=== PATIENT | male | born 1935 | race Caucasian/White ===

== ENCOUNTER 2017-12-18 10:51 | Outpatient (RCR) | payer MEDICARE, SELFPAY | END 2018-01-09 23:59 | disposition home or self-care (01) | LOC: PRC 10:51 | PROVIDERS: PCP Family Medicine; Visit Provider Internal Medicine | DX: Z51.89 Encounter for other specified aftercare (principal) ==

== ENCOUNTER 2018-02-17 06:30 | Inpatient (IN) | payer MEDICARE, SELFPAY ==
[2018-02-17] VITALS (124 sets, daily range): BP systolic 76–120; BP diastolic 50–80; PULSE 57–137; RESP 2–33; TEMP 34–37.2; O2SAT 67–98
--- NOTE | 2018-02-17 06:35 | W.ED.GENAD ---
Discharge Plan Disposition Patient Disposition: [facility] INPATIENT Condition: Serious Discharge Details Chief Complaint: SOB Clinical Impression: Community acquired pneumonia, Atrial fibrillation with RVR, Hypoxia, Sepsis, Hypotension Reason For Visit: ACUTE EXACERBATION OF COPD DUE TO CAP, RESP. FAILU Admit Date/Time: 02/17/18 09:52 Admit Provider: Heavenly Bonilla Attending Provider: Heavenly Bonilla Primary Care Provider: Avery Murphy ED Provider: Yadira Mabry Discharge Data Discharge Date/Time-TO BE ENTERED AT DEPARTURE: 02/17/18 13:08 Medical Decision Making <Khurram Cronin MD - Last Filed: 02/18/18 19:53> 82 yo male with hx of pulmonary hypertension who wears oxygen at night, afib on eliquis, htn, chf, who comes in with chief complaint of shortness of breath and cough since midnight. He denies chest pain or pressure or fevers, does have chills per the patient. He was given a duoneb and solumedrol with ems when his HR was in the 90's and now his HR is in the 130's in afib which is likely secondary to the beta agonists. Will given him metoprolol IV and his home oral dose and monitor. EKG does show st depressions but is likely due to tachycardia as he had same depresions on ekg on 03/20/17 when he was in afib with rvr, will send troponin to eval for infarction. Will obtain chest xray to evaluate for pneumonia and also test for influenza and monitor. He does have mild wheezing at the bases, has been given duoneb and solumedrol with ems, given his tachycardia will hold on additional beta agonists at this time. Pt does have tachypnea and oxygen saturations without oxygen are in the 70's, given work of breathing will initiate bipap. BP is 90 systolic on my exam with MAP of 60, will give 250cc bolus and monitor given his hx of pulmonary htn and chf do not want to volume overload Pt's BP now 100/65 after 250cc, appears more comfortable on bipap. Xray on my read shows right sided infiltrates, wbc of 21, will initiate coverage for CAP as patient denies being hospitalized in the past 3 months. HR is now in the 100's after IV metoprolol Pt's labs show jennifer, low magnesium which I will replete as well. States he does feel better and appearance and work of breathing have improved. We unfortunately don't have any icu or beds at all here, will try to find other hospitals that can accept the pt in transfer. at this time multiple hospitals have been contacted without a bed being found. Pt will be signed out pending an appropriate bed being found for the patient Differential Diagnosis pna, copd, chf, pe Imaging Data Radiologic Study: Attestation: I personally reviewed and interpreted this imaging study as follows: Imaging: X-Ray My impression: right sided infiltrates Lab Data Lab results reviewed: Yes I reviewed the patient's lab results. ECG Data Attestation: I personally reviewed and interpreted this ECG (s) as follows: Prior ECG tracings: available for review Interpretation: afib with rvr, rates in the 130's, qtc 500, st depressions diffusely with elevation in avr similar to ekg in 03/20/17 <Yadira Mabry DO - Last Filed: 02/18/18 12:56> Please see Dr. Cronin's notes for initial presentation, exam and plan. 82-year-old male with a history of COPD, pulmonary hypertension on 3 L of O2 at night, A. fib on Eliquis, CAD, diabetes, hypertension and high cholesterol who presents with cough and shortness of breath since midnight. states no recent antibiotics, recent hospital admission or known sick contacts. Patient was seen here yesterday for first scheduled pulmonary rehab for his COPD and pulmonary hypertension. Patient with O2 sat in the 60s on room air on arrival. Heart rate initially atrial fibrillation and low 100s on arrival, increased to 120s 130s and atrial fibrillation. He was given 5 mg of Lopressor, steroids, neb treatment, and placed on BiPAP and is now improved since arrival. Labs and imaging reviewed and note white blood cell count 21, anion gap 12, creatinine 1.82, magnesium 1.4, troponin 0 0.06, BNP 2393. Chest x-ray notes right lung patchy new infiltrate. Initial EKG noted a rate of 132 and atrial fibrillation with ST depression in V3 through V6 which is been seen in previous, new in II and aVF. No acute ST elevation. Upon my endorsement, plan was for admission or transfer for pneumonia, A. fib with RVR. 0920 --blood pressure remains low, systolic BP 70s-80s. Patient has only received 500 cc liter bolus. Will give an additional 500 cc liter bolus and reevaluate. O2 sat low 90s on BiPAP since arrival. RR low to high 20s but states he feels more comfortable. Will add ABG, albuterol neb, and Solu-Medrol and call hospitalist. 0940 -- d/w hospitalist - accepts pt for admission. 1030 -- SBP 101. RT unable to yet obtain ABG due to poor access. Will try again later. HPI <Khurram Cronin MD - Last Filed: 02/18/18 19:53> General Mode of arrival: EMS. Date/Time Provider Initiated Documentation: 02/17/18 06:35. Limitations to Documentation: no limitations. Information obtained by: patient. History of Present Illness 82 year old M presents to the emergency department with the chief complaint of shortness of breath, described as moderate, with intensity rated at 4. Patient started experiencing this hour(s) (7) and it has been constant. No exacerbating factors reported . Patient notes cough. Patient did receive the following treatments prior to arrival, other (duoneb and 125mg solumedrol with ems) Related Data Home Medications Medication Instructions Recorded Confirmed aspirin [Aspir-81] 81 mg PO DAILY tab-cap 05/11/12 02/17/18 Oxygen l HS #4 09/09/16 11/07/17 glipizide 5 mg PO DAILY #180 tab 09/09/16 02/17/18 metoprolol tartrate 100 mg PO BID #180 tab-cap 11/25/16 02/17/18 nitroglycerin [Nitrostat] 0.4 mg SUBLINGUAL PRN PRN #25 tab 11/25/16 02/17/18 Basaglar KwikPen U-100 Insulin 37 unit SQ Dinner Time 3 Days #3 02/24/17 02/17/18 box cyanocobalamin (vitamin B-12) 1,000 mcg PO DAILY #100 tab 03/24/17 02/17/18 [Vitamin B-12] amlodipine 5 mg PO DAILY 90 Days #90 tab-cap 06/05/17 02/17/18 apixaban 2.5 mg tablet 2.5 mg PO BID 90 Days #180 tab 10/23/17 02/17/18 furosemide 20 mg tablet 30 mg PO DAILY 90 Days #135 tab-cap 11/07/17 02/17/18 metformin 500 mg tablet 500 mg PO BID 11/07/17 02/17/18 methylprednisolone 4 mg tablets in 4 mg PO DIRECTED PRN #1 dose pk 11/07/17 02/17/18 a dose pack atorvastatin 40 mg tablet 40 mg PO DAILY #90 tab-cap 11/28/17 02/17/18 fluticasone 200 mcg-vilanterol 25 1 inh IH DAILY 11/28/17 02/17/18 mcg/dose powder for inhalation blood sugar diagnostic strips #180 strip 12/30/17 02/17/18 lancets 33 gauge #100 ndl 01/02/18 02/17/18 pen needle, diabetic 31 gauge x #100 ndl 01/02/18 02/17/1806/25 fluticasone 200 mcg-vilanterol 25 1 inh IH DAILY 01/09/18 02/17/18 mcg/dose powder for inhalation levothyroxine 75 mcg tablet 75 mcg PO DAILY@0600 #90 tab 02/16/18 02/17/18 Previous Rx's Medication Instructions Recorded metoprolol tartrate 100 mg PO BID #180 tab-cap 11/25/16 Bethel Cortez U-100 Insulin 37 unit SQ Dinner Time 3 Days #3 02/24/17 box cyanocobalamin (vitamin B-12) 1,000 mcg PO DAILY #100 tab 03/24/17 [Vitamin B-12] amlodipine 5 mg PO DAILY 90 Days #90 tab-cap 06/05/17 apixaban 2.5 mg tablet 2.5 mg PO BID 90 Days #180 tab 10/23/17 furosemide 20 mg tablet 30 mg PO DAILY 90 Days #135 tab-cap 11/07/17 methylprednisolone 4 mg tablets in 4 mg PO DIRECTED PRN #1 dose pk 11/07/17 a dose pack atorvastatin 40 mg tablet 40 mg PO DAILY #90 tab-cap 11/28/17 blood sugar diagnostic strips #180 strip 12/30/17 lancets 33 gauge #100 ndl 01/02/18 pen needle, diabetic 31 gauge x #100 ndl 01/02/1806/25 levothyroxine 75 mcg tablet 75 mcg PO DAILY@0600 #90 tab 02/16/18 Allergies Allergy/AdvReac Type Severity Reaction Status Date / Time clindamycin Allergy Intermediate rash Unverified 02/17/18 10:00 EMEKA Inhibitors Allergy Unknown Unverified 02/17/18 10:00 gemfibrozil Allergy Unknown Unverified 02/17/18 10:00 lisinopril Allergy Unknown Unverified 02/17/18 10:00 oxycodone Allergy Unknown Unverified 02/17/18 10:00 indomethacin AdvReac Intermediate AVOID due Unverified 02/17/18 10:00 to ANTICOAGULATION Thiazides AdvReac Unknown Unverified 02/17/18 10:00 Review of Systems <Khurram Cronin MD - Last Filed: 02/18/18 19:53> Review of Systems All systems reviewed & are unremarkable except as noted in HPI and below Constitutional Denies fever(s) and Denies weakness Eyes Denies loss of vision ENT Denies change in voice Cardiovascular Denies chest pain Gastrointestinal Denies abdominal pain, Denies nausea and Denies vomiting Genitourinary Denies dysuria Musculoskeletal Denies joint swelling Integumentary/Breasts Denies rash Neurologic Denies loss of vision and Denies weakness Psychiatric Denies depression Endocrine Denies heat intolerance PFS <Khurram Cronin MD - Last Filed: 02/18/18 19:53> Medical History Other acute and subacute form of ischemic heart disease (Chronic 06/07/11) Obesity, unspecified (Chronic 02/15/11) 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 (Chronic 06/07/11) Hyperlipidemia (Chronic 02/15/11) Hearing loss (Chronic 02/15/11) Essential hypertension (Chronic 02/15/11) Dyspnea on exertion (Chronic 05/11/13) Diabetes mellitus (Chronic 08/10/00) Cough (Resolved 04/03/12) Coronary artery disease involving [place] coronary artery of [place] heart without angina pectoris (Chronic) Chronic atrial fibrillation (Chronic) Coronary atherosclerosis of [place] coronary vessel (Chronic 02/15/11) Benign neoplasm of colon (Resolved 02/15/11) Atrial arrhythmia (Chronic 02/15/11) Atherosclerosis of [place] coronary artery of [place] heart with unstable angina pectoris (Chronic 02/15/11) Anticoagulation goal of INR 2 to 3 (Resolved 05/12/11) Anticoagulation adequate with anticoagulant therapy (Chronic 05/12/11) Adenoma of transverse colon (Resolved 02/15/11) Arthropathy (Chronic 02/15/11) Restrictive pattern present on pulmonary function testing (Chronic) Abnormal diffusion capacity determined by pulmonary function test (Chronic) RML pneumonia (Resolved) Gout (Chronic) Hypothyroid (Chronic) B12 deficiency (Chronic) Macrocytosis without anemia (Chronic) ASCVD (arteriosclerotic cardiovascular disease) HLD (hyperlipidemia) HTN (hypertension) T2DM (type 2 diabetes mellitus) Tubular adenoma Surgical History Fracture, tibia (Acute ~02/1994) History of appendectomy (Chronic ~01/1954) Hx of CABG (Chronic ~02/2002) Hx of cholecystectomy (Chronic ~01/1991) Family History Mother Cancer Father Stroke Hypertension Sister No problems noted. Brother No problems noted. Brother No problems noted. 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 water heater temp set < 120 deg: Yes working smoke detector in home: Yes fire extinguisher in home: Yes carbon monox detector in home: Yes victim of physical abuse: No victim of emotional abuse: No victim of sexual abuse: No additional social history: info from old record Exam <Khurram Cronin MD - Last Filed: 02/18/18 19:53> Const Orientation: alert [facility] Head: normal to inspection Ears: external ears normal General nose exam: external nose normal Mouth: moist mucous membranes Eyes General: appearance normal, both eyes and all related structures Neck Neck: normal visual inspection Resp Effort & Inspection: no pursed lip breathing Cardio Rate: regular rate Skin General skin exam: no rashes or lesions noted Neuro General: alert and oriented x3 Extrem General: normal to inspection Psych Mental Status: mental status grossly normal Critical Care Time <Khurram Cronin MD - Last Filed: 02/18/18 19:53> Critical Care Time: Yes Total Critical Care Time: 60 Attestation: time spent reviewing ekgs, labs, and frequent reassessments in patient with afib with rvr and hypoxia requiring bipap and potential to deteriorate at any time Sign Out <Khurram Cronin MD - Last Filed: 02/18/18 19:53> Sign Out Data: Sign Out Comment: try to find a bed for the patient Last updated by Khurram Cronin MD at 02/17/18 07:45
[2018-02-17] MEDS: Metoprolol 5 MG/5 ML VIAL IVP (06:50)
[2018-02-17] MEDS: Normal Saline 1,000 ML 1000 ML IV (06:50)
[2018-02-17 06:55] LABS: Abs Immature Grans 0.08 k/cumm (0.0-0.09); Absolute Basophil Count 0.02 k/cumm (0.0-0.2); Absolute Eosinophil Count 0.04 k/cumm (0.0-0.7); Absolute Lymphocyte Count 0.96 k/cumm (1.2-3.4); Basophils % 0.1; Eosinophils % 0.2; HCT 50.1 % (40.0-50.0); HGB 16.2 g/dL (13.5-17.5); Immature Grans % 0.4; Lymphocytes % 4.5; Mean Corp. HGB Concentration 32.3 g/dL (32.0-36.0); Mean Corpuscular Hemoglobin 30.1 pg (27.0-33.0); Mean Corpuscular Volume 93.1 fL (80-95); Mean Platelet Volume 12.2 fL (8.0-11.0); Monocytes % 6.9; Neutrophils % 87.9; Platelet Count 178 x1000/uL (130-400); RBC 5.38 m/cumm (4.50-6.00); RBC Distribution Width 15.5 % (11.8-14.1); White Blood Cell Count 21.26 k/cumm (4.4-10.8)
[2018-02-17] MEDS: Normal Saline Flush 10 ML SYR IVP ×5 (06:56→17:24)
--- NOTE | 2018-02-17 07:00 | DI.RAD_ITS ---
SYMPTOMS/DIAGNOSIS: SHORTNESS OF BREATH PORTABLE FRONTAL CHEST: Comparison 04/10/17. The heart size is stable and within normal limits. Sternal wires are in place. The left lung is clear. There is an infiltrate seen in the right upper and right lower lobes. There is blunting of the right costophrenic angle which appears stable and is likely scarring. No pneumothorax is seen. No left pleural effusion is present. There are degenerative changes seen in the spine. IMPRESSION: Right upper and right lower lobe pneumonia.
[2018-02-17 07:07] LABS: Absolute Monocyte Count 1.47 k/cumm (0.11-0.7); Absolute Neutrophil Count 18.69 k/cumm (1.2-6.7); INR 1.2 (0.9-1.1); PTT Activated 22.6 sec (21.0-31.4); Prothrombin Time 12.1 sec (9.3-11.0)
[2018-02-17] MEDS: Metoprolol 50 MG TAB 100 MG PO ×2 (07:07→20:28)
[2018-02-17 07:15] LABS: ALT 25 U/L (12-78); AST 15 U/L (15-37); Albumin 3.4 g/dL (3.4-5.0); Alkaline Phosphatase 82 U/L (46-116); Anion Gap 12.2 mmol/L (3-11); BUN 31 mg/dL (7-18); Bilirubin, Total 0.8 mg/dL (0.2-1.0); CO2 24.8 mmol/L (21.0-32.0); CREATININE 1.82 mg/dL (0.70-1.30); Calcium 8.7 mg/dL (8.5-10.1); Chloride 105 mmol/L (98-107); Estimated GFR 35.93 (mL/min/1.73m2); Glucose 203 mg/dL (70-100); Magnesium 1.4 mg/dL (1.8-2.4); NT-proBNP 2393 pg/mL; Potassium 3.8 mmol/L (3.5-5.1); Sodium 142 mmol/L (136-145); Total Protein 6.4 g/dL (6.4-8.2); Troponin I 0.06 ng/mL (0.00-0.06)
[2018-02-17] MEDS: MAGNESIUM SULFATE 1 GM/100 ML BAG IVPB ×2 (08:04→14:47)
[2018-02-17] MEDS: AZITHROMYCIN 500 MG in Normal Saline 250 ML 250 MG IVPB (08:06)
--- NOTE | 2018-02-17 09:17 | DI.VRAD_ITS ---
EXAM: XR Chest, 1 View EXAM DATE/TIME: 02/17/2018 6:37 AM CLINICAL HISTORY: 82 years old, male; Signs and symptoms; Shortness of breath; Prior surgery; Surgery date: 6+ months; Surgery type: Cabg; Patient HX: SOB, low o2 stat TECHNIQUE: XR of the chest, 1 view. COMPARISON: CR CHEST 2 VIEWS PA,LAT 04/10/2017 8:51 AM FINDINGS: Lungs: There is new patchy infiltrate throughout much of the right lung, sparing the apex. Some retrocardiac atelectasis or infiltrate is also present. Pleural space: Unremarkable. No pleural effusion. No pneumothorax. Heart/Mediastinum: The cardiomediastinal silhouette is fairly stable in appearance. Bones/joints: Median sternotomy wires are again present. Degenerative changes again involve the spine and shoulders. IMPRESSION: Patchy infiltrate throughout much of the right lung, sparing the apex, with some retrocardiac atelectasis or infiltrate. Dictated and Authenticated by: Khurram Driscoll MD. Ordering:DOUG Paulson MD
[2018-02-17 09:29] LABS: Lactate-non-spesis 2.8 mmol/L (0.6-1.4)
[2018-02-17] MEDS: Normal Saline 250 ML 500 ML IV (09:29)
[2018-02-17] MEDS: Albuterol 2.5 MG/3 ML INH SOLN VIAL UPD (09:47)
[2018-02-17] MEDS: methylPREDNISolone SUCC 125 MG VIAL IVP (09:54)
[2018-02-17 12:00] LABS: Bilirubin Negative (Negative); Blood Negative (Negative); Clarity Clear; Glucose Negative (Negative); Ketones Trace mg/dL (Negative); Leukocyte Esterase Negative (Negative); Nitrite Negative (Negative); Specific Gravity >= 1.030 (1.005-1.025); pH 5.5 (5-8)
[2018-02-17 12:14] LABS: Bacteria Few HPF (Negative); Crystals Mod Calcium Oxalate HPF (Negative); Epithelial Cells Rare HPF (Negative); Mucus Moderate (Negative); RBC Negative (0-2); WBC 0-2 HPF (0-5)
[2018-02-17 12:15] LABS: C & S Indicated? No; Casts 3-5 Hyaline LPF (Negative)
[2018-02-17 12:19] LABS: HCO3 21 mmol/L (22-28); pCO2 35 mmHg (34-47); pH 7.39 (7.35-7.45); pO2 144 mmHg (83-108); sO2 99 % (94-98); tCO2 18 mmol/L (22-29)
[2018-02-17 12:21] LABS: BE -4.4 mmol/L (-3-3); FIO2L BiPAP 12/5 L; Site Right Radial
[2018-02-17 12:22] LABS: FIO2 100% %
--- NOTE | 2018-02-17 14:10 | PT.INIE ---
Date of service: 02/17/18 Time of Service: 14:10 PT Notes Inpatient Physical Therapy Evaluation Date: 02/17/2018 Referring Doctor: Heavenly Bonilla MD PT Orders: PT CONSULT: Eval/treat Precautions: Monitor O2 sats with activity Patient Profile/Admitting Diagnosis: Patient is an 82-year-old male admitted with pneumonia, atrial fibrillation, hypoxia PMHX: Restrictive lung disease, pulmonary hypertension, chronic obstructive pulmonary disease, coronary artery disease, mitral and aortic valve stenosis and insufficiency affecting both valves, congestive heart failure, hypertension, atrial fibrillation, diabetes mellitus type II, hearing loss, hyperlipidemia, adenoma of transverse colon, gout, hypothyroid, B12 deficiency, macrocytosis without anemia Social History/Home Situation: Lives with in a house 2 steps no railing to enter, 12 steps with railing to upstairs. Equipment Owned/DME: None Subjective: Patient lying in bed RN in room, patient visiting with , agreeable to PT consult. Objective: General Observation: Airflow to 15 L oxygen airflow settings 45 L/min, 65%, telemetry, BP monitor Mental Status: A and O x3 Pain: No complaints of pain Vital Signs: 93% on above oxygen settings ROM: Right Upper Extremity: AROM WNL Left Upper Extremity: AROM WNL Right Lower Extremity: AROM WNL Left Lower Extremity: AROM WNL Strength: Right Upper Extremity: 4/5 shoulder flexion, 5/5 bicep, 5/5 aircraft lay out worker Left Upper Extremity: 4/5 shoulder flexion, 5/5 bicep, 5/5 aircraft lay out worker Right Lower Extremity: 5/5 throughout Left Lower Extremity: 5/5 throughout Bed Mobility/Transfers: Supine to sit: HOB 30 degrees independent Sit to stand: SBA with FWW Stand to sit: SBA Sit to supine: Independent Gait: SBA with FWW standing at bedside marching in place x30 repetitions. Patient without shortness of breath on exertion. Therex: Ankle pumps, long arc quad x20 reps Balance: Static Sitting: Normal Dynamic Sitting: Normal Static Standing: Fair Dynamic Standing: Fair Special Tests: Mobility Limitations Standardized Measure [facility] AM-PAC 6 clicks Basic Mobility Inpatient Short Form: Raw Score: 18 standardized Score: 43.63 CMS Score: 46.58% CMS Modifier: CK Informed Consent/Education: Patient instructed in purpose of PT consult and plan of care. Assessment: Patient is an 82-year-old male admitted with pneumonia, atrial fibrillation, hypoxia in setting of Restrictive lung disease, pulmonary hypertension, chronic obstructive pulmonary disease, coronary artery disease, mitral and aortic valve stenosis and insufficiency affecting both valves, congestive heart failure, hypertension, atrial fibrillation. Patient presents with the following impairment level findings: Decreased strength with standing transfers and gait mobility, high oxygen requirements due to admission with hypoxia and pneumonia. Patient will benefit from skilled therapy intervention for strengthening and progressive mobility training. Anticipate return to home setting when medically cleared. Impairments are contributing to the following functional limitations: AMPAC score CMS Score: 46.58% Patient is assessed as a Moderate 71255 complexity based on the following: History: See above Examination: See above Presentation: Evolving Decision Making: AMPAC score CMS Score: 46.58% Goals: Goals X1 week 1. Supine-Sit: Independent 2. Sit-Supine: Independent 3. Sit-Stand: Independent 4. Stand-Sit: Independent 5. Bed-Chair: Supervision 6. Chair-Bed: Supervision 7. Gait: Supervision no assistive device 100 feet x2 8. Stairs: Up/down 12 steps with railing, supervision Plan of Care/Treatment Plan: 1-2x/day, 7 days/week x 1 week. Plan of care has been reviewed with the ELECTRONICS ENGINEERING MANAGER providing the service under Physical Therapy direction. Initiate Physical Therapy intervention for strengthening, bed mobility, transfers, gait, stairs, balance training, use of assistive device. DISCHARGE RECOMMENDATIONS: Home with TREATMENT CODE/TIME: 25 minutes IE 1410 G Codes in the area mobility of walking and moving around: current status [id number] CK; projected status GP [id number]. Discharge status (if discharging) GP [id number] CK based on AMPA scores Kiki Panda PT, CLT [facility] Disclaimer: This note was created using [employer] voice recognition software. It was reviewed for major content. However, there may be multiple small discrepancies and errors due to the voice recognition aspects of the software..
--- NOTE | 2018-02-17 14:14 | IN_ITS ---
Date of service: 02/17/18 Time of Service: 14:10 PT Notes Inpatient Physical Therapy Evaluation Date: 02/17/2018 Referring Doctor: Heavenly Bonilla MD PT Orders: PT CONSULT: Eval/treat Precautions: Monitor O2 sats with activity Patient Profile/Admitting Diagnosis: Patient is an 82-year-old male admitted with pneumonia, atrial fibrillation, hypoxia PMHX: Restrictive lung disease, pulmonary hypertension, chronic obstructive pulmonary disease, coronary artery disease, mitral and aortic valve stenosis and insufficiency affecting both valves, congestive heart failure, hypertension, atrial fibrillation, diabetes mellitus type II, hearing loss, hyperlipidemia, adenoma of transverse colon, gout, hypothyroid, B12 deficiency, macrocytosis without anemia Social History/Home Situation: Lives with in a house 2 steps no railing to enter, 12 steps with railing to upstairs. Equipment Owned/DME: None Subjective: Patient lying in bed RN in room, patient visiting with , agreeable to PT consult. Objective: General Observation: Airflow to 15 L oxygen airflow settings 45 L/min, 65%, telemetry, BP monitor Mental Status: A and O x3 Pain: No complaints of pain Vital Signs: 93% on above oxygen settings ROM: Right Upper Extremity: AROM WNL Left Upper Extremity: AROM WNL Right Lower Extremity: AROM WNL Left Lower Extremity: AROM WNL Strength: Right Upper Extremity: 4/5 shoulder flexion, 5/5 bicep, 5/5 manager pmo Left Upper Extremity: 4/5 shoulder flexion, 5/5 bicep, 5/5 manager pmo Right Lower Extremity: 5/5 throughout Left Lower Extremity: 5/5 throughout Bed Mobility/Transfers: Supine to sit: HOB 30 degrees independent Sit to stand: SBA with FWW Stand to sit: SBA Sit to supine: Independent Gait: SBA with FWW standing at bedside marching in place x30 repetitions. Patient without shortness of breath on exertion. Therex: Ankle pumps, long arc quad x20 reps Balance: Static Sitting: Normal Dynamic Sitting: Normal Static Standing: Fair Dynamic Standing: Fair Special Tests: Mobility Limitations Standardized Measure [facility] AM-PAC 6 clicks Basic Mobility Inpatient Short Form: Raw Score: 18 standardized Score: 43.63 CMS Score: 46.58% CMS Modifier: CK Informed Consent/Education: Patient instructed in purpose of PT consult and plan of care. Assessment: Patient is an 82-year-old male admitted with pneumonia, atrial fibrillation, hypoxia in setting of Restrictive lung disease, pulmonary hypertension, chronic obstructive pulmonary disease, coronary artery disease, mitral and aortic valve stenosis and insufficiency affecting both valves, congestive heart failure, hypertension, atrial fibrillation. Patient presents with the following impairment level findings: Decreased stren gth with standing transfers and gait mobility, high oxygen requirements due to admission with hypoxia and pneumonia. Patient will benefit from skilled therapy intervention for strengthening and progressive mobility training. Anticipate return to home setting when medically cleared. Impairments are contributing to the following functional limitations: AMPAC score CMS Score: 46.58% Patient is assessed as a Moderate 77603 complexity based on the following: History: See above Examination: See above Presentation: Evolving Decision Making: AMPAC score CMS Score: 46.58% Goals: Goals X1 week 1. Supine-Sit: Independent 2. Sit-Supine: Independent 3. Sit-Stand: Independent 4. Stand-Sit: Independent 5. Bed-Chair: Supervision 6. Chair-Bed: Supervision 7. Gait: Supervision no assistive device 100 feet x2 8. Stairs: Up/down 12 steps with railing, supervision Plan of Care/Treatment Plan: 1-2x/day, 7 days/week x 1 week. Plan of care has been reviewed with the SET KEY DRIVER providing the service under Physical Therapy direction. Initiate Physical Therapy intervention for strengthening, bed mobility, transfers, gait, stairs, balance training, use of assistive device. DISCHARGE RECOMMENDATIONS: Home with TREATMENT CODE/TIME: 25 minutes IE 1410 G Codes in the area mobility of walking and moving around: current status [id number] CK; projected status GP [id number]. Discharge status (if discharging) GP G8980 CK based on AMPAC scores Kiki Panda PT, CLT [facility] Disclaimer: This note was created using [employer] voice recognition software. It was reviewed for major content. However, there may be multiple small discrepancies and errors due to the voice recognition aspects of the software..
[2018-02-17] MEDS: MAGNESIUM SULFATE 2 GM/50 ML BAG IVPB (15:59)
[2018-02-17] MEDS: Insulin Aspart 300 UNITS/3 ML PEN SC ×2 (17:19→20:58)
[2018-02-17] MEDS: methylPREDNISolone SUCC 125 MG VIAL 80 MG IVP (17:25)
--- NOTE | 2018-02-17 18:09 | HPE_ITS ---
Date of service: 02/17/18 Time of Service: 11:30 Assessment and Plan (1) Sepsis: Current visit: Yes Status: Acute Due to CAP. Impending shock on presentation, luckily responded to fluids. Continue to monitor in the ICU overnight with serial lactates. Patient could not tolerate ongoing IVF due to developing fluid overload, and his BP's now stabilized. Continue azithromycin/rocephin. Await blood/sputum cultures. (2) CAP (community acquired pneumonia): Current visit: Yes Status: Acute As above (3) Acute and chronic respiratory failure with hypoxia: Current visit: Yes Status: Acute Requiring BiPAP, now improving. ABG done after Bipap had been on for over an hour reveals no CO2 retention and preserved PH, but hypoxia. The patient was transitioned to heated humidified high flow. Wean O2 as tolerated. Treat disease process as above. In addition, systemic steroids were added. (4) Chronic atrial fibrillation: Current visit: No Status: Chronic with RVR on initial presentation, treated with beta blockers, now rate controlled. Continue home beta blockers. (5) Hypomagnesemia: Current visit: Yes Status: Acute Replete and monitor (6) Pulmonary hypertension: Current visit: No Status: Acute Follows with pulmonary and [facility] pulmonary hypertension clinic. Volume control essential. IVF d/c'ed. Monitor I/O's and daily weights. (7) Restrictive lung disease: Current visit: No Status: Acute Does seem to have a response to bronchodilators - continue nebs. (8) Type 2 diabetes mellitus with hyperglycemia: Current visit: No Status: Acute Continue home lantus with corrective scale. 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 Monitor strict I/O's and daily weights. (10) Essential hypertension: Current visit: No Status: Chronic hold norvasc. Ok to continue BB. (11) Coronary artery disease involving [place] coronary artery of [place] heart without angina pectoris: Current visit: No Status: Chronic No evidence of ACS. Continue home therapy. (12) JOSE (acute kidney injury): Current visit: Yes Status: Acute Patient was cautiously hydrated in the ER. Recheck BMP in am. (13) Discharge planning issues: Current visit: Yes Status: Acute Patient states he is DNR/DNI and that he has forms on file here and at [facility]. (14) DVT prophylaxis: Current visit: Yes Status: Acute On therapeutic eliquis History of Present Illness Chief Complaint: shortness of breath Narrative: Mr Peoples is an 82 year old male with PMHx of chronic hypoxic respiratory failure, on nocturnal oxygen at 6L, as well as severe pulmonary hypertension, restrictive lung disease, CAD s/p CABG, chronic systolic CHF with EF of 45-50%, Afib on eliquis, who presented to [facility] ED this morning after an acute onset of shortness of breath since 1 am this morning as well as dry cough. The patient stated he felt like he was coming down with a cold for the last couple of days. He denies chills, fevers, runny nose, sore throat, or sick contacts. He participates with pulmonary rehab and was just there yesterday, at about his baseline. When the patient arrived to the ED, his O2 sats on room air were in the 80's. He was in respiratory distress to the point of needing BiPAP. He was also hypotensive with SBP's in the 70's-80's. He did respond to IV fluids, was treated with steroids, nebulizers, and IV antibiotics (azithromycin, rocephin). He is being admitted to [facility] ICU for further care. Review of Systems Review of Systems 12 systems reviewed. Pertinent positives and negatives are as per HPI. 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 (Chronic 06/07/11) Hyperlipidemia (Chronic 02/15/11) Hearing loss (Chronic 02/15/11) Essential hypertension (Chronic 02/15/11) Dyspnea on exertion (Chronic 05/11/13) Diabetes mellitus (Chronic 08/10/00) Cough (Resolved 04/03/12) Coronary artery disease involving [place] coronary artery of [place] heart without angina pectoris (Chronic) Chronic atrial fibrillation (Chronic) Coronary atherosclerosis of [place] coronary vessel (Chronic 02/15/11) Benign neoplasm of colon (Resolved 02/15/11) Atrial arrhythmia (Chronic 02/15/11) Atherosclerosis of [place] coronary artery of [place] heart with unstable angina pectoris (Chronic 02/15/11) Anticoagulation goal of INR 2 to 3 (Resolved 05/12/11) Anticoagulation adequate with anticoagulant therapy (Chronic 05/12/11) Adenoma of transverse colon (Resolved 02/15/11) Arthropathy (Chronic 02/15/11) Restrictive pattern present on pulmonary function testing (Chronic) Abnormal diffusion capacity determined by pulmonary function test (Chronic) RML pneumonia (Resolved) Gout (Chronic) Hypothyroid (Chronic) B12 deficiency (Chronic) Macrocytosis without anemia (Chronic) ASCVD (arteriosclerotic cardiovascular disease) HLD (hyperlipidemia) HTN (hypertension) T2DM (type 2 diabetes mellitus) Tubular adenoma Surgical History Fracture, tibia (Acute ~02/1994) History of appendectomy (Chronic ~01/1954) Hx of CABG (Chronic ~02/2002) Hx of cholecystectomy (Chronic ~01/1991) Family History Mother Cancer Father Stroke Hypertension Sister No problems noted. Brother No problems noted. Brother No problems noted. 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 driver: No water heater temp set < 120 deg: Yes working smoke detector in home: Yes fire extinguisher in home: Yes carbon monox detector in home: Yes victim of physical abuse: No victim of emotional abuse: No victim of sexual abuse: No additional social history: info from old record Meds Home Medications Medication Instructions Recorded Confirmed Type aspirin [Aspir-81] 81 mg PO DAILY tab-cap 05/11/12 02/17/18 History Oxygen l HS #4 09/09/16 11/07/17 History glipizide 5 mg PO DAILY #180 tab 09/09/16 02/17/18 History metoprolol tartrate 100 mg PO BID #180 tab-cap 11/25/16 02/17/18 Rx nitroglycerin [Nitrostat] 0.4 mg SUBLINGUAL PRN PRN #25 tab 11/25/16 02/17/18 History Bet[place] Cortez U-100 Insulin 37 unit SQ Dinner Time 3 Days #3 02/24/17 02/17/18 Rx box cyanocobalamin (vitamin B-12) 1,000 mcg PO DAILY #100 tab 03/24/17 02/17/18 Rx [Vitamin B-12] amlodipine 5 mg PO DAILY 90 Days #90 tab-cap 06/05/17 02/17/18 Rx apixaban 2.5 mg tablet 2.5 mg PO BID 90 Days #180 tab 10/23/17 02/17/18 Rx furosemide 20 mg tablet 30 mg PO DAILY 90 Days #135 tab-cap 11/07/17 02/17/18 Rx metformin 500 mg tablet 500 mg PO BID 11/07/17 02/17/18 History methylprednisolone 4 mg tablets in 4 mg PO DIRECTED PRN #1 dose pk 11/07/17 02/17/18 Rx a dose pack atorvastatin 40 mg tablet 40 mg PO DAILY #90 tab-cap 11/28/17 02/17/18 Rx fluticasone 200 mcg-vilanterol 25 1 inh IH DAILY 11/28/17 02/17/18 History mcg/dose powder for inhalation blood sugar diagnostic strips #180 strip 12/30/17 02/17/18 Rx lancets 33 gauge #100 ndl 01/02/18 02/17/18 Rx pen needle, diabetic 31 gauge x #100 ndl 01/02/18 02/17/18 Rx 5/16 fluticasone 200 mcg-vilanterol 25 1 inh IH DAILY 01/09/18 02/17/18 History mcg/dose powder for inhalation levothyroxine 75 mcg tablet 75 mcg PO DAILY@0600 #90 tab 02/16/18 02/17/18 Rx Allergies Allergy/AdvReac Type Severity Reaction Status Date / Time clindamycin Allergy Intermediate rash Unverified 02/17/18 10:00 EMEKA Inhibitors Allergy Unknown Unverified 02/17/18 10:00 gemfibrozil Allergy Unknown Unverified 02/17/18 10:00 lisinopril Allergy Unknown Unverified 02/17/18 10:00 oxycodone Allergy Unknown Unverified 02/17/18 10:00 indomethacin AdvReac Intermediate AVOID due Unverified 02/17/18 10:00 to ANTICOAGULATION Thiazides AdvReac Unknown Unverified 02/17/18 10:00 Exam Narrative Exam Narrative: General: Very pleasant elderly male, sitting up in bed on Bipap, which limits our interview. Not in acute distress Neurological: A&Ox3, hard of hearing, no focal deficits Psychiatric: appropriate speech pattern/content Skin: Redness underneath the bipap mask over the nasal bridge; chronic venous stasis dermatitis HEENT: oropharyngeal exam deferred as patient is on BiPAP. EOMI, MMM, no obvious JVD, no sumbandibular/cervical lymphadenopathy, no goiter Cardiovascular: Irregularly irregular rhythm, + ASHISH Lungs: Wheezing on expiration B, crackles at B bases Gastrointestinal: abdomen soft, nontender, nondistended Extremities: +1 edema BLE's, no clubbing/cyanosis Results Imaging Additional studies: CXR: RUL/RLL PNA EKG: Afib with RVR, HR 132, incomplete RBBB, morphology unchanged Labs : 02/17/18 06:40 02/17/18 06:40 Laboratory Results - last 24 hr 02/17/18 02/17/18 02/17/18 06:40 06:40 06:40 WBC 21.26 H RBC 5.38 Hgb 16.2 Hct 50.1 H MCV 93.1 MCH 30.1 MCHC 32.3 RDW 15.5 H Plt Count 178 MPV 12.2 H Immature Gran % 0.4 Neutrophils % 87.9 Lymphocytes % 4.5 Monocytes % 6.9 Eosinophils % 0.2 Basophils % 0.1 Absolute Neutrophils 18.69 H Absolute Lymphocytes 0.96 L Absolute Monocytes 1.47 H Absolute Eosinophils 0.04 Absolute Basophils 0.02 PT 12.1 H INR 1.2 H APTT 22.6 Sample Site pCO2 pO2 O2 Saturation ABG pH ABG HCO3 ABG Total CO2 ABG Base Excess Oxygen Liter Flow FiO2 Sodium 142 Potassium 3.8 Chloride 105 Carbon Dioxide 24.8 Anion Gap 12.2 H BUN 31 H Creatinine 1.82 H Estimated GFR/1.73 m2 35.93 Glucose 203 H Lactate Calcium 8.7 Magnesium 1.4 L Total Bilirubin 0.8 AST 15 ALT 25 Alkaline Phosphatase 82 Troponin I 0.06 NT-Pro-B Natriuret Pep 2393 H Total Protein 6.4 Albumin 3.4 Urine Color Urine Clarity Urine pH Ur Specific [place] Urine Protein Urine Ketones Urine Blood Urine Nitrite Urine Bilirubin Urine Urobilinogen Ur Leukocyte Esterase Urine RBC Urine WBC Ur Epithelial Cells Urine Crystals Urine Bacteria Urine Casts Urine Mucus Ur Culture Indicated? Urine Glucose 02/17/18 02/17/18 02/17/18 09:22 09:42 11:45 WBC RBC Hgb Hct MCV MCH MCHC RDW Plt Count MPV Immature Gran % Neutrophils % Lymphocytes % Monocytes % Eosinophils % Basophils % Absolute Neutrophils Absolute Lymphocytes Absolute Monocytes Absolute Eosinophils Absolute Basophils PT INR APTT Sample Site Right radial pCO2 35 pO2 144 H O2 Saturation 99 H ABG pH 7.39 ABG HCO3 21 L ABG Total CO2 18 L ABG Base Excess -4.4 L Oxygen Liter Flow Bipap 12/5 FiO2 100% Sodium Potassium Chloride Carbon Dioxide Anion Gap BUN Creatinine Estimated GFR/1.73 m2 Glucose Lactate 2.8 H Calcium Magnesium Total Bilirubin AST ALT Alkaline Phosphatase Troponin I NT-Pro-B Natriuret Pep Total Protein Albumin Urine Color Suzette Urine Clarity Clear Urine pH 5.5 Ur Specific [place] >= 1.030 H Urine Protein Trace H Urine Ketones Trace H Urine Blood Negative Urine Nitrite Negative Urine Bilirubin Negative Urine Urobilinogen 1.0 H Ur Leukocyte Esterase Negative Urine RBC Negative Urine WBC 0-2 Ur Epithelial Cells Rare Urine Crystals Mod calcium oxalate Urine Bacteria Few Urine Casts 3-5 hyaline Urine Mucus Moderate Ur Culture Indicated? No Urine Glucose Negative Last Vital Signs Temp 36.9 C 02/17/18 15:03 Pulse 79 02/17/18 13:31 Resp 19 02/17/18 13:40 BP 93/54 L 02/17/18 13:31 Pulse Ox 94 L 02/17/18 15:03
[2018-02-17] MEDS: Albuterol/Ipratropium 3 ML UPD VIAL UPD (18:41)
[2018-02-17 18:51] LABS: Lactate-non-spesis 3.1 mmol/L (0.6-1.4)
[2018-02-17] MEDS: Apixaban 2.5 MG TAB PO (20:28)
[2018-02-17] MEDS: guaiFENesin 600 MG TABCR PO (20:28)
[2018-02-17] MEDS: Budesonide/Formoterol 160/4.5 6 GM 60 PUFF INH IH (20:29)
[2018-02-17] MEDS: Insulin Glargine 300 UNITS/3 ML PEN 37 UNITS SC (20:57)
[2018-02-17 22:23] LABS: Lactate-non-spesis 3.1 mmol/L (0.6-1.4)
[2018-02-18] VITALS (94 sets, daily range): BP systolic 92–140; BP diastolic 59–97; PULSE 54–94; RESP 2–29; TEMP 34–37.2; O2SAT 84–99
[2018-02-18] MEDS: Normal Saline Flush 10 ML SYR IVP ×2 (02:24→09:34)
[2018-02-18] MEDS: Albuterol/Ipratropium 3 ML UPD VIAL UPD ×5 (02:24→23:41)
[2018-02-18] MEDS: methylPREDNISolone SUCC 125 MG VIAL 80 MG IVP ×3 (02:25→18:26)
[2018-02-18] MEDS: Levothyroxine 75 MCG TAB PO (06:20)
[2018-02-18 07:19] LABS: Anion Gap 9.2 mmol/L (3-11); BUN 32 mg/dL (7-18); CO2 24.8 mmol/L (21.0-32.0); CREATININE 1.34 mg/dL (0.70-1.30); Calcium 8.4 mg/dL (8.5-10.1); Chloride 103 mmol/L (98-107); Estimated GFR 51.16 (mL/min/1.73m2); Glucose 258 mg/dL (70-100); Magnesium 2.4 mg/dL (1.8-2.4); Potassium 4.4 mmol/L (3.5-5.1); Sodium 137 mmol/L (136-145)
[2018-02-18] MEDS: Budesonide/Formoterol 160/4.5 6 GM 60 PUFF INH IH ×2 (07:22→20:25)
[2018-02-18 07:24] LABS: Abs Immature Grans 0.08 k/cumm (0.0-0.09); Absolute Lymphocyte Count 0.79 k/cumm (1.2-3.4); Immature Grans % 0.4; Lymphocytes % 3.9; Mean Corp. HGB Concentration 32.7 g/dL (32.0-36.0); Mean Corpuscular Hemoglobin 30.3 pg (27.0-33.0); Mean Corpuscular Volume 92.7 fL (80-95); Mean Platelet Volume 13.2 fL (8.0-11.0); Monocytes % 4.7; Platelet Count 111 x1000/uL (130-400); RBC 4.26 m/cumm (4.50-6.00); RBC Distribution Width 15.3 % (11.8-14.1); White Blood Cell Count 20.28 k/cumm (4.4-10.8)
[2018-02-18 07:25] LABS: Absolute Monocyte Count 0.95 k/cumm (0.11-0.7); Absolute Neutrophil Count 18.45 k/cumm (1.2-6.7); HCT 39.5 % (40.0-50.0); HGB 12.9 g/dL (13.5-17.5)
--- NOTE | 2018-02-18 09:01 | PDOC.CMIN ---
- If Service Date Differs Date of service: 02/18/18 Time of Service: 09:01 Care Management Initial Assess REASON FOR HOSPITALIZATION:: Acute Exacerbation of COPD due to CAP, resp failure PAST MEDICAL HISTORY/PAST SURGICAL HISTORY:: Pulmonary HTN, mitral and aortic valve stenosis, hyperlipidemia, HTN, dyspnea, DM, CAD, Afib, Adenoma of the tranverse colon, gout, hypothyroid, B12 def, Macrocytosis. Surgical HX: CABG, Anton[place], and knee replacement. PREVIOUS FUNCTIONAL STATUS/SOCIAL/FAMILY SUPPORTS:: Romero resides in [place] with his of fifty-eight years, Francisca. The couple had five daughters and report many grandchildren and great grandchildren. 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 CURRENT FUNCTIONAL STATUS:: Romero is sitting up in bed he continues on humidified oxygen and receiving care in the ICU. His spouse is at his bedside. PT and OT consult today. He is receiving IV antibiotcs and resp support. He is feeling improved today. ADVANCE DIRECTIVES:: On file at [facility] Has patient been provided with information about the portal?: Yes Did the patient sign up for the portal?: No (already enrolled) CODE STATUS:: DNR/DNI INSURANCE COVERAGE / FINANCIAL ISSUES:: Medicare and AARP CURRENT HOME/COMMUNITY SERVICES/EQUIPMENT:: Oxygen through [facility]. PRIMARY CARE PHYSICIAN:: POTENTIAL DISCHARGE NEEDS:: Follow up appointmentn with primary care provider scheduled prior to discharge. CM did discuss admission of patient with [facility] care coordianator at [facility] PATIENT/FAMILY EDUCATION NEEDS:: Discharge education, limitations and follow up plan of care including ask me three education, limitations and self management. ANTICIPATED BARRIERS TO DISCHARGE:: None identified at this time. TRANSPORTATION:: Via private car with spouse at time of discharge. PLAN:: Romero remains an ICU paitent, he is receiving IV antibiotics and resp support. Anticipate he will be discharged home when medically ready resumption of oxygen services through [facility] at time of discharge. CM reviewed admission with [facility] administrator at [facility]. CM to continue to provide discharge planning and support throughout patients stay.
--- NOTE | 2018-02-18 09:10 | INITIAL_ITS ---
- If Service Date Differs Date of service: 02/18/18 Time of Service: 09:01 Care Management Initial Assess REASON FOR HOSPITALIZATION:: Acute Exacerbation of COPD due to CAP, resp failure PAST MEDICAL HISTORY/PAST SURGICAL HISTORY:: Pulmonary HTN, mitral and aortic valve stenosis, hyperlipidemia, HTN, dyspnea, DM, CAD, Afib, Adenoma of the tranverse colon, gout, hypothyroid, B12 def, Macrocytosis. Surgical HX: CABG, Antonieta, and knee replacement. PREVIOUS FUNCTIONAL STATUS/SOCIAL/FAMILY SUPPORTS:: Romero resides in [place] with his of fifty-eight years, Francisca. The couple had five daughters and report many grandchildren and great grandchildren. 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 CURRENT FUNCTIONAL STATUS:: Romero is sitting up in bed he continues on humidified oxygen and receiving care in the ICU. His spouse is at his bedside. PT and OT consult today. He is receiving IV antibiotcs and resp support. He is feeling improved today. ADVANCE DIRECTIVES:: On file at [facility] Has patient been provided with information about the portal?: Yes Did the patient sign up for the portal?: No (already enrolled) CODE STATUS:: DNR/DNI INSURANCE COVERAGE / FINANCIAL ISSUES:: Medicare and AARP CURRENT HOME/COMMUNITY SERVICES/EQUIPMENT:: Oxygen through [facility]. PRIMARY CARE PHYSICIAN:: POTENTIAL DISCHARGE NEEDS:: Follow up appointmentn with primary care provider scheduled prior to discharge. CM did discuss admission of patient with [facility] care coordianator at [facility] PATIENT/FAMILY EDUCATION NEEDS:: Discharge education, limitations and follow up plan of care including ask me three education, limitations and self management. ANTICIPATED BARRIERS TO DISCHARGE:: None identified at this time. TRANSPORTATION:: Via private car with spouse at time of discharge. PLAN:: Romero remains an ICU paitent, he is receiving IV antibiotics and resp support. Anticipate he will be discharged home when medically ready resumption of oxygen services through [facility] at time of discharge. CM reviewed admission with [facility] career development manager at [facility]. CM to continue to provide discharge planning and support throughout patients stay.
[2018-02-18] MEDS: Metoprolol 50 MG TAB 100 MG PO ×2 (09:21→20:25)
[2018-02-18] MEDS: Atorvastatin 40 MG TAB PO (09:22)
[2018-02-18] MEDS: Apixaban 2.5 MG TAB PO ×2 (09:23→20:25)
[2018-02-18] MEDS: guaiFENesin 600 MG TABCR PO ×2 (09:23→20:25)
[2018-02-18] MEDS: Cyanocobalamin 500 MCG TAB 1000 MCG PO (09:23)
[2018-02-18] MEDS: Aspirin E.C. 81 MG TABEC PO (09:23)
[2018-02-18] MEDS: Insulin Aspart 300 UNITS/3 ML PEN SC ×3 (09:25→22:26)
--- NOTE | 2018-02-18 09:49 | PHARADMIT ---
Addendum entered by Lata Sullivan 02/24/18 17:33: Pharmacy Note Subjective Objective VS-okay SCr-1.41(up) WBC-16.76(down) BG-56 Assessment ceftriaxone continues (day 8) insulin glargine dose decreased to 45 units QHS furosemide put on hold, gave some IV fluids Plan continue to watch VS, labs(SCr), and for med changes/discontinuation of abx Original Note: Addendum entered by Rick Nowak III 02/19/18 15:35: Pharmacy Note Subjective Sepsis due CAP. Much improved Objective VS-OK SCr-1.16 Lytes -ok WBC-16.1 H&H-OK Plts-112 FS/BG-264/240 Assessment On Apixaban, Azithro & Rocephin cont. Steroids tapering. Plan Transferred to [facility] last night. Original Note: Admission Pharmacy Clinical Review PULMONARY HYPERTENSION, RESP FAILURE Code Status DNR/DNI Current Weight Wgt-95 kg Renally Cleared and Narrow Therapeutic Index Meds CrCl~ 44 mL/min Meds-OK QTc Value / Action Taken QTc-519 (Azithromycin, Lasix) BP Control, Fever BP- 96/59 Tax- 37.2C Electrolytes reviewed Na- 137 K+ 4.4 Mag-2.4 DVT Prophylaxis Eliquis, ASA-ec Opiate Usage / Scheduled Bowel Regimen Ordered No Yes Plt/SCr for Heparin / Enoxaparin Plts-111 SCr-2.34 INR for Warfarin inr-1.2 H/H stable, WBC/Bands H&H- 12.9/39.5 WBC- 20.28 Antibiotic appropriateness AZithromycin, Rocephin, Cultures and Sensitivities Flu-neg, Bloood- no growth/24hr Surgical ABX d/c within 24 hr NA DM control / Insulin Dosing BG- 258, Asaprt, Lantus, Heart Failure (Check EF%) (EMEKA's, B-Block, Diuretics) Lopressor, NTG IV to PO Switch No Home Meds Reviewed Yes Home Meds Not Ordered Norvasc, Lasix, Glipizide, Metformin, Comments
--- NOTE | 2018-02-18 10:11 | PT.INDS ---
Date of service: 02/18/18 Time of Service: 10:11 PT Notes Inpatient Physical Therapy Discharge Summary Date: 02/18/18 Dates of Service: 02/17/18-02/18/18 SUBJECTIVE: NT OBJECTIVE: 02/17/18-02/18/18 Bed Mobility/Transfers: Supine to sit: independent Sit to stand: independent with FWW Stand to sit: independent Bed-chair: independent Sit to supine: Independent Gait: independent 200ft, steady step through gait pattern no loss of balance. 6 liters 02 NC sats 91%, no shortness of breath with exertion. Stairs: up/down 10 steps with railing, independent Balance: Static Sitting: Normal Dynamic Sitting: Normal Static Standing: Fair Dynamic Standing: Fair Assessment: Patient is an 82-year-old male admitted with pneumonia, atrial fibrillation, hypoxia in setting of Restrictive lung disease, pulmonary hypertension, chronic obstructive pulmonary disease, coronary artery disease, mitral and aortic valve stenosis and insufficiency affecting both valves, congestive heart failure, hypertension, atrial fibrillation. Patient was seen for 2 PT visits. Progressed from SBA standing transfers to independent, from SBA gait with FWW marching in place to independent 200ft, able to ascend/descend 10 steps with railing independent. Goals: Goals X1 week 1. Supine-Sit: Independent 2. Sit-Supine: Independent 3. Sit-Stand: Independent 4. Stand-Sit: Independent 5. Bed-Chair: Supervision 6. Chair-Bed: Supervision 7. Gait: Supervision no assistive device 100 feet x2 8. Stairs: Up/down 12 steps with railing, supervision Pt met goals 1-7, 10 steps for # 8 DISCHARGE RECOMMENDATIONS: Home with TREATMENT CODE/TIME: 26 minutes TAx2 10:05 G Codes in the area mobility of walking and moving around projected status GP [id number]. Discharge status (if discharging) GP [id number] CK Kiki Panda PT, CLT
--- NOTE | 2018-02-18 10:15 | INDS_ITS ---
Date of service: 02/18/18 Time of Service: 10:11 PT Notes Inpatient Physical Therapy Discharge Summary Date: 02/18/18 Dates of Service: 02/17/18-02/18/18 SUBJECTIVE: NT OBJECTIVE: 02/17/18-02/18/18 Bed Mobility/Transfers: Supine to sit: independent Sit to stand: independent with FWW Stand to sit: independent Bed-chair: independent Sit to supine: Independent Gait: independent 200ft, steady step through gait pattern no loss of balance. 6 liters 02 NC sats 91%, no shortness of breath with exertion. Stairs: up/down 10 steps with railing, independent Balance: Static Sitting: Normal Dynamic Sitting: Normal Static Standing: Fair Dynamic Standing: Fair Assessment: Patient is an 82-year-old male admitted with pneumonia, atrial fibrillation, hypoxia in setting of Restrictive lung disease, pulmonary hypertension, chronic obstructive pulmonary disease, coronary artery disease, mitral and aortic valve stenosis and insufficiency affecting both valves, congestive heart failure, hypertension, atrial fibrillation. Patient was seen for 2 PT visits. Progressed from SBA standing transfers to in dependent, from SBA gait with FWW marching in place to independent 200ft, able to ascend/descend 10 steps with railing independent. Goals: Goals X1 week 1. Supine-Sit: Independent 2. Sit-Supine: Independent 3. Sit-Stand: Independent 4. Stand-Sit: Independent 5. Bed-Chair: Supervision 6. Chair-Bed: Supervision 7. Gait: Supervision no assistive device 100 feet x2 8. Stairs: Up/down 12 steps with railing, supervision Pt met goals 1-7, 10 steps for # 8 DISCHARGE RECOMMENDATIONS: Home with TREATMENT CODE/TIME: 26 minutes TAx2 10:05 G Codes in the area mobility of walking and moving around projected status GP [id number]. Discharge status (if discharging) GP [id number] CK Kiki Panda PT, CLT
[2018-02-18] MEDS: AZITHROMYCIN 500 MG in Normal Saline 250 ML 250 MG IVPB (10:42)
[2018-02-18 12:45] LABS: Lactate-non-spesis 2.3 mmol/L (0.6-1.4)
[2018-02-18] MEDS: Normal Saline 1,000 ML 75 ML IV (13:01)
--- NOTE | 2018-02-18 13:29 | OTIE_ITS ---
Occupational Therapy Notes Inpatient Occupational Therapy Evaluation Date: 02/18/18 Referring Doctor:Heavenly Bonilla MD OT Orders: Eval and Treat Precautions: Standard PATIENT PROFILE/ADMITTING DIAGNOSIS: Pt is a 82 year old male who was admitted through the ER with pneumonia, atrial fibrillation, hypoxia. 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 Social History/Home Situation: Pt lives in a private home in [place] with his . He reports prior to admission he was (I) with all ADLs/IADLs. Equipment owned/DME: None SUBJECTIVE: Pt was sitting in chair when OT arrived with his in the room. He was agreeable to OT consult. OBJECTIVE: General Observation: Telemetry, BP, IV (B) UE Mental Status: A&Ox3 Pain: no c/o pain ROM: RUE AROM WNL L UE AROM WNL STRENGTH: RUE 5/5 throughout LUE 5/5 throughout FUNCTIONAL MOBILITY/ADLS: Transfers Sit-Stand (I) Stand-sit (I) BATHING Sitting in chair Bathing UE (I) (B) UE, Face, abdomen Bathing LE (I) (B) LE GROOMING Sitting in chair (I) brush teeth BALANCE: Static sitting Normal Dynamic Sitting Normal Static Standing Normal Dynamic Standing Normal SPECIAL TESTS: Daily Activity Limitations Standardized Measure [facility] AM -PAC ?6 clicks? Daily Activity Inpatient Short Form: Raw score: 24 Standardized score: 57.54 CMS score: 0.00% [facility] modifier: CH INFORMED CONSENT/EDUCATION: Pt instructed in purpose of OT Consult and plan of care. 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 Patient was seen for OT consult only, he is at his baseline level of function for ADLs/IADLs and OT recommends that pt return home when medically cleared per MD. AMPAC score 24, CMS score 0.00% Patient is assessed as a Low 18769 complexity based on the following: History: See Above Examination: See Above Presentation: Evolving Decision Making: AMPAC score 24, CMS score 0.00% GOALS N/A PLAN OF CARE/TREATMENT PLAN: OT consult only DISCHARGE RECOMMENDATIONS Home when medically cleared per MD TREATMENT TIME/MINUTES/CODES IE 35 minutes, Self carex1 (10:30) G Codes in the area of self- : washing oneself, toileting, dressing, eating and drinking, current status GO [id number] CH projected status GO [id number]. Discharge status (if discharging) GO [id number] based on AMPAC score. Hui Anderson, OTR/L [facility]
--- NOTE | 2018-02-18 13:43 | DI.RAD_ITS ---
SYMPTOMS/DIAGNOSIS: F/U PNEUMONIA, ACUTE EXACERBATION OF COPD CHEST X-RAY, FRONTAL AND LATERAL VIEWS: Comparison is 02/17/18. There is poor inspiration. The heart size and pulmonary vasculature are stable. Sternal wires are in place. There are bilateral perihilar infiltrates. The left infiltrate appears new. There has been some improvement in the right perihilar pneumonia. No effusions or pneumothoraces are identified. IMPRESSION: Bilateral perihilar infiltrates, right greater than left. The left infiltrate appears new. The right infiltrate appears somewhat improved in appearance.
--- NOTE | 2018-02-18 15:27 | CHAPLAIN ---
Romero was sitting up in his chair visiting with his when I stopped in. He is very pleasant and easily engaged in conversation. He talked about having a very difficult time breathing on Friday night and then coming to the ER on Friday, and now feeling much better. His said this is his annual bout with pneumonia. Romero is part of a group of men who meet every morning for breakfast and conversation at the [facility]. They have met for many years, and support each other through challenges with health issues and family concerns (two members wives in the past year or so). One member of the group offered to come visit Romero, but he suggested his friend not come into the hospital during flu season.
--- NOTE | 2018-02-18 20:06 | PGE_ITS ---
Date of Service Date of service: 02/18/18 Time of Service: 14:15 Assessment and Plan (1) Sepsis: Current visit: Yes Status: Acute Due to CAP. Impending shock on presentation, luckily responded to fluids. Continue azithromycin/rocephin. Blood cultures are with NGTD. Patient is unable to produce a sputum sample. Start to decrease steroids. Clinically much improved. Transfer out of ICU. (2) CAP (community acquired pneumonia): Current visit: Yes Status: Acute As above (3) Acute and chronic respiratory failure with hypoxia: Current visit: Yes Status: Acute Improved significantly. Continue to wean O2 as tolerated. Tx as above. (4) Chronic atrial fibrillation: Current visit: No Status: Chronic with RVR on initial presentation, treated with beta blockers, now rate controlled. Continue home beta blockers. (5) Hypomagnesemia: Current visit: Yes Status: Resolved COntinue to monitor (6) Pulmonary hypertension: Current visit: No Status: Acute Follows with pulmonary and [facility] pulmonary hypertension clinic. Volume control essential. Monitor I/O's and daily weights. (7) Restrictive lung disease: Current visit: No Status: Acute Does seem to have a response to bronchodilators - continue nebs. (8) Type 2 diabetes mellitus with hyperglycemia: Current visit: No Status: Acute with steroid induced hyperglycemia. Increase lantus; continue corrective scale. 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 (10) Essential hypertension: Current visit: No Status: Chronic Continue to hold norvasc. Continue BB. (11) Coronary artery disease involving mechoopda coronary artery of mechoopda heart without angina pectoris: Current visit: No Status: Chronic No evidence of ACS. Continue home therapy. (12) JOSE (acute kidney injury): Current visit: Yes Status: Acute Improved. Continue to monitor off IVF. (13) Discharge planning issues: Current visit: Yes Status: Acute Patient states he is DNR/DNI and that he has forms on file here and at [facility]. (14) DVT prophylaxis: Current visit: Yes Status: Acute On therapeutic eliquis Subjective Interval history since last seen: Doing much better today. His is really impressed. Weaned to regular nasal canula from humidified high flow. Denies dizziness, chest pain. States shortness of breath and cough are much better. Cough is not productive. Denies nausea, vomiting. Exam Narrative Exam Narrative: General: Very pleasant elderly male, sitting up in a chair, conversant Neurological: A&Ox3, hard of hearing, no focal deficits Psychiatric: appropriate speech pattern/content Skin: chronic venous stasis dermatitis HEENT: EOMI, MMM, no JVD Cardiovascular: Irregularly irregular rhythm, + ASHISH Lungs: crackles at B bases; overall much improved Gastrointestinal: abdomen soft, nontender, nondistended Extremities: trace edema BLE's, no clubbing/cyanosis Objective Objective Clinical Data: Abnormal lab results 02/17/18 02/18/18 02/18/18 Range/Units 22:10 06:18 06:18 WBC 20.28 H (4.4-10.8) k/cumm RBC 4.26 L (4.50-6.00) m/cumm Hgb 12.9 L D (13.5-17.5) g/dL Hct 39.5 L D (40.0-50.0) % RDW 15.3 H (11.8-14.1) % Plt Count 111 L (130-400) x1000/uL MPV 13.2 H (8.0-11.0) fL Absolute Neutrophils 18.45 H (1.2-6.7) k/cumm Absolute Lymphocytes 0.79 L (1.2-3.4) k/cumm Absolute Monocytes 0.95 H (0.11-0.7) k/cumm BUN 32 H (7-18) mg/dL Creatinine 1.34 H (0.70-1.30) mg/dL Glucose 258 H (70-100) mg/dL Lactate 3.1 H (0.6-1.4) mmol/L Calcium 8.4 L (8.5-10.1) mg/dL 02/18/18 Range/Units 12:35 WBC (4.4-10.8) k/cumm RBC (4.50-6.00) m/cumm Hgb (13.5-17.5) g/dL Hct (40.0-50.0) % RDW (11.8-14.1) % Plt Count (130-400) x1000/uL MPV (8.0-11.0) fL Absolute Neutrophils (1.2-6.7) k/cumm Absolute Lymphocytes (1.2-3.4) k/cumm Absolute Monocytes (0.11-0.7) k/cumm BUN (7-18) mg/dL Creatinine (0.70-1.30) mg/dL Glucose (70-100) mg/dL Lactate 2.3 H (0.6-1.4) mmol/L Calcium (8.5-10.1) mg/dL Vital Signs Temperature 36.1 C L 02/18/18 16:06 Temperature Source Temporal Artery Scan 02/18/18 16:06 Pulse 61 02/18/18 16:06 Pulse 81 02/18/18 18:30 Respiratory Rate 22 02/18/18 18:30 Respiratory Effort 02/18/18 16:06 Respiratory Depth Normal 02/18/18 16:06 Respiratory Pattern Normal 02/18/18 16:06 Blood Pressure 121/73 02/18/18 16:06 Blood Pressure Mean 89 02/18/18 16:06 Blood Pressure Position Sitting 02/18/18 16:06 Pulse Oximetry 92 L 02/18/18 18:30 Oxygen Delivery Method Nasal Cannula 02/18/18 16:06 Oxygen Flow Rate 3 02/18/18 16:06 Fraction of Inspired Oxygen (FIO2) 45 02/18/18 08:44 Pain Level 0 02/18/18 16:06 Comment temp 34C 02/17/18 12:57 Intake & Output 02/17/18 02/18/18 02/18/18 23:59 11:59 23:59 Intake Total 620 / 1670 710 / 1510 800 / 1510 Output Total 200 / 200 965 / 1365 400 / 1365 Balance 420 / 1470 -255 / 145 400 / 145 Weight 97.5 kg 95 kg Intake: IV 370 / 1420 70 / 330 260 / 330 Oral 250 / 250 640 / 1180 540 / 1180 Output: Urine 200 / 200 965 / 1365 400 / 1365 Other: Urine Color Yellow Dark Louise Light Louise Urine Appearance Cloudy Cloudy Clear Urine Odor Strong None None Comment Pt states that he went in ER right before coming back up Voided 140 cc of dark louise urine. trace protein, pH of 5 and SG of 1.030 Voids in small amts of dark louise urine. Voided 100 cc at this time. Voiding Methods Urinal Urinal Urinal Laboratory Results WBC 20.28 k/cumm (4.4-10.8) H 02/18/18 06:18 RBC 4.26 m/cumm (4.50-6.00) L 02/18/18 06:18 Hgb 12.9 g/dL (13.5-17.5) L D 02/18/18 06:18 Hct 39.5 % (40.0-50.0) L D 02/18/18 06:18 MCV 92.7 fL (80-95) 02/18/18 06:18 MCH 30.3 pg (27.0-33.0) 02/18/18 06:18 MCHC 32.7 g/dL (32.0-36.0) 02/18/18 06:18 RDW 15.3 % (11.8-14.1) H 02/18/18 06:18 Plt Count 111 x1000/uL (130-400) L 02/18/18 06:18 MPV 13.2 fL (8.0-11.0) H 02/18/18 06:18 Immature Gran % 0.4 02/18/18 06:18 Neutrophils % 91.0 02/18/18 06:18 Lymphocytes % 3.9 02/18/18 06:18 Monocytes % 4.7 02/18/18 06:18 Eosinophils % 0.0 02/18/18 06:18 Basophils % 0.0 02/18/18 06:18 Absolute Neutrophils 18.45 k/cumm (1.2-6.7) H 02/18/18 06:18 Absolute Lymphocytes 0.79 k/cumm (1.2-3.4) L 02/18/18 06:18 Absolute Monocytes 0.95 k/cumm (0.11-0.7) H 02/18/18 06:18 Absolute Eosinophils 0.00 k/cumm (0.0-0.7) 02/18/18 06:18 Absolute Basophils 0.00 k/cumm (0.0-0.2) 02/18/18 06:18 PT 12.1 sec (9.3-11.0) H 02/17/18 06:40 INR 1.2 (0.9-1.1) H 02/17/18 06:40 APTT 22.6 sec (21.0-31.4) 02/17/18 06:40 Sample Site Right radial 02/17/18 09:42 pCO2 35 mmHg (34-47) 02/17/18 09:42 pO2 144 mmHg (83-108) H 02/17/18 09:42 O2 Saturation 99 % (94-98) H 02/17/18 09:42 ABG pH 7.39 (7.35-7.45) 02/17/18 09:42 ABG HCO3 21 mmol/L (22-28) L 02/17/18 09:42 ABG Total CO2 18 mmol/L (22-29) L 02/17/18 09:42 ABG Base Excess -4.4 mmol/L (-3-3) L 02/17/18 09:42 Oxygen Liter Flow Bipap 12/5 L 02/17/18 09:42 FiO2 100% % 02/17/18 09:42 Sodium 137 mmol/L (136-145) 02/18/18 06:18 Potassium 4.4 mmol/L (3.5-5.1) 02/18/18 06:18 Chloride 103 mmol/L (98-107) 02/18/18 06:18 Carbon Dioxide 24.8 mmol/L (21.0-32.0) 02/18/18 06:18 Anion Gap 9.2 mmol/L (3-11) 02/18/18 06:18 BUN 32 mg/dL (7-18) H 02/18/18 06:18 Creatinine 1.34 mg/dL (0.70-1.30) H 02/18/18 06:18 Estimated GFR/1.73 m2 51.16 (mL/min/1.73m2) 02/18/18 06:18 Glucose 258 mg/dL (70-100) H 02/18/18 06:18 Lactate 2.3 mmol/L (0.6-1.4) H 02/18/18 12:35 Calcium 8.4 mg/dL (8.5-10.1) L 02/18/18 06:18 Magnesium 2.4 mg/dL (1.8-2.4) 02/18/18 06:18 Total Bilirubin 0.8 mg/dL (0.2-1.0) 02/17/18 06:40 AST 15 U/L (15-37) 02/17/18 06:40 ALT 25 U/L (12-78) 02/17/18 06:40 Alkaline Phosphatase 82 U/L (46-116) 02/17/18 06:40 Troponin I 0.06 ng/mL (0.00-0.06) 02/17/18 06:40 NT-Pro-B Natriuret Pep 2393 pg/mL (-299) H 02/17/18 06:40 Total Protein 6.4 g/dL (6.4-8.2) 02/17/18 06:40 Albumin 3.4 g/dL (3.4-5.0) 02/17/18 06:40 Urine Color Louise (Yellow) 02/17/18 11:45 Urine Clarity Clear 02/17/18 11:45 Urine pH 5.5 (5-8) 02/17/18 11:45 Ur Specific [place] >= 1.030 (1.005-1.025) H 02/17/18 11:45 Urine Protein Trace mg/dL (Negative) H 02/17/18 11:45 Urine Ketones Trace mg/dL (Negative) H 02/17/18 11:45 Urine Blood Negative (Negative) 02/17/18 11:45 Urine Nitrite Negative (Negative) 02/17/18 11:45 Urine Bilirubin Negative (Negative) 02/17/18 11:45 Urine Urobilinogen 1.0 EU/dL (Up TO 0.2) H 02/17/18 11:45 Ur Leukocyte Esterase Negative (Negative) 02/17/18 11:45 Urine RBC Negative (0-2) 02/17/18 11:45 Urine WBC 0-2 HPF (0-5) 02/17/18 11:45 Ur Epithelial Cells Rare HPF (Negative) 02/17/18 11:45 Urine Crystals Mod calcium oxalate HPF (Negative) 02/17/18 11:45 Urine Bacteria Few HPF (Negative) 02/17/18 11:45 Urine Casts 3-5 hyaline LPF (Negative) 02/17/18 11:45 Urine Mucus Moderate (Negative) 02/17/18 11:45 Ur Culture Indicated? No 02/17/18 11:45 Urine Glucose Negative mg/dL (Negative) 01/08/19 11:45 CXR: bilateral perihilar infiltrates, R>L. The left infiltrate appears new. The right infiltrate appears somewhat improved in appearance.
[2018-02-18] MEDS: Insulin Glargine 300 UNITS/3 ML PEN 45 UNITS SC (22:27)
[2018-02-19] VITALS (12 sets, daily range): BP systolic 122–144; BP diastolic 72–89; PULSE 50–89; RESP 1–24; TEMP 35.7–36.4; O2SAT 87–99
[2018-02-19] MEDS: methylPREDNISolone SUCC 125 MG VIAL 60 MG IVP ×3 (01:37→17:51)
[2018-02-19] MEDS: Normal Saline Flush 10 ML SYR IVP ×4 (01:38→21:11)
[2018-02-19] MEDS: Levothyroxine 75 MCG TAB PO (05:22)
[2018-02-19] MEDS: Albuterol/Ipratropium 3 ML UPD VIAL UPD ×3 (05:22→18:05)
[2018-02-19 07:40] LABS: Lactate-non-spesis 2.1 mmol/L (0.6-1.4)
[2018-02-19 07:54] LABS: Anion Gap 9.8 mmol/L (3-11); BUN 30 mg/dL (7-18); CO2 25.2 mmol/L (21.0-32.0); CREATININE 1.16 mg/dL (0.70-1.30); Calcium 8.6 mg/dL (8.5-10.1); Chloride 105 mmol/L (98-107); Glucose 240 mg/dL (70-100); Magnesium 2.1 mg/dL (1.8-2.4); Potassium 4.7 mmol/L (3.5-5.1); Sodium 140 mmol/L (136-145)
[2018-02-19 07:57] LABS: Abs Immature Grans 0.09 k/cumm (0.0-0.09); Absolute Lymphocyte Count 0.58 k/cumm (1.2-3.4); Absolute Monocyte Count 0.71 k/cumm (0.11-0.7); Absolute Neutrophil Count 14.73 k/cumm (1.2-6.7); HCT 38.6 % (40.0-50.0); HGB 12.5 g/dL (13.5-17.5); Immature Grans % 0.6; Lymphocytes % 3.6; Mean Corp. HGB Concentration 32.4 g/dL (32.0-36.0); Mean Corpuscular Hemoglobin 30.3 pg (27.0-33.0); Mean Corpuscular Volume 93.5 fL (80-95); Mean Platelet Volume 12.7 fL (8.0-11.0); Monocytes % 4.4; Neutrophils % 91.4; Platelet Count 112 x1000/uL (130-400); RBC 4.13 m/cumm (4.50-6.00); RBC Distribution Width 15.2 % (11.8-14.1); White Blood Cell Count 16.12 k/cumm (4.4-10.8)
[2018-02-19] MEDS: Apixaban 2.5 MG TAB PO ×2 (08:02→21:12)
[2018-02-19] MEDS: Cyanocobalamin 500 MCG TAB 1000 MCG PO (08:02)
[2018-02-19] MEDS: guaiFENesin 600 MG TABCR PO ×2 (08:02→21:12)
[2018-02-19] MEDS: Metoprolol 50 MG TAB 100 MG PO ×2 (08:02→21:12)
[2018-02-19] MEDS: Atorvastatin 40 MG TAB PO (08:03)
[2018-02-19] MEDS: Aspirin E.C. 81 MG TABEC PO (08:03)
[2018-02-19] MEDS: Insulin Aspart 300 UNITS/3 ML PEN SC ×4 (08:10→21:14)
[2018-02-19] MEDS: Budesonide/Formoterol 160/4.5 6 GM 60 PUFF INH IH ×2 (10:10→21:11)
[2018-02-19] MEDS: AZITHROMYCIN 500 MG in Normal Saline 250 ML 250 MG IVPB (10:43)
[2018-02-19] MEDS: Insulin Aspart 300 UNITS/3 ML PEN 7 UNITS SC ×2 (12:17→17:01)
[2018-02-19] MEDS: Furosemide 20 MG/2 ML VIAL IVP (16:23)
--- NOTE | 2018-02-19 17:04 | PDOC.CMPRO ---
- If Service Date Differs Date of service: 02/19/18 Time of Service: 17:04 Care Management Progress Note S/O: CM met with Valeriy at [facility] today he is cheerful and engaged with assessment. He states he is hopeful he will be discharged on Friday. CM reviewed supports with Valeriy including his family. Discussed oxygen demand he states he does not wear it out of the home. CM reviewed options that may be available if he did need oxygen during the day including portable equipment Discusses pacing himself when he is short of breath. Valeriy reports that he does rest with activity and feels he is able to balance his activity with periods of resting. He is participating in pulmonary rehab and enjoys that. A: Romero is a 82 year old male admitted with COPD exacerbation. P: Romero is receiving IV antibiotics and resp support. Anticipate he will be discharged home when medically ready resumption of pulmonary rehab and oxygen services through [facility] at time of discharge. CM reviewed admission with chonic care specialist at [facility]. CM to continue to provide discharge planning and support throughout patients stay.
--- NOTE | 2018-02-19 17:29 | CMPROGNOTE_ITS ---
- If Service Date Differs Date of service: 02/19/18 Time of Service: 17:04 Care Management Progress Note S/O: CM met with Valeriy at [facility] today he is cheerful and engaged with assessment. He states he is hopeful he will be discharged on Friday. CM reviewed supports with Valeriy including his family. Discussed oxygen demand he states he does not wear it out of the home. CM reviewed options that may be available if he did need oxygen during the day including portable equipment Discusses pacing himself when he is short of breath. Valeriy reports that he does rest with activity and feels he is able to balance his activity with periods of resting. He is participating in pulmonary rehab and enjoys that. A: Romero is a 82 year old male admitted with COPD exacerbation. P: Romero is receiving IV antibiotics and resp support. Anticipate he will be discharged home when medically ready resumption of pulmonary rehab and oxygen services through [facility] at time of discharge. CM reviewed admission with chonic career services coordinator at [place]. CM to continue to provide discharge planning and support throughout patients stay.
--- NOTE | 2018-02-19 18:13 | W.INDIABCONS ---
Date of service: 02/19/18 Time of Service: 18:13 Diabetes Inpatient Consult DESCRIPTION/ASSESSMENT: Appreciate diabetes consult for Mr. Peoples who is hospitalized for sepsis. He is currently on Prednisone 60mg q8 hours causing steroid induced hyperglycemia in type 2 diabetes. A1c 6.7 indicating excellent glycemic control taking 37u Basaglar, Metformin and Glipizide. Blood sugars here consistently in 200s despite an increase in his basal insulin dose to 45 now at 55 units and the addition of mealtime insulin for food in addition to insulin correction. He is known to outpatient DSME in the distant past. INTERVENTION: Given that his insulin is being adjusted, will watch blood sugars. Given his age and A1c, intervention for self management is not warranted at this time. PLAN: Will follow blood sugars and prednisone dosing. Time Spent in Nutritional Counseling and Treatment: inpatient; not visited
--- NOTE | 2018-02-19 19:01 | W.PM.PROGNOT ---
Date of Service Date of service: 02/19/18 Time of Service: 16:00 Assessment and Plan (1) Sepsis: Current visit: Yes Status: Acute Due to CAP. Impending shock on presentation, fluid responsive. Continue azithromycin/rocephin. Blood cultures are with NGTD. Continue steroid taper. Clinically improving steadily. (2) CAP (community acquired pneumonia): Current visit: Yes Status: Acute As above (3) Acute and chronic respiratory failure with hypoxia: Current visit: Yes Status: Acute Improved significantly. Continue to wean O2 as tolerated. Work with PT, evaluate ambulatory pulse ox. (4) Chronic atrial fibrillation: Current visit: No Status: Chronic with RVR on initial presentation, treated with beta blockers, now rate controlled. Continue home beta blockers. (5) Hypomagnesemia: Current visit: Yes Status: Resolved Continue to monitor (6) Pulmonary hypertension: Current visit: No Status: Acute [place]s with pulmonary [place] [facility] [place]. Volume control essential. Monitor I/O's and daily weights. Resume lasix (7) Restrictive lung disease: Current visit: No Status: Acute Does seem to have a response to bronchodilators - continue nebs. (8) Type 2 diabetes mellitus with hyperglycemia: Current visit: No Status: Acute with steroid induced hyperglycemia. Increase lantus yet again; continue corrective scale. 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 (10) Essential hypertension: Current visit: No Status: Chronic Continue to hold norvasc. Continue BB. (11) Coronary artery disease involving [place] coronary artery of [place] heart without angina pectoris: Current visit: No Status: Chronic No evidence of ACS. Continue home therapy. (12) JOSE (acute kidney injury): Current visit: Yes Status: Acute Improved. Continue to monitor off IVF. Resume lasix. (13) Discharge planning issues: Current visit: Yes Status: Acute Patient states he is DNR/DNI and that he has forms on file here [place] [facility] (14) DVT prophylaxis: Current visit: Yes Status: Acute On therapeutic eliquis Subjective Interval history since last seen: States he feels much better today. Denies dizziness, chest pain, shortness of breath while laying flat, nausea, vomiting. Exam Narrative Exam Narrative: General: Very pleasant elderly male, laying flat in bed, comfortable Neurological: A&Ox3, hard of hearing, no focal deficits Psychiatric: appropriate speech pattern/content Skin: chronic venous stasis dermatitis HEENT: EOMI, MMM, no JVD Cardiovascular: Irregularly irregular rhythm, + ASHISH Lungs: crackles at B bases; overall much improved Gastrointestinal: abdomen soft, nontender, nondistended Extremities: +1 edema BLE's, no clubbing/cyanosis Objective Objective Clinical Data: Abnormal lab results 02/19/18 02/19/18 02/19/18 Range/Units 07:30 07:30 07:30 WBC 16.12 H (4.4-10.8) k/cumm RBC 4.13 L (4.50-6.00) m/cumm Hgb 12.5 L (13.5-17.5) g/dL Hct 38.6 L (40.0-50.0) % RDW 15.2 H (11.8-14.1) % Plt Count 112 L (130-400) x1000/uL MPV 12.7 H (8.0-11.0) fL Absolute Neutrophils 14.73 H (1.2-6.7) k/cumm Absolute Lymphocytes 0.58 L (1.2-3.4) k/cumm Absolute Monocytes 0.71 H (0.11-0.7) k/cumm BUN 30 H (7-18) mg/dL Glucose 240 H (70-100) mg/dL Lactate 2.1 H (0.6-1.4) mmol/L Vital Signs Temperature 36.4 C L 02/19/18 16:20 Temperature Source Tympanic 02/19/18 16:20 Pulse 74 02/19/18 16:20 Pulse Rhythm Irregular 02/19/18 08:26 Pulse 81 02/18/18 18:30 Respiratory Rate 20 02/19/18 16:20 Respiratory Effort Non-Labored 02/19/18 16:00 Respiratory Depth Normal 02/19/18 16:00 Respiratory Pattern Normal 02/19/18 16:00 Blood Pressure 137/88 02/19/18 16:20 Blood Pressure Mean 91 02/18/18 19:25 Blood Pressure Position Supine 02/18/18 19:25 Pulse Oximetry 92 L 02/19/18 16:20 Oxygen Delivery Method Nasal Cannula 02/19/18 16:20 Oxygen Flow Rate 3 02/19/18 16:20 Fraction of Inspired Oxygen (FIO2) 45 02/18/18 08:44 Pain Level 0 02/18/18 21:38 Comment temp 34C 02/17/18 12:57 Intake & Output 02/18/18 02/19/18 02/19/18 23:59 11:59 23:59 Intake Total 1473.75 / 2183.75 1166.25 / 1526.25 360 / 1526.25 Output Total 575 / 1540 650 / 850 200 / 850 Balance 898.75 / 643.75 516.25 / 676.25 160 / 676.25 Weight 93.5 kg Intake: IV 933.75 / 1003.75 626.25 / 626.25 Oral 540 / 1180 540 / 900 360 / 900 Output: Urine 575 / 1540 650 / 850 200 / 850 Other: Urine Color Light Louise Yellow Yellow Urine Appearance Clear Clear Urine Odor None Comment Voids in small amts of dark louise urine. Voided 175 cc at this time. Voiding Methods Urinal Urinal Urinal Laboratory Results WBC 16.12 k/cumm (4.4-10.8) H 02/19/18 07:30 RBC 4.13 m/cumm (4.50-6.00) L 02/19/18 07:30 Hgb 12.5 g/dL (13.5-17.5) L 02/19/18 07:30 Hct 38.6 % (40.0-50.0) L 02/19/18 07:30 MCV 93.5 fL (80-95) 02/19/18 07:30 MCH 30.3 pg (27.0-33.0) 02/19/18 07:30 MCHC 32.4 g/dL (32.0-36.0) 02/19/18 07:30 RDW 15.2 % (11.8-14.1) H 02/19/18 07:30 Plt Count 112 x1000/uL (130-400) L 02/19/18 07:30 MPV 12.7 fL (8.0-11.0) H 02/19/18 07:30 Immature Gran % 0.6 02/19/18 07:30 Neutrophils % 91.4 02/19/18 07:30 Lymphocytes % 3.6 02/19/18 07:30 Monocytes % 4.4 02/19/18 07:30 Eosinophils % 0.0 02/19/18 07:30 Basophils % 0.0 02/19/18 07:30 Absolute Neutrophils 14.73 k/cumm (1.2-6.7) H 02/19/18 07:30 Absolute Lymphocytes 0.58 k/cumm (1.2-3.4) L 02/19/18 07:30 Absolute Monocytes 0.71 k/cumm (0.11-0.7) H 02/19/18 07:30 Absolute Eosinophils 0.00 k/cumm (0.0-0.7) 02/19/18 07:30 Absolute Basophils 0.00 k/cumm (0.0-0.2) 02/19/18 07:30 PT 12.1 sec (9.3-11.0) H 02/17/18 06:40 INR 1.2 (0.9-1.1) H 02/17/18 06:40 APTT 22.6 sec (21.0-31.4) 02/17/18 06:40 Sample Site Right radial 02/17/18 09:42 pCO2 35 mmHg (34-47) 02/17/18 09:42 pO2 144 mmHg (83-108) H 02/17/18 09:42 O2 Saturation 99 % (94-98) H 02/17/18 09:42 ABG pH 7.39 (7.35-7.45) 02/17/18 09:42 ABG HCO3 21 mmol/L (22-28) L 02/17/18 09:42 ABG Total CO2 18 mmol/L (22-29) L 02/17/18 09:42 ABG Base Excess -4.4 mmol/L (-3-3) L 02/17/18 09:42 Oxygen Liter Flow Bipap 12/5 L 02/17/18 09:42 FiO2 100% % 02/17/18 09:42 Sodium 140 mmol/L (136-145) 02/19/18 07:30 Potassium 4.7 mmol/L (3.5-5.1) 02/19/18 07:30 Chloride 105 mmol/L (98-107) 02/19/18 07:30 Carbon Dioxide 25.2 mmol/L (21.0-32.0) 02/19/18 07:30 Anion Gap 9.8 mmol/L (3-11) 02/19/18 07:30 BUN 30 mg/dL (7-18) H 02/19/18 07:30 Creatinine 1.16 mg/dL (0.70-1.30) 02/19/18 07:30 Estimated GFR/1.73 m2 >= 60.00 (mL/min/1.73m2) 02/19/18 07:30 Glucose 240 mg/dL (70-100) H 02/19/18 07:30 Lactate 2.1 mmol/L (0.6-1.4) H 02/19/18 07:30 Calcium 8.6 mg/dL (8.5-10.1) 02/19/18 07:30 Magnesium 2.1 mg/dL (1.8-2.4) 02/19/18 07:30 Total Bilirubin 0.8 mg/dL (0.2-1.0) 02/17/18 06:40 AST 15 U/L (15-37) 02/17/18 06:40 ALT 25 U/L (12-78) 02/17/18 06:40 Alkaline Phosphatase 82 U/L (46-116) 02/17/18 06:40 Troponin I 0.06 ng/mL (0.00-0.06) 02/17/18 06:40 NT-Pro-B Natriuret Pep 2393 pg/mL (-299) H 02/17/18 06:40 Total Protein 6.4 g/dL (6.4-8.2) 02/17/18 06:40 Albumin 3.4 g/dL (3.4-5.0) 02/17/18 06:40 Urine Color Louise (Yellow) 02/17/18 11:45 Urine Clarity Clear 02/17/18 11:45 Urine pH 5.5 (5-8) 02/17/18 11:45 Ur Specific [place] >= 1.030 (1.005-1.025) H 02/17/18 11:45 Urine Protein Trace mg/dL (Negative) H 02/17/18 11:45 Urine Ketones Trace mg/dL (Negative) H 02/17/18 11:45 Urine Blood Negative (Negative) 02/17/18 11:45 Urine Nitrite Negative (Negative) 02/17/18 11:45 Urine Bilirubin Negative (Negative) 02/17/18 11:45 Urine Urobilinogen 1.0 EU/dL (Up TO 0.2) H 02/17/18 11:45 Ur Leukocyte Esterase Negative (Negative) 02/17/18 11:45 Urine RBC Negative (0-2) 02/17/18 11:45 Urine WBC 0-2 HPF (0-5) 02/17/18 11:45 Ur Epithelial Cells Rare HPF (Negative) 02/17/18 11:45 Urine Crystals Mod calcium oxalate HPF (Negative) 02/17/18 11:45 Urine Bacteria Few HPF (Negative) 02/17/18 11:45 Urine Casts 3-5 hyaline LPF (Negative) 02/17/18 11:45 Urine Mucus Moderate (Negative) 02/17/18 11:45 Ur Culture Indicated? No 02/17/18 11:45 Urine Glucose Negative mg/dL (Negative) 02/17/18 11:45
[2018-02-19] MEDS: Insulin Glargine 300 UNITS/3 ML PEN 55 UNITS SC (21:15)
[2018-02-20] VITALS (8 sets, daily range): BP systolic 102–148; BP diastolic 67–99; PULSE 55–76; RESP 2–22; TEMP 36.3–37.5; O2SAT 92–97
[2018-02-20] MEDS: Albuterol/Ipratropium 3 ML UPD VIAL UPD ×4 (01:45→19:12)
[2018-02-20] MEDS: methylPREDNISolone SUCC 125 MG VIAL 40 MG IVP ×3 (01:46→20:22)
[2018-02-20] MEDS: Normal Saline Flush 10 ML SYR IVP ×4 (01:46→19:51)
[2018-02-20] MEDS: Levothyroxine 75 MCG TAB PO (06:26)
[2018-02-20 07:31] LABS: Abs Immature Grans 0.05 k/cumm (0.0-0.09); Absolute Monocyte Count 0.48 k/cumm (0.11-0.7); Absolute Neutrophil Count 13.67 k/cumm (1.2-6.7); HCT 40.2 % (40.0-50.0); HGB 12.9 g/dL (13.5-17.5); Immature Grans % 0.3; Lymphocytes % 4.8; Mean Corp. HGB Concentration 32.1 g/dL (32.0-36.0); Mean Corpuscular Hemoglobin 29.7 pg (27.0-33.0); Mean Corpuscular Volume 92.6 fL (80-95); Mean Platelet Volume 12.6 fL (8.0-11.0); Monocytes % 3.2; Neutrophils % 91.7; Platelet Count 131 x1000/uL (130-400); RBC 4.34 m/cumm (4.50-6.00); RBC Distribution Width 15.1 % (11.8-14.1); White Blood Cell Count 14.91 k/cumm (4.4-10.8)
[2018-02-20 07:34] LABS: Absolute Lymphocyte Count 0.72 k/cumm (1.2-3.4)
[2018-02-20 07:41] LABS: Anion Gap 7.5 mmol/L (3-11); BUN 33 mg/dL (7-18); CO2 27.5 mmol/L (21.0-32.0); CREATININE 1.27 mg/dL (0.70-1.30); Calcium 9.1 mg/dL (8.5-10.1); Chloride 105 mmol/L (98-107); Estimated GFR 54.43 (mL/min/1.73m2); Glucose 171 mg/dL (70-100); Magnesium 2.2 mg/dL (1.8-2.4); Potassium 5.1 mmol/L (3.5-5.1); Sodium 140 mmol/L (136-145)
[2018-02-20] MEDS: guaiFENesin 600 MG TABCR PO ×2 (09:04→19:18)
[2018-02-20] MEDS: Metoprolol 50 MG TAB 100 MG PO ×2 (09:04→19:17)
[2018-02-20] MEDS: Aspirin E.C. 81 MG TABEC PO (09:04)
[2018-02-20] MEDS: Atorvastatin 40 MG TAB PO (09:04)
[2018-02-20] MEDS: Cyanocobalamin 500 MCG TAB 1000 MCG PO (09:04)
[2018-02-20] MEDS: Furosemide 20 MG/2 ML VIAL IVP (09:04)
[2018-02-20] MEDS: Apixaban 2.5 MG TAB PO ×2 (09:05→19:18)
[2018-02-20] MEDS: Insulin Aspart 300 UNITS/3 ML PEN SC ×4 (09:24→21:39)
[2018-02-20] MEDS: Insulin Aspart 300 UNITS/3 ML PEN 7 UNITS SC ×3 (09:24→17:22)
[2018-02-20] MEDS: AZITHROMYCIN 500 MG in Normal Saline 250 ML 250 MG IVPB (11:03)
[2018-02-20] MEDS: Budesonide/Formoterol 160/4.5 6 GM 60 PUFF INH IH (19:18)
--- NOTE | 2018-02-20 20:29 | PGE_ITS ---
Date of Service Date of service: 02/20/18 Time of Service: 18:20 Assessment and Plan (1) Sepsis: Current visit: Yes Status: Acute Due to CAP. Impending shock on presentation, fluid responsive. Continue azithromycin/rocephin. Blood cultures are with NGTD. Transition steroids to PO Clinically improving steadily. (2) CAP (community acquired pneumonia): Current visit: Yes Status: Acute As above (3) Acute and chronic respiratory failure with hypoxia: Current visit: Yes Status: Acute Improved significantly. Continue to wean O2 as tolerated. The patient may require O2 during the day as well, as previously suspected. (4) Chronic atrial fibrillation: Current visit: No Status: Chronic with RVR on initial presentation, treated with beta blockers, now rate controlled. Continue home beta blockers. (5) Hypomagnesemia: Current visit: Yes Status: Resolved Continue to monitor (6) Pulmonary hypertension: Current visit: No Status: Acute Follows with pulmonary and [facility] [place] pulmonary hypertension clinic. Volume control essential. Monitor I/O's and daily weights. Increase lasix (patient would like the increased dose to start tomorrow) (7) Restrictive lung disease: Current visit: No Status: Acute Does seem to have a response to bronchodilators - continue nebs. Follows with outpatient pulmonary. (8) Type 2 diabetes mellitus with hyperglycemia: Current visit: No Status: Acute with steroid induced hyperglycemia. Continue basal bolus insulin at current doses. 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 (10) Essential hypertension: Current visit: No Status: Chronic Continue to hold norvasc. Continue BB. (11) Coronary artery disease involving [place] coronary artery of [place] heart without angina pectoris: Current visit: No Status: Chronic No evidence of ACS. Continue home therapy. (12) JOSE (acute kidney injury): Current visit: Yes Status: Acute Improved. Monitor Cr now that lasix is being increased. (13) Discharge planning issues: Current visit: Yes Status: Acute Patient states he is DNR/DNI and that he has forms on file here and at [facility] [place]. (14) DVT prophylaxis: Current visit: Yes Status: Acute On therapeutic eliquis Subjective Interval history since last seen: Patient states he is feeling better every day. He denies dizziness, cough, chest pain, shortness of breath, nausea, vomiting. Exam Narrative Exam Narrative: General: Very pleasant elderly male, laying flat in bed, very minimally tachypneic HEENT: EOMI, MMM Cardiovascular: Irregularly irregular rhythm, + ASHISH Lungs: crackles at B bases; good aeration B Gastrointestinal: abdomen soft, nontender, nondistended Extremities: +1 edema BLE's, no clubbing/cyanosis Objective Objective Clinical Data: Abnormal lab results 02/20/18 02/20/18 Range/Units 06:50 06:50 WBC 14.91 H (4.4-10.8) k/cumm RBC 4.34 L (4.50-6.00) m/cumm Hgb 12.9 L (13.5-17.5) g/dL RDW 15.1 H (11.8-14.1) % MPV 12.6 H (8.0-11.0) fL Absolute Neutrophils 13.67 H (1.2-6.7) k/cumm Absolute Lymphocytes 0.72 L (1.2-3.4) k/cumm BUN 33 H (7-18) mg/dL Glucose 171 H (70-100) mg/dL Vital Signs Temperature 36.7 C 02/20/18 16:55 Temperature Source Tympanic 02/20/18 16:55 Pulse 70 02/20/18 16:55 Pulse Rhythm Irregular 02/20/18 15:49 Pulse 81 02/18/18 18:30 Respiratory Rate 18 02/20/18 16:55 Respiratory Effort Non-Labored 02/20/18 15:49 Respiratory Depth Normal 02/20/18 15:49 Respiratory Pattern Normal 02/20/18 15:49 Blood Pressure 147/91 H 02/20/18 16:55 Blood Pressure Mean 91 02/18/18 19:25 Blood Pressure Position Supine 02/18/18 19:25 Pulse Oximetry 96 02/20/18 16:55 Oxygen Delivery Method Nasal Cannula 02/20/18 16:55 Oxygen Flow Rate 3 02/20/18 16:55 Fraction of Inspired Oxygen (FIO2) 45 02/18/18 08:44 Pain Level 0 02/20/18 12:03 Comment 02/20/18 12:03 Intake & Output 02/19/18 02/20/18 02/20/18 23:59 11:59 23:59 Intake Total 360 / 1526.25 780 / 1280 500 / 1280 Output Total 1000 / 1650 1350 / 1350 Balance -640 / -123.75 -570 / -70 500 / -70 Intake: IV 90 / 340 250 / 340 Oral 360 / 900 690 / 940 250 / 940 Output: Urine 1000 / 1650 1350 / 1350 Other: Urine Color Yellow Yellow Urine Appearance Clear Clear Clear Urine Odor None Comment voided x 3 for 700cc value Voiding Methods Urinal Urinal Laboratory Results WBC 14.91 k/cumm (4.4-10.8) H 02/20/18 06:50 RBC 4.34 m/cumm (4.50-6.00) L 02/20/18 06:50 Hgb 12.9 g/dL (13.5-17.5) L 02/20/18 06:50 Hct 40.2 % (40.0-50.0) 02/20/18 06:50 MCV 92.6 fL (80-95) 02/20/18 06:50 MCH 29.7 pg (27.0-33.0) 02/20/18 06:50 MCHC 32.1 g/dL (32.0-36.0) 02/20/18 06:50 RDW 15.1 % (11.8-14.1) H 02/20/18 06:50 Plt Count 131 x1000/uL (130-400) 02/20/18 06:50 MPV 12.6 fL (8.0-11.0) H 02/20/18 06:50 Immature Gran % 0.3 02/20/18 06:50 Neutrophils % 91.7 02/20/18 06:50 Lymphocytes % 4.8 02/20/18 06:50 Monocytes % 3.2 02/20/18 06:50 Eosinophils % 0.0 02/20/18 06:50 Basophils % 0.0 02/20/18 06:50 Absolute Neutrophils 13.67 k/cumm (1.2-6.7) H 02/20/18 06:50 Absolute Lymphocytes 0.72 k/cumm (1.2-3.4) L 02/20/18 06:50 Absolute Monocytes 0.48 k/cumm (0.11-0.7) 02/20/18 06:50 Absolute Eosinophils 0.00 k/cumm (0.0-0.7) 02/20/18 06:50 Absolute Basophils 0.00 k/cumm (0.0-0.2) 02/20/18 06:50 PT 12.1 sec (9.3-11.0) H 02/17/18 06:40 INR 1.2 (0.9-1.1) H 02/17/18 06:40 APTT 22.6 sec (21.0-31.4) 02/17/18 06:40 Sample Site Right radial 02/17/18 09:42 pCO2 35 mmHg (34-47) 02/17/18 09:42 pO2 144 mmHg (83-108) H 02/17/18 09:42 O2 Saturation 99 % (94-98) H 02/17/18 09:42 ABG pH 7.39 (7.35-7.45) 02/17/18 09:42 ABG HCO3 21 mmol/L (22-28) L 02/17/18 09:42 ABG Total CO2 18 mmol/L (22-29) L 02/17/18 09:42 ABG Base Excess -4.4 mmol/L (-3-3) L 02/17/18 09:42 Oxygen Liter Flow Bipap 12/5 L 02/17/18 09:42 FiO2 100% % 02/17/18 09:42 Sodium 140 mmol/L (136-145) 02/20/18 06:50 Potassium 5.1 mmol/L (3.5-5.1) 02/20/18 06:50 Chloride 105 mmol/L (98-107) 02/20/18 06:50 Carbon Dioxide 27.5 mmol/L (21.0-32.0) 02/20/18 06:50 Anion Gap 7.5 mmol/L (3-11) 02/20/18 06:50 BUN 33 mg/dL (7-18) H 02/20/18 06:50 Creatinine 1.27 mg/dL (0.70-1.30) 02/20/18 06:50 Estimated GFR/1.73 m2 54.43 (mL/min/1.73m2) 02/20/18 06:50 Glucose 171 mg/dL (70-100) H 02/20/18 06:50 Lactate 2.1 mmol/L (0.6-1.4) H 02/19/18 07:30 Calcium 9.1 mg/dL (8.5-10.1) 02/20/18 06:50 Magnesium 2.2 mg/dL (1.8-2.4) 02/20/18 06:50 Total Bilirubin 0.8 mg/dL (0.2-1.0) 02/17/18 06:40 AST 15 U/L (15-37) 02/17/18 06:40 ALT 25 U/L (12-78) 02/17/18 06:40 Alkaline Phosphatase 82 U/L (46-116) 02/17/18 06:40 Troponin I 0.06 ng/mL (0.00-0.06) 02/17/18 06:40 NT-Pro-B Natriuret Pep 2393 pg/mL (-299) H 02/17/18 06:40 Total Protein 6.4 g/dL (6.4-8.2) 02/17/18 06:40 Albumin 3.4 g/dL (3.4-5.0) 02/17/18 06:40 Urine Color [place] (Yellow) 02/17/18 11:45 Urine Clarity Clear 02/17/18 11:45 Urine pH 5.5 (5-8) 02/17/18 11:45 Ur Specific [place] >= 1.030 (1.005-1.025) H 02/17/18 11:45 Urine Protein Trace mg/dL (Negative) H 02/17/18 11:45 Urine Ketones Trace mg/dL (Negative) H 02/17/18 11:45 Urine Blood Negative (Negative) 02/17/18 11:45 Urine Nitrite Negative (Negative) 02/17/18 11:45 Urine Bilirubin Negative (Negative) 02/17/18 11:45 Urine Urobilinogen 1.0 EU/dL (Up TO 0.2) H 02/17/18 11:45 Ur Leukocyte Esterase Negative (Negative) 02/17/18 11:45 Urine RBC Negative (0-2) 02/17/18 11:45 Urine WBC 0-2 HPF (0-5) 02/17/18 11:45 Ur Epithelial Cells Rare HPF (Negative) 02/17/18 11:45 Urine Crystals Mod calcium oxalate HPF (Negative) 02/17/18 11:45 Urine Bacteria Few HPF (Negative) 02/17/18 11:45 Urine Casts 3-5 hyaline LPF (Negative) 02/17/18 11:45 Urine Mucus Moderate (Negative) 02/17/18 11:45 Ur Culture Indicated? No 02/17/18 11:45 Urine Glucose Negative mg/dL (Negative) 02/17/18 11:45
[2018-02-20] MEDS: Insulin Glargine 300 UNITS/3 ML PEN 55 UNITS SC (21:40)
[2018-02-21] VITALS (11 sets, daily range): BP systolic 119–165; BP diastolic 67–103; PULSE 53–88; RESP 2–22; TEMP 36.3–37; O2SAT 90–98
[2018-02-21] MEDS: Albuterol/Ipratropium 3 ML UPD VIAL UPD ×4 (00:40→17:44)
[2018-02-21] MEDS: Levothyroxine 75 MCG TAB PO (07:00)
[2018-02-21 07:43] LABS: Abs Immature Grans 0.12 k/cumm (0.0-0.09); Absolute Basophil Count 0.01 k/cumm (0.0-0.2); Absolute Monocyte Count 0.63 k/cumm (0.11-0.7); Basophils % 0.1; HCT 41.7 % (40.0-50.0); HGB 13.7 g/dL (13.5-17.5); Immature Grans % 0.9; Lymphocytes % 5.7; Mean Corp. HGB Concentration 32.9 g/dL (32.0-36.0); Mean Corpuscular Volume 91.4 fL (80-95); Mean Platelet Volume 11.8 fL (8.0-11.0); Monocytes % 4.5; Neutrophils % 88.8; Platelet Count 144 x1000/uL (130-400); RBC 4.56 m/cumm (4.50-6.00); White Blood Cell Count 14.03 k/cumm (4.4-10.8)
[2018-02-21] MEDS: Budesonide/Formoterol 160/4.5 6 GM 60 PUFF INH IH ×2 (07:44→20:58)
[2018-02-21 07:45] LABS: Absolute Neutrophil Count 12.46 k/cumm (1.2-6.7)
[2018-02-21 07:46] LABS: Anion Gap 6.5 mmol/L (3-11); BUN 32 mg/dL (7-18); CO2 27.5 mmol/L (21.0-32.0); CREATININE 1.14 mg/dL (0.70-1.30); Chloride 105 mmol/L (98-107); Glucose 133 mg/dL (70-100); Potassium 4.5 mmol/L (3.5-5.1); Sodium 139 mmol/L (136-145)
[2018-02-21] MEDS: Atorvastatin 40 MG TAB PO (08:59)
[2018-02-21] MEDS: Cyanocobalamin 500 MCG TAB 1000 MCG PO (08:59)
[2018-02-21] MEDS: Aspirin E.C. 81 MG TABEC PO (08:59)
[2018-02-21] MEDS: Apixaban 2.5 MG TAB PO ×2 (08:59→20:51)
[2018-02-21] MEDS: Metoprolol 50 MG TAB 100 MG PO ×2 (08:59→20:51)
[2018-02-21] MEDS: Furosemide 20 MG/2 ML VIAL IVP ×2 (08:59→17:15)
[2018-02-21] MEDS: guaiFENesin 600 MG TABCR PO ×2 (08:59→20:51)
[2018-02-21] MEDS: predniSONE 20 MG TAB 40 MG PO ×2 (08:59→20:51)
[2018-02-21] MEDS: Normal Saline Flush 10 ML SYR IVP ×2 (09:00→17:16)
[2018-02-21] MEDS: Insulin Aspart 300 UNITS/3 ML PEN 7 UNITS SC ×3 (09:04→17:17)
[2018-02-21] MEDS: AZITHROMYCIN 500 MG in Normal Saline 250 ML 250 MG IVPB (10:13)
[2018-02-21] MEDS: Insulin Aspart 300 UNITS/3 ML PEN SC ×2 (12:01→22:16)
--- NOTE | 2018-02-21 15:20 | PDOC.CMPRO ---
Care Management Progress Note S/O: Romero was sitting up in his chair, reading an article to his from the local paper when CM entered the room. The couple was pleasant in interaction and curious about discharge timing but shared no other concerns at this time. CM will continue to follow. A: Romero is a 82 year old male admitted with COPD exacerbation. P: Romero will be discharged home when medically ready per MD. He will resume pulmonary rehab as well as oxygen services through [facility] at time of discharge. He will follow up with his PCP ([facility] notification) and plan of care as prescribed. Romero will transport via private vehicle with his , Francisca.
--- NOTE | 2018-02-21 15:25 | CMPROGNOTE_ITS ---
Care Management Progress Note S/O: Romero was sitting up in his chair, reading an article to his from the local paper when CM entered the room. The couple was pleasant in interaction and curious about discharge timing but shared no other concerns at this time. CM will continue to follow. A: Romero is a 82 year old male admitted with COPD exacerbation. P: Romero will be discharged home when medically ready per MD. He will resume pulmonary rehab as well as oxygen services through [facility] at time of discharge. He will follow up with his PCP ([facility] notification) and plan of care as prescribed. Romero will transport via private vehicle with his , Francisca.
--- NOTE | 2018-02-21 20:10 | PGE_ITS ---
Date of Service Date of service: 02/21/18 Time of Service: 20:04 Assessment and Plan (1) Sepsis: Current visit: Yes Status: Acute With Pulmonary Infection as source. Appears resolved. (2) CAP (community acquired pneumonia): Current visit: Yes Status: Acute Continue antibiotic therapy with Azithromycin & Ceftriaxone, currently Day #4. Culture data unrevealing. Patient appears improving. (3) Acute and chronic respiratory failure with hypoxia: Current visit: Yes Status: Acute Continues to improve. On baseline nocturnal oxygen. Monitor and wean oxygen as able. (4) JOSE (acute kidney injury): Current visit: Yes Status: Acute Likely pre-renal. Resolved with fluid resuscitation and treatment of infection. (5) Type 2 diabetes mellitus with hyperglycemia: Current visit: No Status: Acute Continue ISS. Glipizide and Metformin on hold. (6) Diabetes mellitus: Current visit: No Status: Chronic (7) Chronic atrial fibrillation: Current visit: No Status: Chronic Continue BB. On anticoagulation with Apixaban. (8) Hypothyroid: Current visit: No Status: Chronic Continue replacement therapy. (9) Coronary atherosclerosis of [place] coronary vessel: Current visit: No Status: Chronic Asymptomatic. Continue ASA, statin, and BB therapy. (10) DVT prophylaxis: Current visit: Yes Status: Acute On active anticoagulation with Apixaban. Will start PPI given need for Steroid therapy and sepsis. (11) Advance directive on file: Current visit: Yes Status: Acute DNR/DNI. Subjective Interval history since last seen: 82 year old male with a prior history of chronic hypoxic respiratory failure on nocturnal oxygen, admitted from [facility] Emergency Department on 02/17 with a diagnosis of Pneumonia, Sepsis, and JOSE. Mr. Peoples has a history of chronic hypoxic respiratory failure, on nocturnal oxygen at 6L, as well as severe pulmonary hypertension, and restrictive lung disease. He also has known CAD s/p CABG, chronic systolic CHF with an EF of 45- 50%, Afib on anticoagulation, Diabetes, and HTN. The patient presented to the ED with reported SOB and found to be hypoxic and in acute respiratory distress. He was also hypotensive. Imaging showed evidence of pneumonia bilaterally. He was admitted and responded to both antibiotic and IVF therapy, and today feels vastly improved. No overnight events reported. Remains afebrile. Exam Narrative Exam Narrative: General: Patient appears comfortable, sitting out of bed in chair, AAOX3, NAD Neck: Supple CV: Irregularly Irregular, nontachycardic, S1S2, No rubs, murmurs, or gallops. Pulmonary: Bibasilar crackles, no rhonchi or wheezing Abdomen: + Bowel Sounds, soft, nontender, nondistended Vascular: B/l lower extremity edema Psych: Normal mood and affect. Objective Objective Clinical Data: Abnormal lab results 02/21/18 02/21/18 Range/Units 07:12 07:12 WBC 14.03 H (4.4-10.8) k/cumm RDW 15.0 H (11.8-14.1) % MPV 11.8 H (8.0-11.0) fL Absolute Neutrophils 12.46 H (1.2-6.7) k/cumm Absolute Lymphocytes 0.80 L (1.2-3.4) k/cumm BUN 32 H (7-18) mg/dL Glucose 133 H (70-100) mg/dL Vital Signs Temperature 36.4 C L 02/21/18 19:16 Temperature Source Tympanic 02/21/18 19:16 Pulse 88 02/21/18 19:16 Pulse Rhythm Irregular 02/21/18 17:30 Pulse 81 02/18/18 18:30 Respiratory Rate 19 02/21/18 19:16 Respiratory Effort Non-Labored 02/21/18 10:26 Respiratory Depth Normal 02/21/18 10:26 Respiratory Pattern Normal 02/21/18 10:26 Blood Pressure 137/90 02/21/18 19:16 Blood Pressure Mean 91 02/18/18 19:25 Blood Pressure Position Supine 02/18/18 19:25 Pulse Oximetry 92 L 02/21/18 19:16 Oxygen Delivery Method Nasal Cannula 02/21/18 19:16 Oxygen Flow Rate 2 02/21/18 19:16 Fraction of Inspired Oxygen (FIO2) 45 02/18/18 08:44 Pain Level 0 02/20/18 12:03 Comment 02/20/18 12:03 Intake & Output 02/20/18 02/21/18 02/21/18 23:59 11:59 23:59 Intake Total 500 / 1280 590 / 1080 490 / 1080 Output Total 350 / 1700 475 / 1500 1025 / 1500 Balance 150 / -420 115 / -420 -535 / -420 Weight 93 kg Intake: IV 250 / 340 90 / 340 250 / 340 Oral 250 / 940 500 / 740 240 / 740 Output: Urine 350 / 1700 475 / 1500 1025 / 1500 Other: Urine Color Yellow Yellow Yellow Urine Appearance Clear Cloudy Clear Urine Odor Normal Normal Voiding Methods Urinal Urinal Urinal Laboratory Results WBC 14.03 k/cumm (4.4-10.8) H 02/21/18 07:12 RBC 4.56 m/cumm (4.50-6.00) 02/21/18 07:12 Hgb 13.7 g/dL (13.5-17.5) 02/21/18 07:12 Hct 41.7 % (40.0-50.0) 02/21/18 07:12 MCV 91.4 fL (80-95) 02/21/18 07:12 MCH 30.0 pg (27.0-33.0) 02/21/18 07:12 MCHC 32.9 g/dL (32.0-36.0) 02/21/18 07:12 RDW 15.0 % (11.8-14.1) H 02/21/18 07:12 Plt Count 144 x1000/uL (130-400) 02/21/18 07:12 MPV 11.8 fL (8.0-11.0) H 02/21/18 07:12 Immature Gran % 0.9 02/21/18 07:12 Neutrophils % 88.8 02/21/18 07:12 Lymphocytes % 5.7 02/21/18 07:12 Monocytes % 4.5 02/21/18 07:12 Eosinophils % 0.0 02/21/18 07:12 Basophils % 0.1 02/21/18 07:12 Absolute Neutrophils 12.46 k/cumm (1.2-6.7) H 02/21/18 07:12 Absolute Lymphocytes 0.80 k/cumm (1.2-3.4) L 02/21/18 07:12 Absolute Monocytes 0.63 k/cumm (0.11-0.7) 02/21/18 07:12 Absolute Eosinophils 0.00 k/cumm (0.0-0.7) 02/21/18 07:12 Absolute Basophils 0.01 k/cumm (0.0-0.2) 02/21/18 07:12 PT 12.1 sec (9.3-11.0) H 02/17/18 06:40 INR 1.2 (0.9-1.1) H 02/17/18 06:40 APTT 22.6 sec (21.0-31.4) 02/17/18 06:40 Sample Site Right radial 02/17/18 09:42 pCO2 35 mmHg (34-47) 02/17/18 09:42 pO2 144 mmHg (83-108) H 02/17/18 09:42 O2 Saturation 99 % (94-98) H 02/17/18 09:42 ABG pH 7.39 (7.35-7.45) 02/17/18 09:42 ABG HCO3 21 mmol/L (22-28) L 02/17/18 09:42 ABG Total CO2 18 mmol/L (22-29) L 02/17/18 09:42 ABG Base Excess -4.4 mmol/L (-3-3) L 02/17/18 09:42 Oxygen Liter Flow Bipap 12/5 L 02/17/18 09:42 FiO2 100% % 02/17/18 09:42 Sodium 139 mmol/L (136-145) 02/21/18 07:12 Potassium 4.5 mmol/L (3.5-5.1) 02/21/18 07:12 Chloride 105 mmol/L (98-107) 02/21/18 07:12 Carbon Dioxide 27.5 mmol/L (21.0-32.0) 02/21/18 07:12 Anion Gap 6.5 mmol/L (3-11) 02/21/18 07:12 BUN 32 mg/dL (7-18) H 02/21/18 07:12 Creatinine 1.14 mg/dL (0.70-1.30) 02/21/18 07:12 Estimated GFR/1.73 m2 >= 60.00 (mL/min/1.73m2) 02/21/18 07:12 Glucose 133 mg/dL (70-100) H 02/21/18 07:12 Lactate 2.1 mmol/L (0.6-1.4) H 02/19/18 07:30 Calcium 9.0 mg/dL (8.5-10.1) 02/21/18 07:12 Magnesium 2.0 mg/dL (1.8-2.4) 02/21/18 07:12 Total Bilirubin 0.8 mg/dL (0.2-1.0) 02/17/18 06:40 AST 15 U/L (15-37) 02/17/18 06:40 ALT 25 U/L (12-78) 02/17/18 06:40 Alkaline Phosphatase 82 U/L (46-116) 02/17/18 06:40 Troponin I 0.06 ng/mL (0.00-0.06) 02/17/18 06:40 NT-Pro-B Natriuret Pep 2393 pg/mL (-299) H 02/17/18 06:40 Total Protein 6.4 g/dL (6.4-8.2) 02/17/18 06:40 Albumin 3.4 g/dL (3.4-5.0) 02/17/18 06:40 Urine Color Suzette (Yellow) 02/17/18 11:45 Urine Clarity Clear 02/17/18 11:45 Urine pH 5.5 (5-8) 02/17/18 11:45 Ur Specific [place] >= 1.030 (1.005-1.025) H 02/17/18 11:45 Urine Protein Trace mg/dL (Negative) H 02/17/18 11:45 Urine Ketones Trace mg/dL (Negative) H 02/17/18 11:45 Urine Blood Negative (Negative) 02/17/18 11:45 Urine Nitrite Negative (Negative) 02/17/18 11:45 Urine Bilirubin Negative (Negative) 02/17/18 11:45 Urine Urobilinogen 1.0 EU/dL (Up TO 0.2) H 02/17/18 11:45 Ur Leukocyte Esterase Negative (Negative) 02/17/18 11:45 Urine RBC Negative (0-2) 02/17/18 11:45 Urine WBC 0-2 HPF (0-5) 02/17/18 11:45 Ur Epithelial Cells Rare HPF (Negative) 02/17/18 11:45 Urine Crystals Mod calcium oxalate HPF (Negative) 02/17/18 11:45 Urine Bacteria Few HPF (Negative) 02/17/18 11:45 Urine Casts 3-5 hyaline LPF (Negative) 02/17/18 11:45 Urine Mucus Moderate (Negative) 02/17/18 11:45 Ur Culture Indicated? No 02/17/18 11:45 Urine Glucose Negative mg/dL (Negative) 02/17/18 11:45
[2018-02-21] MEDS: Insulin Glargine 300 UNITS/3 ML PEN 55 UNITS SC (22:17)
[2018-02-22] VITALS (12 sets, daily range): BP systolic 103–146; BP diastolic 61–93; PULSE 61–80; RESP 1–20; TEMP 36.5–36.6; O2SAT 93–98
[2018-02-22] MEDS: Albuterol/Ipratropium 3 ML UPD VIAL UPD ×5 (00:37→23:46)
[2018-02-22] MEDS: Levothyroxine 75 MCG TAB PO (06:32)
[2018-02-22 07:13] LABS: Abs Immature Grans 0.23 k/cumm (0.0-0.09); Absolute Lymphocyte Count 0.87 k/cumm (1.2-3.4); Basophils % 0.1; HCT 42.9 % (40.0-50.0); Immature Grans % 1.3; Lymphocytes % 4.9; Mean Corp. HGB Concentration 32.6 g/dL (32.0-36.0); Mean Corpuscular Hemoglobin 29.9 pg (27.0-33.0); Mean Corpuscular Volume 91.5 fL (80-95); Mean Platelet Volume 12.3 fL (8.0-11.0); Monocytes % 4.8; Neutrophils % 88.9; Platelet Count 141 x1000/uL (130-400); RBC 4.69 m/cumm (4.50-6.00); RBC Distribution Width 14.9 % (11.8-14.1); White Blood Cell Count 17.82 k/cumm (4.4-10.8)
[2018-02-22 07:14] LABS: Absolute Basophil Count 0.02 k/cumm (0.0-0.2); Absolute Monocyte Count 0.86 k/cumm (0.11-0.7); Absolute Neutrophil Count 15.84 k/cumm (1.2-6.7)
[2018-02-22] MEDS: Budesonide/Formoterol 160/4.5 6 GM 60 PUFF INH IH ×2 (07:30→19:23)
[2018-02-22] MEDS: Normal Saline Flush 10 ML SYR IVP ×2 (09:04→17:23)
[2018-02-22] MEDS: Pantoprazole 40 MG VIAL IVP (09:05)
[2018-02-22] MEDS: guaiFENesin 600 MG TABCR PO ×2 (09:05→19:24)
[2018-02-22] MEDS: Aspirin E.C. 81 MG TABEC PO (09:05)
[2018-02-22] MEDS: Atorvastatin 40 MG TAB PO (09:05)
[2018-02-22] MEDS: Insulin Aspart 300 UNITS/3 ML PEN 7 UNITS SC ×3 (09:05→16:24)
[2018-02-22] MEDS: Metoprolol 50 MG TAB 100 MG PO ×2 (09:06→19:24)
[2018-02-22] MEDS: predniSONE 20 MG TAB 40 MG PO ×2 (09:06→19:23)
[2018-02-22] MEDS: Apixaban 2.5 MG TAB PO ×2 (09:06→19:24)
[2018-02-22] MEDS: Furosemide 20 MG/2 ML VIAL IVP ×2 (09:06→16:22)
[2018-02-22] MEDS: Cyanocobalamin 500 MCG TAB 1000 MCG PO (09:06)
[2018-02-22] MEDS: AZITHROMYCIN 500 MG in Normal Saline 250 ML 250 MG IVPB (09:56)
--- NOTE | 2018-02-22 14:32 | PDOC.CMPRO ---
Care Management Progress Note S/O: Romero was sitting up in his chair, readying himself to watch the football game with Colette. The couple remains pleasant in interaction and spoke in length about the weather, interests and told stories. Romero spoke about a trip he took in the seventies when he recalls the weather being negative thirty five degrees, he appears alert and oriented and fully engaged with this song writer. He verbalizes understanding of continued admission and shares excitement about watching the football game. CM will continue to follow. A: Romero is a 82 year old male admitted with COPD exacerbation. P: Romero will be discharged home when medically ready per MD. He will resume pulmonary rehab as well as oxygen services through [facility] at time of discharge. He will follow up with his PCP ([facility] notification) and plan of care as prescribed. Romero will transport via private vehicle with his , Francisca.
--- NOTE | 2018-02-22 14:36 | CMPROGNOTE_ITS ---
Care Management Progress Note S/O: Romero was sitting up in his chair, readying himself to watch the football game with Colette. The couple remains pleasant in interaction and spoke in length about the weather, interests and told stories. Romero spoke about a trip he took in the seventies when he recalls the weather being negative thirty five degrees, he appears alert and oriented and fully engaged with this engineering writer. He verbalizes understanding of continued admission and shares excitement about watching the football game. CM will continue to follow. A: Romero is a 82 year old male admitted with COPD exacerbation. P: Romero will be discharged home when medically ready per MD. He will resume pulmonary rehab as well as oxygen services through [facility] at time of discharge. He will follow up with his PCP ([facility] notification) and plan of care as prescribed. Romero will transport via private vehicle with his , Francisca.
--- NOTE | 2018-02-22 16:00 | W.PM.PROGNOT ---
Date of Service Date of service: 02/22/18 Time of Service: 16:00 Assessment and Plan (1) Sepsis: Current visit: Yes Status: Acute With Pulmonary Infection as source. Appears resolved. (2) CAP (community acquired pneumonia): Current visit: Yes Status: Acute Continue antibiotic therapy with Azithromycin & Ceftriaxone, currently Day #5. Culture data unrevealing. Patient appears to be improved. (3) Acute and chronic respiratory failure with hypoxia: Current visit: Yes Status: Acute Continues to improve. On baseline nocturnal oxygen. Monitor and wean oxygen as able. (4) JOSE (acute kidney injury): Current visit: Yes Status: Acute Likely pre-renal. Resolved with fluid resuscitation and treatment of infection. (5) Type 2 diabetes mellitus with hyperglycemia: Current visit: No Status: Acute Continue ISS. Glipizide and Metformin on hold. ADA diet. (6) Chronic atrial fibrillation: Current visit: No Status: Chronic Continue BB. On anticoagulation with Apixaban. (7) Hypothyroid: Current visit: No Status: Chronic Continue replacement therapy. (8) Coronary atherosclerosis of [place] coronary vessel: Current visit: No Status: Chronic Asymptomatic. Continue ASA, statin, and BB therapy. (9) DVT prophylaxis: Current visit: Yes Status: Acute On active anticoagulation with Apixaban. Continue PPI given need for Steroid therapy and sepsis. (10) Advance directive on file: Current visit: Yes Status: Acute DNR/DNI. Subjective Interval history since last seen: 82 year old male with a prior history of chronic hypoxic respiratory failure on nocturnal oxygen, admitted from [facility] Emergency Department on 02/17 with a diagnosis of Pneumonia, Sepsis, and JOSE. Mr. Peoples has a history of chronic hypoxic respiratory failure, on nocturnal oxygen at 6L, as well as severe pulmonary hypertension, and restrictive lung disease. He also has known CAD s/p CABG, chronic systolic CHF with an EF of 45-50%, Afib on anticoagulation, Diabetes, and HTN. The patient presented to the ED with reported SOB and found to be hypoxic and in acute respiratory distress. He was also hypotensive. Imaging showed evidence of pneumonia bilaterally. He was admitted and responded to both antibiotic and IVF therapy, and continues to feel vastly improved. No overnight events reported. Remains afebrile. Exam Narrative Exam Narrative: General: Patient appears comfortable, sitting out of bed in chair, AAOX3, NAD Neck: Supple CV: Irregularly Irregular, nontachycardic, S1S2, No rubs, murmurs, or gallops. Pulmonary: Bibasilar crackles are improved since yesterday morning, no rhonchi or wheezing Abdomen: + Bowel Sounds, soft, nontender, non-distended Vascular: B/l lower extremity edema Psych: Normal mood and affect. Objective Objective Clinical Data: Abnormal lab results 02/22/18 Range/Units 06:20 WBC 17.82 H (4.4-10.8) k/cumm RDW 14.9 H (11.8-14.1) % MPV 12.3 H (8.0-11.0) fL Absolute Neutrophils 15.84 H (1.2-6.7) k/cumm Absolute Lymphocytes 0.87 L (1.2-3.4) k/cumm Absolute Monocytes 0.86 H (0.11-0.7) k/cumm Vital Signs Temperature 36.6 C 02/22/18 08:23 Temperature Source Tympanic 02/22/18 08:23 Pulse 74 02/22/18 14:18 Pulse Rhythm Irregular 02/22/18 08:00 Pulse 81 02/18/18 18:30 Respiratory Rate 20 02/22/18 14:18 Respiratory Effort Non-Labored 02/22/18 08:00 Respiratory Depth Normal 02/22/18 08:00 Respiratory Pattern Normal 02/22/18 08:00 Blood Pressure 133/83 02/22/18 14:18 Blood Pressure Mean 91 02/18/18 19:25 Blood Pressure Position Supine 02/18/18 19:25 Pulse Oximetry 93 L 02/22/18 14:18 Oxygen Delivery Method Nasal Cannula 02/22/18 14:18 Oxygen Flow Rate 2 02/22/18 14:18 Fraction of Inspired Oxygen (FIO2) 45 02/18/18 08:44 Pain Level 0 02/22/18 14:18 Comment 02/22/18 04:15 Intake & Output 02/21/18 02/22/18 02/22/18 23:59 11:59 23:59 Intake Total 1300 / 1890 1130 / 1370 240 / 1370 Output Total 1625 / 2100 1575 / 1575 Balance -325 / -210 -445 / -205 240 / -205 Weight 91.8 kg Intake: IV 260 / 350 330 / 330 Oral 1040 / 1540 800 / 1040 240 / 1040 Output: Urine 1625 / 2100 1575 / 1575 Other: Urine Color Pale Yellow Yellow Urine Appearance Clear Clear Urine Odor Normal Normal Voiding Methods Urinal Urinal Laboratory Results WBC 17.82 k/cumm (4.4-10.8) H 02/22/18 06:20 RBC 4.69 m/cumm (4.50-6.00) 02/22/18 06:20 Hgb 14.0 g/dL (13.5-17.5) 02/22/18 06:20 Hct 42.9 % (40.0-50.0) 02/22/18 06:20 MCV 91.5 fL (80-95) 02/22/18 06:20 MCH 29.9 pg (27.0-33.0) 02/22/18 06:20 MCHC 32.6 g/dL (32.0-36.0) 02/22/18 06:20 RDW 14.9 % (11.8-14.1) H 02/22/18 06:20 Plt Count 141 x1000/uL (130-400) 02/22/18 06:20 MPV 12.3 fL (8.0-11.0) H 02/22/18 06:20 Immature Gran % 1.3 02/22/18 06:20 Neutrophils % 88.9 02/22/18 06:20 Lymphocytes % 4.9 02/22/18 06:20 Monocytes % 4.8 02/22/18 06:20 Eosinophils % 0.0 02/22/18 06:20 Basophils % 0.1 02/22/18 06:20 Absolute Neutrophils 15.84 k/cumm (1.2-6.7) H 02/22/18 06:20 Absolute Lymphocytes 0.87 k/cumm (1.2-3.4) L 02/22/18 06:20 Absolute Monocytes 0.86 k/cumm (0.11-0.7) H 02/22/18 06:20 Absolute Eosinophils 0.00 k/cumm (0.0-0.7) 02/22/18 06:20 Absolute Basophils 0.02 k/cumm (0.0-0.2) 02/22/18 06:20 PT 12.1 sec (9.3-11.0) H 02/17/18 06:40 INR 1.2 (0.9-1.1) H 02/17/18 06:40 APTT 22.6 sec (21.0-31.4) 02/17/18 06:40 Sample Site Right radial 02/17/18 09:42 pCO2 35 mmHg (34-47) 02/17/18 09:42 pO2 144 mmHg (83-108) H 02/17/18 09:42 O2 Saturation 99 % (94-98) H 02/17/18 09:42 ABG pH 7.39 (7.35-7.45) 02/17/18 09:42 ABG HCO3 21 mmol/L (22-28) L 02/17/18 09:42 ABG Total CO2 18 mmol/L (22-29) L 02/17/18 09:42 ABG Base Excess -4.4 mmol/L (-3-3) L 02/17/18 09:42 Oxygen Liter Flow Bipap 12/5 L 02/17/18 09:42 FiO2 100% % 02/17/18 09:42 Sodium 139 mmol/L (136-145) 02/21/18 07:12 Potassium 4.5 mmol/L (3.5-5.1) 02/21/18 07:12 Chloride 105 mmol/L (98-107) 02/21/18 07:12 Carbon Dioxide 27.5 mmol/L (21.0-32.0) 02/21/18 07:12 Anion Gap 6.5 mmol/L (3-11) 02/21/18 07:12 BUN 32 mg/dL (7-18) H 02/21/18 07:12 Creatinine 1.14 mg/dL (0.70-1.30) 02/21/18 07:12 Estimated GFR/1.73 m2 >= 60.00 (mL/min/1.73m2) 02/21/18 07:12 Glucose 133 mg/dL (70-100) H 02/21/18 07:12 Lactate 2.1 mmol/L (0.6-1.4) H 02/19/18 07:30 Calcium 9.0 mg/dL (8.5-10.1) 02/21/18 07:12 Magnesium 2.0 mg/dL (1.8-2.4) 02/21/18 07:12 Total Bilirubin 0.8 mg/dL (0.2-1.0) 02/17/18 06:40 AST 15 U/L (15-37) 02/17/18 06:40 ALT 25 U/L (12-78) 02/17/18 06:40 Alkaline Phosphatase 82 U/L (46-116) 02/17/18 06:40 Troponin I 0.06 ng/mL (0.00-0.06) 02/17/18 06:40 NT-Pro-B Natriuret Pep 2393 pg/mL (-299) H 02/17/18 06:40 Total Protein 6.4 g/dL (6.4-8.2) 02/17/18 06:40 Albumin 3.4 g/dL (3.4-5.0) 02/17/18 06:40 Urine Color Suzette (Yellow) 02/17/18 11:45 Urine Clarity Clear 02/17/18 11:45 Urine pH 5.5 (5-8) 02/17/18 11:45 Ur Specific [place] >= 1.030 (1.005-1.025) H 02/17/18 11:45 Urine Protein Trace mg/dL (Negative) H 02/17/18 11:45 Urine Ketones Trace mg/dL (Negative) H 02/17/18 11:45 Urine Blood Negative (Negative) 02/17/18 11:45 Urine Nitrite Negative (Negative) 02/17/18 11:45 Urine Bilirubin Negative (Negative) 02/17/18 11:45 Urine Urobilinogen 1.0 EU/dL (Up TO 0.2) H 02/17/18 11:45 Ur Leukocyte Esterase Negative (Negative) 02/17/18 11:45 Urine RBC Negative (0-2) 02/17/18 11:45 Urine WBC 0-2 HPF (0-5) 02/17/18 11:45 Ur Epithelial Cells Rare HPF (Negative) 02/17/18 11:45 Urine Crystals Mod calcium oxalate HPF (Negative) 02/17/18 11:45 Urine Bacteria Few HPF (Negative) 02/17/18 11:45 Urine Casts 3-5 hyaline LPF (Negative) 02/17/18 11:45 Urine Mucus Moderate (Negative) 02/17/18 11:45 Ur Culture Indicated? No 02/17/18 11:45 Urine Glucose Negative mg/dL (Negative) 02/17/18 11:45
[2018-02-22] MEDS: Insulin Aspart 300 UNITS/3 ML PEN SC (22:14)
[2018-02-22] MEDS: Insulin Glargine 300 UNITS/3 ML PEN 55 UNITS SC (22:15)
[2018-02-23] VITALS (14 sets, daily range): BP systolic 123–137; BP diastolic 75–86; PULSE 55–95; RESP 1–20; TEMP 36.1–36.9; O2SAT 67–98
[2018-02-23] MEDS: Albuterol/Ipratropium 3 ML UPD VIAL UPD ×4 (05:52→23:34)
[2018-02-23] MEDS: Levothyroxine 75 MCG TAB PO (05:52)
[2018-02-23 07:21] LABS: HCT 45.9 % (40.0-50.0); HGB 15.2 g/dL (13.5-17.5); Mean Corp. HGB Concentration 33.1 g/dL (32.0-36.0); Mean Corpuscular Hemoglobin 29.9 pg (27.0-33.0); Mean Corpuscular Volume 90.2 fL (80-95); Mean Platelet Volume 12.4 fL (8.0-11.0); RBC 5.09 m/cumm (4.50-6.00); RBC Distribution Width 14.9 % (11.8-14.1); White Blood Cell Count 20.81 k/cumm (4.4-10.8)
[2018-02-23 07:33] LABS: Anion Gap 7.6 mmol/L (3-11); BUN 37 mg/dL (7-18); CO2 30.4 mmol/L (21.0-32.0); CREATININE 1.31 mg/dL (0.70-1.30); Chloride 101 mmol/L (98-107); Estimated GFR 52.52 (mL/min/1.73m2); Glucose 207 mg/dL (70-100); Magnesium 2.2 mg/dL (1.8-2.4); Potassium 4.5 mmol/L (3.5-5.1); Sodium 139 mmol/L (136-145)
[2018-02-23 08:26] LABS: Absolute Lymphocyte Count 1.25 k/cumm (1.2-3.4); Absolute Monocyte Count 1.04 k/cumm (0.11-0.7); Absolute Neutrophil Count 18.52 k/cumm (1.2-6.7); Atypical Lymphocytes % 2; Diff Comment Manual Differential; Platelet Count 184 x1000/uL (130-400); RBC Morphology Normal
[2018-02-23] MEDS: Pantoprazole 40 MG VIAL IVP (08:52)
[2018-02-23] MEDS: Normal Saline Flush 10 ML SYR IVP ×2 (08:52→17:06)
[2018-02-23] MEDS: Metoprolol 50 MG TAB 100 MG PO ×2 (08:53→20:34)
[2018-02-23] MEDS: Cyanocobalamin 500 MCG TAB 1000 MCG PO (08:53)
[2018-02-23] MEDS: Atorvastatin 40 MG TAB PO (08:53)
[2018-02-23] MEDS: Insulin Aspart 300 UNITS/3 ML PEN 7 UNITS SC ×3 (08:54→17:05)
[2018-02-23] MEDS: guaiFENesin 600 MG TABCR PO ×2 (08:54→20:34)
[2018-02-23] MEDS: Apixaban 2.5 MG TAB PO ×2 (08:54→20:34)
[2018-02-23] MEDS: Aspirin E.C. 81 MG TABEC PO (08:54)
[2018-02-23] MEDS: Insulin Aspart 300 UNITS/3 ML PEN SC ×3 (08:54→22:49)
[2018-02-23] MEDS: Furosemide 20 MG TAB 30 MG PO (09:14)
[2018-02-23] MEDS: predniSONE 20 MG TAB 40 MG PO (09:14)
[2018-02-23] MEDS: Budesonide/Formoterol 160/4.5 6 GM 60 PUFF INH IH ×2 (09:53→20:34)
[2018-02-23] MEDS: AZITHROMYCIN 500 MG in Normal Saline 250 ML 250 MG IVPB (09:54)
--- NOTE | 2018-02-23 17:57 | PDOC.CMPRO ---
- If Service Date Differs Date of service: 02/23/18 Time of Service: 17:57 Care Management Progress Note S/O: Romero was sitting up in his chair, when CM entered the room. He is not ready for discharged today per provider. CM did review with RT resources to assist patient with a more discreet mobile oxygen concentrator. RT will review resources with the patient. He remains on IV Azithromycin and Ceftriaxone. A: Romero is a 82 year old male admitted with COPD exacerbation. P: Romero will be discharged home when medically ready per MD. He will resume pulmonary rehab as well as oxygen services through [facility] at time of discharge. He will need a follow up appointment scheduled prior to discharge for medical clerence to return to pulmonary rehab. He will follow up with his PCP ([facility] notification) and plan of care as prescribed. Romero will transport via private vehicle with his , Francisca.
--- NOTE | 2018-02-23 18:00 | CMPROGNOTE_ITS ---
- If Service Date Differs Date of service: 02/23/18 Time of Service: 17:57 Care Management Progress Note S/O: Romero was sitting up in his chair, when CM entered the room. He is not ready for discharged today per provider. CM did review with RT resources to assist patient with a more discreet mobile oxygen concentrator. RT will review resources with the patient. He remains on IV Azithromycin and Ceftriaxone. A: Romero is a 82 year old male admitted with COPD exacerbation. P: Romero will be discharged home when medically ready per MD. He will resume pulmonary rehab as well as oxygen services through [facility] at time of discharge. He will need a follow up appointment scheduled prior to discharge for medical clerence to return to pulmonary rehab. He will follow up with his PCP ([facility] notification) and plan of care as prescribed. Romreo will transport via private vehicle with his , Francisca.
--- NOTE | 2018-02-23 22:17 | PGE_ITS ---
Date of Service Date of service: 02/23/18 Time of Service: 22:14 Assessment and Plan (1) Sepsis: Current visit: Yes Status: Acute With Pulmonary Infection as source. Appears resolved. (2) CAP (community acquired pneumonia): Current visit: Yes Status: Acute Continue antibiotic therapy with Azithromycin & Ceftriaxone, Azithromycin d/c'd. Plan on one additional day of CTx, currently Day #6. Culture data unrevealing. Patient appears to be improved. (3) Acute and chronic respiratory failure with hypoxia: Current visit: Yes Status: Acute Continues to improve. On baseline nocturnal oxygen. Currently weaned successfully off oxygen. (4) JOSE (acute kidney injury): Current visit: Yes Status: Acute May be due to slight over diuresis. Decrease lasix down to home dose, and monitor creatinine carefully. (5) Type 2 diabetes mellitus with hyperglycemia: Current visit: No Status: Acute Continue ISS. Glipizide and Metformin on hold. ADA diet. (6) Chronic atrial fibrillation: Current visit: No Status: Chronic Continue BB. On anticoagulation with Apixaban. (7) Hypothyroid: Current visit: No Status: Chronic Continue replacement therapy. (8) Coronary atherosclerosis of [place] coronary vessel: Current visit: No Status: Chronic Asymptomatic. Continue ASA, statin, and BB therapy. (9) DVT prophylaxis: Current visit: Yes Status: Acute On active anticoagulation with Apixaban. Continue PPI given need for Steroid therapy and sepsis. (10) Advance directive on file: Current visit: Yes Status: Acute DNR/DNI. Subjective Interval history since last seen: 82 year old male with a prior history of chronic hypoxic respiratory failure on nocturnal oxygen, admitted from [facility] Emergency Department on 02/17 with a diagnosis of Pneumonia, Sepsis, and JOSE. Mr. Peoples has a history of chronic hypoxic respiratory failure, on nocturnal oxygen at 6L, as well as severe pulmonary hypertension, and restrictive lung disease. He also has known CAD s/p CABG, chronic systolic CHF with an EF of 45- 50%, Afib on anticoagulation, Diabetes, and HTN. The patient presented to the ED with reported SOB and found to be hypoxic and in acute respiratory distress. He was also hypotensive. Imaging showed evidence of pneumonia bilaterally. He was admitted and responded to both antibiotic and IVF therapy, and continues to feel vastly improved. He is now ambulating without need for supplemental oxygen. No overnight events reported. Remains afebrile. Exam Narrative Exam Narrative: General: Patient appears comfortable, sitting out of bed in chair, AAOX3, NAD Neck: Supple CV: Irregularly Irregular, nontachycardic, S1S2, No rubs, murmurs, or gallops. Pulmonary: Bibasilar crackles are vastly improved since prior exam, no rhonchi or wheezing Abdomen: + Bowel Sounds, soft, nontender, non-distended Vascular: B/l lower extremity edema Psych: Normal mood and affect. Objective Objective Clinical Data: Abnormal lab results 02/23/18 02/23/18 Range/Units 06:59 06:59 WBC 20.81 H (4.4-10.8) k/cumm RDW 14.9 H (11.8-14.1) % MPV 12.4 H (8.0-11.0) fL Absolute Neutrophils 18.52 H (1.2-6.7) k/cumm Absolute Monocytes 1.04 H (0.11-0.7) k/cumm BUN 37 H (7-18) mg/dL Creatinine 1.31 H (0.70-1.30) mg/dL Glucose 207 H (70-100) mg/dL Vital Signs Temperature 36.4 C L 02/23/18 19:50 Temperature Source Tympanic 02/23/18 19:50 Pulse 89 02/23/18 19:50 Pulse Rhythm Regular 02/23/18 20:28 Pulse 81 02/18/18 18:30 Respiratory Rate 18 02/23/18 19:50 Respiratory Effort 02/23/18 16:22 Respiratory Depth Normal 02/23/18 16:22 Respiratory Pattern Normal 02/23/18 16:22 Blood Pressure 129/79 02/23/18 19:50 Blood Pressure Mean 91 02/18/18 19:25 Blood Pressure Position Supine 02/18/18 19:25 Pulse Oximetry 94 L 02/23/18 19:50 Oxygen Delivery Method Room Air 02/23/18 19:50 Oxygen Flow Rate 0 02/23/18 19:50 Fraction of Inspired Oxygen (FIO2) 45 02/18/18 08:44 Pain Level 0 02/22/18 16:15 Comment 02/23/18 14:50 Intake & Output 02/22/18 02/23/18 02/23/18 23:59 11:59 23:59 Intake Total 810 / 1940 1020 / 1460 440 / 1460 Output Total 1350 / 2925 925 / 1450 525 / 1450 Balance -540 / -985 95 / 10 -85 / 10 Weight 90.5 kg Intake: IV 20 / 350 270 / 270 Oral 790 / 1590 750 / 1190 440 / 1190 Output: Urine 1350 / 2925 925 / 1450 525 / 1450 Other: Urine Color Yellow Pale Yellow Yellow Urine Appearance Clear Clear Clear Urine Odor Normal Normal Normal Comment Voiding frequency d/t lasix administration. Pt denies sx. Voiding Methods Urinal Urinal Toilet Laboratory Results WBC 20.81 k/cumm (4.4-10.8) H 02/23/18 06:59 RBC 5.09 m/cumm (4.50-6.00) 02/23/18 06:59 Hgb 15.2 g/dL (13.5-17.5) 02/23/18 06:59 Hct 45.9 % (40.0-50.0) 02/23/18 06:59 MCV 90.2 fL (80-95) 02/23/18 06:59 MCH 29.9 pg (27.0-33.0) 02/23/18 06:59 MCHC 33.1 g/dL (32.0-36.0) 02/23/18 06:59 RDW 14.9 % (11.8-14.1) H 02/23/18 06:59 Plt Count 184 x1000/uL (130-400) 02/23/18 06:59 MPV 12.4 fL (8.0-11.0) H 02/23/18 06:59 Immature Gran % 0.0 02/23/18 06:59 Neutrophils % 88.0 02/23/18 06:59 Lymphocytes % 4.0 02/23/18 06:59 Monocytes % 5.0 02/23/18 06:59 Eosinophils % 0.0 02/23/18 06:59 Basophils % 0.0 02/23/18 06:59 Absolute Neutrophils 18.52 k/cumm (1.2-6.7) H 02/23/18 06:59 Band Neutrophils 1.0 % 02/23/18 06:59 Absolute Lymphocytes 1.25 k/cumm (1.2-3.4) 02/23/18 06:59 Absolute Monocytes 1.04 k/cumm (0.11-0.7) H 02/23/18 06:59 Absolute Eosinophils 0.00 k/cumm (0.0-0.7) 02/23/18 06:59 Absolute Basophils 0.00 k/cumm (0.0-0.2) 02/23/18 06:59 Differential Comment Manual differential 02/23/18 06:59 Atypical Lymphocytes 2 02/23/18 06:59 RBC Morphology Normal 02/23/18 06:59 PT 12.1 sec (9.3-11.0) H 02/17/18 06:40 INR 1.2 (0.9-1.1) H 02/17/18 06:40 APTT 22.6 sec (21.0-31.4) 02/17/18 06:40 Sample Site Right radial 02/17/18 09:42 pCO2 35 mmHg (34-47) 02/17/18 09:42 pO2 144 mmHg (83-108) H 02/17/18 09:42 O2 Saturation 99 % (94-98) H 02/17/18 09:42 ABG pH 7.39 (7.35-7.45) 02/17/18 09:42 ABG HCO3 21 mmol/L (22-28) L 02/17/18 09:42 ABG Total CO2 18 mmol/L (22-29) L 02/17/18 09:42 ABG Base Excess -4.4 mmol/L (-3-3) L 02/17/18 09:42 Oxygen Liter Flow Bipap 12/5 L 02/17/18 09:42 FiO2 100% % 02/17/18 09:42 Sodium 139 mmol/L (136-145) 02/23/18 06:59 Potassium 4.5 mmol/L (3.5-5.1) 02/23/18 06:59 Chloride 101 mmol/L (98-107) 02/23/18 06:59 Carbon Dioxide 30.4 mmol/L (21.0-32.0) 02/23/18 06:59 Anion Gap 7.6 mmol/L (3-11) 02/23/18 06:59 BUN 37 mg/dL (7-18) H 02/23/18 06:59 Creatinine 1.31 mg/dL (0.70-1.30) H 02/23/18 06:59 Estimated GFR/1.73 m2 52.52 (mL/min/1.73m2) 02/23/18 06:59 Glucose 207 mg/dL (70-100) H 02/23/18 06:59 Lactate 2.1 mmol/L (0.6-1.4) H 02/19/18 07:30 Calcium 9.0 mg/dL (8.5-10.1) 02/23/18 06:59 Magnesium 2.2 mg/dL (1.8-2.4) 02/23/18 06:59 Total Bilirubin 0.8 mg/dL (0.2-1.0) 02/17/18 06:40 AST 15 U/L (15-37) 02/17/18 06:40 ALT 25 U/L (12-78) 02/17/18 06:40 Alkaline Phosphatase 82 U/L (46-116) 02/17/18 06:40 Troponin I 0.06 ng/mL (0.00-0.06) 02/17/18 06:40 NT-Pro-B Natriuret Pep 2393 pg/mL (-299) H 02/17/18 06:40 Total Protein 6.4 g/dL (6.4-8.2) 02/17/18 06:40 Albumin 3.4 g/dL (3.4-5.0) 02/17/18 06:40 Urine Color Suzette (Yellow) 02/17/18 11:45 Urine Clarity Clear 02/17/18 11:45 Urine pH 5.5 (5-8) 02/17/18 11:45 Ur Specific [place] >= 1.030 (1.005-1.025) H 02/17/18 11:45 Urine Protein Trace mg/dL (Negative) H 02/17/18 11:45 Urine Ketones Trace mg/dL (Negative) H 02/17/18 11:45 Urine Blood Negative (Negative) 02/17/18 11:45 Urine Nitrite Negative (Negative) 02/17/18 11:45 Urine Bilirubin Negative (Negative) 02/17/18 11:45 Urine Urobilinogen 1.0 EU/dL (Up TO 0.2) H 02/17/18 11:45 Ur Leukocyte Esterase Negative (Negative) 02/17/18 11:45 Urine RBC Negative (0-2) 02/17/18 11:45 Urine WBC 0-2 HPF (0-5) 02/17/18 11:45 Ur Epithelial Cells Rare HPF (Negative) 02/17/18 11:45 Urine Crystals Mod calcium oxalate HPF (Negative) 02/17/18 11:45 Urine Bacteria Few HPF (Negative) 02/17/18 11:45 Urine Casts 3-5 hyaline LPF (Negative) 02/17/18 11:45 Urine Mucus Moderate (Negative) 02/17/18 11:45 Ur Culture Indicated? No 02/17/18 11:45 Urine Glucose Negative mg/dL (Negative) 02/17/18 11:45
[2018-02-23] MEDS: Insulin Glargine 300 UNITS/3 ML PEN 55 UNITS SC (22:50)
[2018-02-24] VITALS (11 sets, daily range): BP systolic 100–133; BP diastolic 64–87; PULSE 57–93; RESP 1–20; TEMP 36.6–37.4; O2SAT 93–98
[2018-02-24] MEDS: Albuterol/Ipratropium 3 ML UPD VIAL UPD ×3 (06:53→18:42)
[2018-02-24] MEDS: Levothyroxine 75 MCG TAB PO (06:53)
[2018-02-24 07:18] LABS: Abs Immature Grans 0.59 k/cumm (0.0-0.09); HCT 46.1 % (40.0-50.0); HGB 15.1 g/dL (13.5-17.5); Mean Corp. HGB Concentration 32.8 g/dL (32.0-36.0); Mean Corpuscular Volume 91.7 fL (80-95); Mean Platelet Volume 12.3 fL (8.0-11.0); Platelet Count 167 x1000/uL (130-400); RBC 5.03 m/cumm (4.50-6.00); RBC Distribution Width 14.9 % (11.8-14.1); White Blood Cell Count 16.76 k/cumm (4.4-10.8)
[2018-02-24 07:28] LABS: Anion Gap 4.1 mmol/L (3-11); BUN 36 mg/dL (7-18); CO2 33.9 mmol/L (21.0-32.0); CREATININE 1.41 mg/dL (0.70-1.30); Calcium 8.7 mg/dL (8.5-10.1); Chloride 103 mmol/L (98-107); Estimated GFR 48.24 (mL/min/1.73m2); Glucose 56 mg/dL (70-100); Magnesium 2.1 mg/dL (1.8-2.4); Potassium 3.5 mmol/L (3.5-5.1); Sodium 141 mmol/L (136-145)
[2018-02-24 07:54] LABS: Absolute Eosinophil Count 0.17 k/cumm (0.0-0.7); Absolute Lymphocyte Count 2.35 k/cumm (1.2-3.4); Absolute Monocyte Count 1.68 k/cumm (0.11-0.7); Absolute Neutrophil Count 12.07 k/cumm (1.2-6.7); Atypical Lymphocytes % 4; Diff Comment Manual Differential; Poikilocytes 1+
[2018-02-24] MEDS: Budesonide/Formoterol 160/4.5 6 GM 60 PUFF INH IH ×2 (07:58→19:57)
[2018-02-24] MEDS: predniSONE 20 MG TAB 40 MG PO (08:39)
[2018-02-24] MEDS: Aspirin E.C. 81 MG TABEC PO (08:39)
[2018-02-24] MEDS: Atorvastatin 40 MG TAB PO (08:41)
[2018-02-24] MEDS: Metoprolol 50 MG TAB 100 MG PO ×2 (08:41→19:56)
[2018-02-24] MEDS: guaiFENesin 600 MG TABCR PO ×2 (08:41→19:56)
[2018-02-24] MEDS: Furosemide 20 MG TAB 30 MG PO (08:42)
[2018-02-24] MEDS: Pantoprazole 40 MG VIAL IVP (08:42)
[2018-02-24] MEDS: Apixaban 2.5 MG TAB PO ×2 (08:42→19:56)
[2018-02-24] MEDS: Cyanocobalamin 500 MCG TAB 1000 MCG PO (08:42)
[2018-02-24] MEDS: Normal Saline Flush 10 ML SYR IVP ×2 (08:49→10:13)
[2018-02-24] MEDS: Normal Saline 1,000 ML 75 ML IV (10:12)
--- NOTE | 2018-02-24 14:30 | CHAPLAIN ---
Romero was sitting up in his chair when I visited this morning, hoping he will be discharged today. Romero remains pleasant and easily engages in conversation. He is from [place]. His will be in later to visit. When he is feeling weel, Romero meets each morning with the same group of men at the [facility] and he misses that time with friends.
--- NOTE | 2018-02-24 16:21 | CMPROGNOTE_ITS ---
- If Service Date Differs Date of service: 02/24/18 Time of Service: 16:18 Care Management Progress Note S/O: Romero remains positive there is no change in the discharge plan today. He continues on IV antibiotics and oral steroids and his WBC is trending down. A: Romero is a 82 year old male admitted with COPD exacerbation. P: Romero will be discharged home when medically ready per MD. He will resume pulmonary rehab as well as oxygen services through [facility] at time of discharge. He will need a follow up appointment scheduled prior to discharge for medical clerence to return to pulmonary rehab. He will follow up with his PCP ([facility] notification) and plan of care as prescribed. Romero will transport via private vehicle with his , Francisca.
[2018-02-24] MEDS: Insulin Aspart 300 UNITS/3 ML PEN 7 UNITS SC (17:06)
[2018-02-24] MEDS: Insulin Aspart 300 UNITS/3 ML PEN SC ×2 (17:07→21:49)
--- NOTE | 2018-02-24 19:28 | PGE_ITS ---
Date of Service Date of service: 02/24/18 Time of Service: 19:23 Assessment and Plan (1) Sepsis: Current visit: Yes Status: Acute With Pulmonary Infection as source. Appears resolved. (2) CAP (community acquired pneumonia): Current visit: Yes Status: Acute Continue antibiotic therapy with Azithromycin & Ceftriaxone, Azithromycin d/c'd. Plan on one additional day of CTx, currently Day #7 - will discontinue after tonight. Culture data unrevealing. Patient appears to be improved. (3) Acute and chronic respiratory failure with hypoxia: Current visit: Yes Status: Acute Continues to improve. On baseline nocturnal oxygen. Currently weaned successfully off oxygen. (4) JOSE (acute kidney injury): Current visit: Yes Status: Acute May be due to slight over diuresis. Decrease lasix slightly higher despite return to home dose of oral furosemide. Hold lasix, initiate very gentle and mild IVFs, and monitor creatinine and volume status carefully. (5) Type 2 diabetes mellitus with hyperglycemia: Current visit: No Status: Acute Continue ISS. Glipizide and Metformin on hold. ADA diet. (6) Chronic atrial fibrillation: Current visit: No Status: Chronic Continue BB. On anticoagulation with Apixaban. (7) Hypothyroid: Current visit: No Status: Chronic Continue replacement therapy. (8) Coronary atherosclerosis of [place] coronary vessel: Current visit: No Status: Chronic Asymptomatic. Continue ASA, statin, and BB therapy. (9) DVT prophylaxis: Current visit: Yes Status: Acute On active anticoagulation with Apixaban. Continue PPI given need for Steroid therapy and sepsis. (10) Advance directive on file: Current visit: Yes Status: Acute DNR/DNI. Subjective Interval history since last seen: 82 year old male with a prior history of chronic hypoxic respiratory failure on nocturnal oxygen, admitted from [facility] Emergency Department on 02/17 with a diagnosis of Pneumonia, Sepsis, and JOSE. Mr. Peoples has a history of chronic hypoxic respiratory failure, on nocturnal oxygen at 6L, as well as severe pulmonary hypertension, and restrictive lung disease. He also has known CAD s/p CABG, chronic systolic CHF with an EF of 45- 50%, Afib on anticoagulation, Diabetes, and HTN. The patient presented to the ED with reported SOB and found to be hypoxic and in acute respiratory distress. He was also hypotensive. Imaging showed evidence of pneumonia bilaterally. He was admitted and responded to both antibiotic and IVF therapy, and continues to feel vastly improved. He is now ambulating without need for supplemental oxygen. This morning his creatinine is mildly worse. No overnight events reported. Remains afebrile. Exam Narrative Exam Narrative: General: Patient appears comfortable, sitting out of bed in chair, AAOX3, NAD Neck: Supple CV: Irregularly Irregular, nontachycardic, S1S2, No rubs, murmurs, or gallops. Pulmonary: Bibasilar crackles are resolved, no rhonchi or wheezing Abdomen: + Bowel Sounds, soft, nontender, non-distended Vascular: B/l lower extremity edema Psych: Normal mood and affect. Objective Objective Clinical Data: Abnormal lab results 02/24/18 02/24/18 Range/Units 06:25 06:25 WBC 16.76 H (4.4-10.8) k/cumm RDW 14.9 H (11.8-14.1) % MPV 12.3 H (8.0-11.0) fL Absolute Neutrophils 12.07 H (1.2-6.7) k/cumm Absolute Monocytes 1.68 H (0.11-0.7) k/cumm Carbon Dioxide 33.9 H (21.0-32.0) mmol/L BUN 36 H (7-18) mg/dL Creatinine 1.41 H (0.70-1.30) mg/dL Glucose 56 L D (70-100) mg/dL Vital Signs Temperature 37.4 C 02/24/18 19:14 Temperature Source Tympanic 02/24/18 19:14 Pulse 93 H 02/24/18 19:14 Pulse Rhythm Irregular 02/24/18 15:29 Pulse 81 02/18/18 18:30 Respiratory Rate 19 02/24/18 19:14 Respiratory Effort Non-Labored 02/24/18 15:29 Respiratory Depth Normal 02/24/18 15:29 Respiratory Pattern Normal 02/24/18 15:29 Blood Pressure 117/79 02/24/18 19:14 Blood Pressure Mean 91 02/18/18 19:25 Blood Pressure Position Supine 02/18/18 19:25 Pulse Oximetry 96 02/24/18 19:14 Oxygen Delivery Method Room Air 02/24/18 19:14 Oxygen Flow Rate 0 02/24/18 19:14 Fraction of Inspired Oxygen (FIO2) 45 02/18/18 08:44 Pain Level 0 02/24/18 07:25 Comment 02/23/18 14:50 Intake & Output 02/23/18 02/24/18 02/24/18 23:59 11:59 23:59 Intake Total 680 / 1750 530 / 1250.00 720.00 / 1250.00 Output Total 525 / 1740 850 / 1750 900 / 1750 Balance 155 / 10 -320 / -500.00 -180.00 / -500.00 Intake: IV 50 / 530.00 480.00 / 530.00 Oral 680 / 1430 480 / 720 240 / 720 Output: Urine 525 / 1740 850 / 1750 900 / 1750 Other: Urine Color Yellow Yellow Yellow Urine Appearance Clear Clear Clear Urine Odor Normal Normal Normal Voiding Methods Toilet Urinal Urinal Laboratory Results WBC 16.76 k/cumm (4.4-10.8) H 02/24/18 06:25 RBC 5.03 m/cumm (4.50-6.00) 02/24/18 06:25 Hgb 15.1 g/dL (13.5-17.5) 02/24/18 06:25 Hct 46.1 % (40.0-50.0) 02/24/18 06:25 MCV 91.7 fL (80-95) 02/24/18 06:25 MCH 30.0 pg (27.0-33.0) 02/24/18 06:25 MCHC 32.8 g/dL (32.0-36.0) 02/24/18 06:25 RDW 14.9 % (11.8-14.1) H 02/24/18 06:25 Plt Count 167 x1000/uL (130-400) 02/24/18 06:25 MPV 12.3 fL (8.0-11.0) H 02/24/18 06:25 Immature Gran % See Differential 02/24/18 06:25 Neutrophils % 72.0 02/24/18 06:25 Lymphocytes % 10.0 02/24/18 06:25 Monocytes % 10.0 02/24/18 06:25 Eosinophils % 1.0 02/24/18 06:25 Basophils % 0.0 02/24/18 06:25 Absolute Neutrophils 12.07 k/cumm (1.2-6.7) H 02/24/18 06:25 Band Neutrophils 1.0 % 02/23/18 06:59 Absolute Lymphocytes 2.35 k/cumm (1.2-3.4) 02/24/18 06:25 Absolute Monocytes 1.68 k/cumm (0.11-0.7) H 02/24/18 06:25 Absolute Eosinophils 0.17 k/cumm (0.0-0.7) 02/24/18 06:25 Absolute Basophils 0.00 k/cumm (0.0-0.2) 02/24/18 06:25 Metamyelocytes 1.0 % 02/24/18 06:25 Myelocytes 2.0 % 02/24/18 06:25 Differential Comment Manual differential 02/24/18 06:25 Atypical Lymphocytes 4 02/24/18 06:25 RBC Morphology See below 02/24/18 06:25 Poikilocytosis 1+ 02/24/18 06:25 PT 12.1 sec (9.3-11.0) H 02/17/18 06:40 INR 1.2 (0.9-1.1) H 02/17/18 06:40 APTT 22.6 sec (21.0-31.4) 02/17/18 06:40 Sample Site Right radial 02/17/18 09:42 pCO2 35 mmHg (34-47) 02/17/18 09:42 pO2 144 mmHg (83-108) H 02/17/18 09:42 O2 Saturation 99 % (94-98) H 02/17/18 09:42 ABG pH 7.39 (7.35-7.45) 02/17/18 09:42 ABG HCO3 21 mmol/L (22-28) L 02/17/18 09:42 ABG Total CO2 18 mmol/L (22-29) L 02/17/18 09:42 ABG Base Excess -4.4 mmol/L (-3-3) L 02/17/18 09:42 Oxygen Liter Flow Bipap 12/5 L 02/17/18 09:42 FiO2 100% % 02/17/18 09:42 Sodium 141 mmol/L (136-145) 02/24/18 06:25 Potassium 3.5 mmol/L (3.5-5.1) D 02/24/18 06:25 Chloride 103 mmol/L (98-107) 02/24/18 06:25 Carbon Dioxide 33.9 mmol/L (21.0-32.0) H 02/24/18 06:25 Anion Gap 4.1 mmol/L (3-11) 02/24/18 06:25 BUN 36 mg/dL (7-18) H 02/24/18 06:25 Creatinine 1.41 mg/dL (0.70-1.30) H 02/24/18 06:25 Estimated GFR/1.73 m2 48.24 (mL/min/1.73m2) 02/24/18 06:25 Glucose 56 mg/dL (70-100) L D 02/24/18 06:25 Lactate 2.1 mmol/L (0.6-1.4) H 02/19/18 07:30 Calcium 8.7 mg/dL (8.5-10.1) 02/24/18 06:25 Magnesium 2.1 mg/dL (1.8-2.4) 02/24/18 06:25 Total Bilirubin 0.8 mg/dL (0.2-1.0) 02/17/18 06:40 AST 15 U/L (15-37) 02/17/18 06:40 ALT 25 U/L (12-78) 02/17/18 06:40 Alkaline Phosphatase 82 U/L (46-116) 02/17/18 06:40 Troponin I 0.06 ng/mL (0.00-0.06) 02/17/18 06:40 NT-Pro-B Natriuret Pep 2393 pg/mL (-299) H 02/17/18 06:40 Total Protein 6.4 g/dL (6.4-8.2) 02/17/18 06:40 Albumin 3.4 g/dL (3.4-5.0) 02/17/18 06:40 Urine Color Suz[place] (Yellow) 02/17/18 11:45 Urine Clarity Clear 02/17/18 11:45 Urine pH 5.5 (5-8) 02/17/18 11:45 Ur Specific [place] >= 1.030 (1.005-1.025) H 02/17/18 11:45 Urine Protein Trace mg/dL (Negative) H 02/17/18 11:45 Urine Ketones Trace mg/dL (Negative) H 02/17/18 11:45 Urine Blood Negative (Negative) 02/17/18 11:45 Urine Nitrite Negative (Negative) 02/17/18 11:45 Urine Bilirubin Negative (Negative) 02/17/18 11:45 Urine Urobilinogen 1.0 EU/dL (Up TO 0.2) H 02/17/18 11:45 Ur Leukocyte Esterase Negative (Negative) 02/17/18 11:45 Urine RBC Negative (0-2) 02/17/18 11:45 Urine WBC 0-2 HPF (0-5) 02/17/18 11:45 Ur Epithelial Cells Rare HPF (Negative) 02/17/18 11:45 Urine Crystals Mod calcium oxalate HPF (Negative) 02/17/18 11:45 Urine Bacteria Few HPF (Negative) 02/17/18 11:45 Urine Casts 3-5 hyaline LPF (Negative) 02/17/18 11:45 Urine Mucus Moderate (Negative) 02/17/18 11:45 Ur Culture Indicated? No 02/17/18 11:45 Urine Glucose Negative mg/dL (Negative) 02/17/18 11:45
[2018-02-24] MEDS: Insulin Glargine 300 UNITS/3 ML PEN 45 UNITS SC (21:50)
[2018-02-25 03:30] VITALS: BP 124/62; PULSE 64; RESP 18; TEMP 36.5; O2SAT 95
[2018-02-25] MEDS: Levothyroxine 75 MCG TAB PO (06:07)
[2018-02-25] MEDS: Albuterol/Ipratropium 3 ML UPD VIAL UPD (06:07)
[2018-02-25 07:27] LABS: Abs Immature Grans 0.34 k/cumm (0.0-0.09); HCT 45.6 % (40.0-50.0); HGB 14.9 g/dL (13.5-17.5); Mean Corp. HGB Concentration 32.7 g/dL (32.0-36.0); Mean Corpuscular Hemoglobin 29.8 pg (27.0-33.0); Mean Corpuscular Volume 91.2 fL (80-95); Mean Platelet Volume 12.4 fL (8.0-11.0); RBC Distribution Width 14.9 % (11.8-14.1); White Blood Cell Count 14.49 k/cumm (4.4-10.8)
[2018-02-25] MEDS: Budesonide/Formoterol 160/4.5 6 GM 60 PUFF INH IH (07:27)
[2018-02-25 07:30] VITALS: O2SAT 97
[2018-02-25 07:34] LABS: Anion Gap 8.5 mmol/L (3-11); BUN 32 mg/dL (7-18); CO2 30.5 mmol/L (21.0-32.0); CREATININE 1.38 mg/dL (0.70-1.30); Calcium 8.8 mg/dL (8.5-10.1); Chloride 102 mmol/L (98-107); Estimated GFR 49.45 (mL/min/1.73m2); Glucose 94 mg/dL (70-100); Magnesium 2.2 mg/dL (1.8-2.4); Potassium 4.1 mmol/L (3.5-5.1); Sodium 141 mmol/L (136-145)
[2018-02-25 07:40] VITALS: BP 137/84; PULSE 65; RESP 17; TEMP 36.8; O2SAT 96
[2018-02-25] MEDS: Normal Saline Flush 10 ML SYR IVP (08:20)
[2018-02-25] MEDS: guaiFENesin 600 MG TABCR PO (08:20)
[2018-02-25] MEDS: Pantoprazole 40 MG VIAL IVP (08:20)
[2018-02-25] MEDS: Atorvastatin 40 MG TAB PO (08:20)
[2018-02-25] MEDS: Apixaban 2.5 MG TAB PO (08:21)
[2018-02-25] MEDS: Cyanocobalamin 500 MCG TAB 1000 MCG PO (08:21)
[2018-02-25] MEDS: Aspirin E.C. 81 MG TABEC PO (08:21)
[2018-02-25] MEDS: Metoprolol 50 MG TAB 100 MG PO (08:21)
[2018-02-25 08:25] LABS: Absolute Lymphocyte Count 2.32 k/cumm (1.2-3.4); Absolute Monocyte Count 0.87 k/cumm (0.11-0.7); Absolute Neutrophil Count 11.01 k/cumm (1.2-6.7); Atypical Lymphocytes % 3; Platelet Count 160 x1000/uL (130-400)
[2018-02-25 08:26] LABS: Diff Comment Manual Differential; Polychromasia Present
[2018-02-25 08:27] LABS: Poikilocytes 2+
[2018-02-25] MEDS: predniSONE 20 MG TAB 40 MG PO (08:38)
[2018-02-25 11:32] VITALS: BP 158/86; PULSE 59; RESP 20; TEMP 36.8; O2SAT 96
--- NOTE | 2018-02-25 11:41 | DSE_ITS ---
Date of service: 02/25/18 Time of Service: 11:33 DS: Diagnosis Discharge Diagnosis (1) Sepsis: Status: Acute (2) CAP (community acquired pneumonia): Status: Acute (3) Acute and chronic respiratory failure with hypoxia: Status: Acute (4) JOSE (acute kidney injury): Status: Acute (5) Type 2 diabetes mellitus with hyperglycemia: Status: Acute Discharge Plan Disposition Patient Disposition: HOME Condition: Improving Discharge Details Reason For Visit: ACUTE EXACERBATION OF COPD DUE TO CAP, RESP. FAILU Admit Date/Time: 02/17/18 09:52 Admit Provider: Heavenly Bonilla Attending Provider: Heavenly Bonilla Primary Care Provider: Avery Murphy [facility] Course Hospital Course: CC: Dyspnea HPI: 82 year old male with a prior history of chronic hypoxic respiratory failure on nocturnal oxygen, admitted from [facility] Emergency Department on 02/17 with a diagnosis of Pneumonia, Sepsis, and JOSE. Mr. Peoples has a history of chronic hypoxic respiratory failure, on nocturnal oxygen at 6L, as well as severe pulmonary hypertension, and restrictive lung disease. He also has known CAD s/p CABG, chronic systolic CHF with an EF of 45- 50%, Afib on anticoagulation, Diabetes, and HTN. The patient presented to the ED with reported SOB and found to be hypoxic and in acute respiratory distress. He was also hypotensive. Imaging showed evidence of pneumonia bilaterally. He was admitted and responded to both antibiotic and IVF therapy, and continues to feel vastly improved. He is now ambulating without need for supplemental oxygen during the day, although he chronically uses nocturnal O2. This morning his creatinine is stable and mildly improved. He feels well. No overnight events reported. Remains afebrile. Hospital Course: (1) Sepsis: With Pulmonary Infection as source. Resolved. (2) CAP (community acquired pneumonia): Concluded antibiotic therapy with Azithromycin & Ceftriaxone. Culture data unrevealing. Patient appears to be improved and at baseline respiratory status. (3) Acute and chronic respiratory failure with hypoxia: Continues to improve. On baseline nocturnal oxygen. Currently weaned successfully off daytime oxygen, even with ambulation. (4) JOSE (acute kidney injury): Due to slight over diuresis. Mr. Peoples originally came in with a creatinine of 1.8 during acute illness, quickly recofered with fluid resusctation to his baseline of 1.1 - 1.2. He needed diuresis following fluid resuscitation, and while significantly improved from a respiratory standpoint his creatinine bumped to 1.41. His lasix was held and he underwent very gentle hydration last night, with baseline pulmonary exam this morning and a creatinine of 1.38. Plan will be to hold lasix for 2 additional days (Today and tomorrow), monitor weight carefully, and repeat a BMP in 3 days and resume diuretic therapy. (5) Type 2 diabetes mellitus with hyperglycemia: Was maintained on ISS. Glipizide and Metformin were held but will be reinitiated at discharge. ADA diet. (6) Chronic atrial fibrillation: Continue BB. On anticoagulation with Apixaban - please note, patient is over 80 years of age, but with a creatinine of <1.5 and weight >60 kg. Underdosed at 2.5mg BID - increased to appropriate dosing. (7) Hypothyroid: Continue replacement therapy. (8) Coronary atherosclerosis of [place] coronary vessel: Asymptomatic. Continue ASA, statin, and BB therapy. (9) Advance directive on file: DNR/DNI. Home Meds and New Rx's Prescriptions: New prednisone 10 mg tablet 10 mg PO DAILY Qty: 16 RF: 0 Eliquis 5 mg tablet 5 mg PO BID Qty: 60 RF: 0 Continued metformin 500 mg tablet 500 mg PO BID RF: 0 methylprednisolone [Medrol (Luis)] 4 mg tablets,dose pack 4 mg PO DIRECTED PRN (Reason: Gout attack) Qty: 1 RF: 0 aspirin [Aspir-81] 81 MG tablet,delayed release (DR/EC) 81 mg PO DAILY RF: 0 Oxygen EACH HS Qty: 4 RF: 0 glipizide 5 MG tablet 5 mg PO DAILY Qty: 180 RF: 3 metoprolol tartrate 100 MG tablet 100 mg PO BID Qty: 180 RF: 3 nitroglycerin [Nitrostat] 0.4 MG tablet, sublingual 0.4 mg Sublingual PRN PRNQty: 25 RF: 6 Basaglar KwikPen U-100 Insulin 100 UNIT/1 ML insulin pen 37 unit SQ Dinner Time 3 Days Qty: 3 RF: 3 amlodipine 5 MG tablet 5 mg PO DAILY 90 Days Qty: 90 RF: 3 atorvastatin [Lipitor] 40 mg tablet 40 mg PO DAILY Qty: 90 RF: 3 Breo Ellipta 200-25 mcg/dose blister with device 1 inh IH DAILY RF: 0 Contour Test Strips strip 1 ea Miscellaneous BID Qty: 180 RF: 11 lancets [BD Ultra Fine Lancets] 33 gauge misc 1 ea Miscellaneous DAILY Qty: 100 RF: 3 pen needle, diabetic [Pen Needle] 31 gauge x 5/16 needle 1 ea Miscellaneous DAILY Qty: 100 RF: 3 Breo Ellipta 200-25 mcg/dose blister with device 1 inh IH DAILY RF: 0 levothyroxine 75 mcg tablet 75 mcg PO DAILY@0600 Qty: 90 RF: 3 cyanocobalamin (vitamin B-12) [Vitamin B-12] 500 MCG tablet 1,000 mcg PO DAILY Qty: 100 RF: 0 furosemide 20 mg tablet 30 mg PO DAILY 90 Days Qty: 135 RF: 3 Discontinued Eliquis 2.5 mg tablet 2.5 mg PO BID 90 Days Qty: 180 RF: 3 Discharge Instructions Additional Instructions: Please see your primary doctor in 1 week. You have blood work to do in 3 days. Please hold your furosemide for 2 days (today and tomorrow), and weigh yourself everyday. If you gain 1 or more pounds a day please call your primary doctor. Stand Alone Forms: Nursing Discharge Form Referrals: Avery Murphy DO [Primary Care Provider] - 03/03/18 2:00 pm Activity:: No Strenuous Activity. Equipment/Supplies:: No Equipment Needed Diet:: Carb Counting Discharge Orders Discharge Orders: Discharge Order (Routine); Ordered 02/25/18 Ordered By: Todd Sung Other Ambulatory Orders: Basic Metabolic Panel (Routine) Location: Determined by Patient Ordered By: Todd Sung Exam Narrative Exam Narrative: General: Patient appears comfortable, sitting out of bed in chair, AAOX3, NAD Neck: Supple CV: Irregularly Irregular, nontachycardic, S1S2, No rubs, murmurs, or gallops. Pulmonary: Prior bibasilar crackles are resolved, no rhonchi or wheezing Abdomen: + Bowel Sounds, soft, nontender, non-distended Vascular: B/l lower extremity edema stable Psych: Normal mood and affect. DS: Data Vitals/I&O Vitals and I&O: Vital Signs Temperature 36.8 C 02/25/18 07:40 Temperature Source Tympanic 02/25/18 07:40 Pulse 65 02/25/18 07:40 Pulse Rhythm Regular 02/25/18 08:34 Pulse 81 02/18/18 18:30 Respiratory Rate 17 02/25/18 07:40 Respiratory Effort Non-Labored 02/25/18 08:34 Respiratory Depth Normal 02/25/18 08:34 Respiratory Pattern Normal 02/25/18 08:34 Blood Pressure 137/84 02/25/18 07:40 Blood Pressure Mean 91 02/18/18 19:25 Blood Pressure Position Supine 02/18/18 19:25 Pulse Oximetry 96 02/25/18 07:40 Oxygen Delivery Method Room Air 02/25/18 07:40 Oxygen Flow Rate 0 02/25/18 07:40 Fraction of Inspired Oxygen (FIO2) 45 02/18/18 08:44 Pain Level 0 02/25/18 07:40 Comment 02/25/18 03:30 Intake & Output 02/24/18 02/24/18 02/25/18 11:59 23:59 11:59 Intake Total 530 / 1511.25 981.25 / 1511.25 460 / 460 Output Total 850 / 1950 1100 / 1950 900 / 900 Balance -320 / -438.75 -118.75 / -438.75 -440 / -440 Weight 91.1 kg Intake: IV 50 / 791.25 741.25 / 791.25 20 / 20 Oral 480 / 720 240 / 720 440 / 440 Output: Urine 850 / 1950 1100 / 1950 900 / 900 Other: Urine Color Yellow Yellow Yellow Urine Appearance Clear Clear Clear Urine Odor Normal None Normal Voiding Methods Urinal Urinal Urinal Completed studies during hospitalization [Text1]: EXAM: 02/17/2018 XR Chest, 1 View EXAM DATE/TIME: 02/17/2018 6:37 AM CLINICAL HISTORY: 82 years old, male; Signs and symptoms; Shortness of breath; Prior surgery; Surgery date: 6+ months; Surgery type: Cabg; Patient HX: SOB, low o2 stat TECHNIQUE: XR of the chest, 1 view. COMPARISON: CR CHEST 2 VIEWS PA,LAT 04/10/2017 8:51 AM FINDINGS: Lungs: There is new patchy infiltrate throughout much of the right lung, sparing the apex. Some retrocardiac atelectasis or infiltrate is also present. Pleural space: Unremarkable. No pleural effusion. No pneumothorax. Heart/Mediastinum: The cardiomediastinal silhouette is fairly stable in appearance. Bones/joints: Median sternotomy wires are again present. Degenerative changes again involve the spine and shoulders. IMPRESSION: Patchy infiltrate throughout much of the right lung, sparing the apex, with some retrocardiac atelectasis or infiltrate. Exam(s) 02/17/2018 a RAD:XR portable chest AP SYMPTOMS/DIAGNOSIS: SHORTNESS OF BREATH PORTABLE FRONTAL CHEST: Comparison 04/10/17. The heart size is stable and within normal limits. Sternal wires are in place. The left lung is clear. There is an infiltrate seen in the right upper and right lower lobes. There is blunting of the right costophrenic angle which appears stable and is likely scarring. No pneumothorax is seen. No left pleural effusion is present. There are degenerative changes seen in the spine. IMPRESSION: Right upper and right lower lobe pneumonia. Exam(s) 02/18/2018 a RAD:XR chest 2V PA & lateral SYMPTOMS/DIAGNOSIS: F/U PNEUMONIA, ACUTE EXACERBATION OF COPD CHEST X-RAY, FRONTAL AND LATERAL VIEWS: Comparison is 02/17/18. There is poor inspiration. The heart size and pulmonary vasculature are stable. Sternal wires are in place. There are bilateral perihilar infiltrates. The left infiltrate appears new. There has been some improvement in the right perihilar pneumonia. No effusions or pneumothoraces are identified. IMPRESSION: Bilateral perihilar infiltrates, right greater than left. The left infiltrate appears new. The right infiltrate appears somewhat improved in appearance. Labs on day of discharge: Labs from last 24 hours 02/25/18 02/25/18 06:44 06:44 WBC 14.49 H RBC 5.00 Hgb 14.9 Hct 45.6 MCV 91.2 MCH 29.8 MCHC 32.7 RDW 14.9 H Plt Count 160 MPV 12.4 H Immature Gran % 0.0 Neutrophils % 74.0 Band Neutrophils % 2.0 Lymphocytes % 13.0 Atypical Lymphs % 3 Monocytes % 6.0 Eosinophils % 0.0 Basophils % 0.0 Absolute Neutrophils 11.01 H Absolute Lymphocytes 2.32 Absolute Monocytes 0.87 H Absolute Eosinophils 0.00 Absolute Basophils 0.00 Metamyelocytes 1.0 Myelocytes 1.0 Differential Comment Manual differential RBC Morphology See below Polychromasia Present Poikilocytosis 2+ Sodium 141 Potassium 4.1 Chloride 102 Carbon Dioxide 30.5 Anion Gap 8.5 BUN 32 H Creatinine 1.38 H Estimated GFR/1.73 m2 49.45 Glucose 94 Calcium 8.8 Magnesium 2.2 PFSH Medical History Other acute and subacute form of ischemic heart disease (Chronic 06/07/11) Obesity, unspecified (Chronic 02/15/11) 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 (Chronic 06/07/11) Hyperlipidemia (Chronic 02/15/11) Hearing loss (Chronic 02/15/11) Essential hypertension (Chronic 02/15/11) Dyspnea on exertion (Chronic 05/11/13) Diabetes mellitus (Chronic 08/10/00) Cough (Resolved 04/03/12) Coronary artery disease involving [place] coronary artery of [place] heart without angina pectoris (Chronic) Chronic atrial fibrillation (Chronic) Coronary atherosclerosis of [place] coronary vessel (Chronic 02/15/11) Benign neoplasm of colon (Resolved 02/15/11) Atrial arrhythmia (Chronic 02/15/11) Atherosclerosis of [place] coronary artery of [place] heart with unstable angina pectoris (Chronic 02/15/11) Anticoagulation goal of INR 2 to 3 (Resolved 05/12/11) Anticoagulation adequate with anticoagulant therapy (Chronic 05/12/11) Adenoma of transverse colon (Resolved 02/15/11) Arthropathy (Chronic 02/15/11) Restrictive pattern present on pulmonary function testing (Chronic) Abnormal diffusion capacity determined by pulmonary function test (Chronic) RML pneumonia (Resolved) Gout (Chronic) Hypothyroid (Chronic) B12 deficiency (Chronic) Macrocytosis without anemia (Chronic) ASCVD (arteriosclerotic cardiovascular disease) HLD (hyperlipidemia) HTN (hypertension) T2DM (type 2 diabetes mellitus) Tubular adenoma Surgical History Fracture, tibia (Acute ~02/1994) History of appendectomy (Chronic ~01/1954) Hx of CABG (Chronic ~02/2002) Hx of cholecystectomy (Chronic ~01/1991) Family History Mother Cancer Father Stroke Hypertension Sister No problems noted. Brother No problems noted. Brother No problems noted. Social History household members: spouse lives independently: Yes current occupational status: previously employed Smoking/Tobacco Use Status: Never seatbelt use: always drive intox or ride w/ intox transfer driver: No water heater temp set < 120 deg: Yes working smoke detector in home: Yes fire extinguisher in home: Yes carbon monox detector in home: Yes victim of physical abuse: No victim of emotional abuse: No victim of sexual abuse: No additional social history: info from old record
--- NOTE | 2018-02-25 12:15 | W.INDIABCONS ---
Date of service: 02/25/18 Time of Service: 12:17 Diabetes Inpatient Consult DESCRIPTION/ASSESSMENT: Follow up review for Mr. Peoples who has a tapered dose of Prednisone. Blood sugars are currently managed with 45 units Lantus and mealtime insulin at 7 units for food and insulin correction at the moderate level. Mr. Peoples had a hypoglycemic episode yesterday fasting with Lantus at 55units. He has had a reduction in Prednisone to 40mg daily. BLood sugar fasting today 103 and pre-lunch 131 without insulin for food for breakfast. Met with Mr. Peoples. He states he watches his food carefully at home, has had weight loss since his previous heart attack with BMI 28 now. He reports no symptoms of hypoglycemia and denies ever having symptoms. VIsit was shortened by meal delivery and plan to be discharged imminently. INTERVENTION: GIven his age and A1c, no intervention suggested at this time. Explained hyperglycemia here likely due to Prednisone dosing which has been tapered. Explained symptoms of hypoglycemia. Currently takes sulfonylurea, Basaglar 37 units and Metformin 500mg twice daily. Suggested he may expect higher blood sugars while Prednisone is taken. Suggest his PCP will advise if his blood sugar elevation persists. PLAN: Mr. Peoples is aware of our services and will be in touch as he wishes. Time Spent in Nutritional Counseling and Treatment: 10 minutes
--- NOTE | 2018-02-25 13:14 | PDOC.CMDIS ---
- If Service Date Differs Date of service: 02/25/18 Time of Service: 13:16 LACE Index Scoring Tool - Questions: Length of Stay (in days): 7 - 13 Acuity (Admit via E.D.?): Yes Comorbidities: Diabetes w/o Complication, Congestive Heart Failure, Chronic Pulmonary Disease E.D. Visits: 2 - Answers: Total Score: 15 Risk of Readmission: High Risk Care Management Discharge Reason for Hospitalization: Acute Exacerbation of COPD due to CAP, resp failure Discharge Plan: Romero is being discharged home today. He states he feels much better he is sitting up in his chair without oxygen. His breathing is not labored and he states he woke up at 3:00 am feeling great. He is looking forward to resuming his daily coffee group. Romero will resume oxygen through DME and follow up with pcp. Once he is medically cleared he will return to Pulmonary rehab. Patient/Family Education Needs: Education, limitations, follow-up plan of care, medications, ask me 3 and self-management. Services Needed at Discharge: DME Agency
== END 2018-02-25 13:55 | disposition home or self-care (01) | DRG 871 ==
LOC: ER 10:29 → ICU 13:24 → MS 02-25 11:41 → ICU 03-10 09:12
PROVIDERS: Emergency Medicine; Admitting Provider Internal Medicine; Emergency Provider Physician Assistant; PCP Family Medicine; Visit Provider Internal Medicine
DX: A41.9 Sepsis, unspecified organism (principal); J18.9 Pneumonia, unspecified organism; J96.21 Acute and chronic respiratory failure with hypoxia; J44.0 Chronic obstructive pulmonary disease with (acute) lower respiratory infection; J44.1 Chronic obstructive pulmonary disease with (acute) exacerbation; N17.9 Acute kidney failure, unspecified; I47.2 Ventricular tachycardia; I50.22 Chronic systolic (congestive) heart failure; E11.65 Type 2 diabetes mellitus with hyperglycemia; E83.42 Hypomagnesemia; I27.20 Pulmonary hypertension, unspecified; J98.8 Other specified respiratory disorders; Z99.81 Dependence on supplemental oxygen; Z79.84 Long term (current) use of oral hypoglycemic drugs; I48.2 Chronic atrial fibrillation; I11.0 Hypertensive heart disease with heart failure; Z79.01 Long term (current) use of anticoagulants; E03.9 Hypothyroidism, unspecified; I25.10 Atherosclerotic heart disease of native coronary artery without angina pectoris; Z66 Do not resuscitate; R94.2 Abnormal results of pulmonary function studies; I08.0 Rheumatic disorders of both mitral and aortic valves; Z71.3 Dietary counseling and surveillance
CPT/HCPCS: 36410; 36415; 80048; 80053; 82805; 87040; 87449; 93005; 94640; 96361; 96365; 96367; 96375; 97162; 97165; 97530; 97535; 99232; 99233; 99239; 99291; 36600; 71045; 71046; 81003; 81015; 83605; 83735; 83880; 84484; 85025; 85610; 85730; 93010; J0456; J0696; J1941; J2930; J3475; J3490; J7512; J7613; J7620

== ENCOUNTER 2018-02-27 01:24 | Outpatient (CLI) | payer MEDICARE, SELFPAY ==
[2018-02-27 11:07] LABS: Anion Gap 7.1 mmol/L (3-11); BUN 29 mg/dL (7-18); CO2 31.9 mmol/L (21.0-32.0); CREATININE 1.35 mg/dL (0.70-1.30); Calcium 9.3 mg/dL (8.5-10.1); Chloride 102 mmol/L (98-107); Estimated GFR 50.72 (mL/min/1.73m2); Glucose 184 mg/dL (70-100); Sodium 141 mmol/L (136-145)
== END 2018-02-27 01:44 ==
PROVIDERS: Internal Medicine; PCP Family Medicine; Visit Provider Family Medicine
DX: N17.9 Acute kidney failure, unspecified (principal)
CPT/HCPCS: 36415; 80048

== ENCOUNTER 2018-03-13 03:38 | Outpatient (RCR) | payer MEDICARE, SELFPAY | END 2018-04-09 23:59 | disposition home or self-care (01) | LOC: PRC 03:38 | PROVIDERS: PCP Family Medicine; Visit Provider Internal Medicine | DX: J98.4 Other disorders of lung (principal); I27.20 Pulmonary hypertension, unspecified; I25.10 Atherosclerotic heart disease of native coronary artery without angina pectoris; I48.91 Unspecified atrial fibrillation; Z51.89 Encounter for other specified aftercare | CPT/HCPCS: G0424 ==

== ENCOUNTER 2018-04-11 15:18 | Outpatient (RCR) | payer MEDICARE, SELFPAY | END 2018-05-10 23:59 | disposition home or self-care (01) | LOC: PRC 15:18 | PROVIDERS: PCP Family Medicine; Visit Provider Internal Medicine | DX: J98.4 Other disorders of lung (principal); I27.20 Pulmonary hypertension, unspecified; I25.10 Atherosclerotic heart disease of native coronary artery without angina pectoris; I48.91 Unspecified atrial fibrillation; Z51.89 Encounter for other specified aftercare | CPT/HCPCS: G0424 ==

== ENCOUNTER 2018-05-11 05:42 | Outpatient (RCR) | payer MEDICARE, SELFPAY | END 2018-06-09 23:59 | disposition home or self-care (01) | LOC: PRC 05:42 | PROVIDERS: PCP Family Medicine; Visit Provider Internal Medicine | DX: J98.4 Other disorders of lung (principal); I27.20 Pulmonary hypertension, unspecified; I25.10 Atherosclerotic heart disease of native coronary artery without angina pectoris; I48.91 Unspecified atrial fibrillation; Z51.89 Encounter for other specified aftercare | CPT/HCPCS: G0424 ==

== ENCOUNTER 2018-05-28 15:33 | Outpatient (REF) | payer MEDICARE, SELFPAY | END 2018-05-28 15:53 | LOC: LBN 15:33 | PROVIDERS: PCP Family Medicine; Visit Provider Family Medicine | DX: J18.9 Pneumonia, unspecified organism (principal) | CPT/HCPCS: 87449 ==

== ENCOUNTER 2018-05-28 16:31 | Outpatient (CLI) | payer MEDICARE, SELFPAY ==
--- NOTE | 2018-05-28 15:30 | DI.RAD_ITS ---
SYMPTOMS/DIAGNOSIS: FREQUENT PNEUMONIA, COUGH AND RHONCHI ON RIGHT SIDE, J18.9 PA AND LATERAL CHEST: The heart is mildly enlarged. There are multiple mediastinal vascular clips. No pleural effusion is seen. Note is made of areas of increased radiodensity in the right upper lobe, which were not present on most recent chest film of 02/18/18. Patchy right lower lobe and/or middle lobe radiodensities may be present as well, which were present on the previous examination. The left lung is clear. CONCLUSION: Findings suggesting right upper lobe pneumonia, which was not present on previous exam of 02/18/18.
== END 2018-05-28 16:51 ==
PROVIDERS: PCP Family Medicine; Visit Provider Family Medicine
DX: J18.9 Pneumonia, unspecified organism (principal); R05 Cough
CPT/HCPCS: 71046

== ENCOUNTER 2018-06-10 04:36 | Outpatient (RCR) | payer MEDICARE, SELFPAY | END 2018-07-10 23:59 | disposition home or self-care (01) | LOC: PRC 04:36 | PROVIDERS: PCP Family Medicine; Visit Provider Internal Medicine | DX: J98.4 Other disorders of lung (principal); I27.20 Pulmonary hypertension, unspecified; I25.10 Atherosclerotic heart disease of native coronary artery without angina pectoris; I48.91 Unspecified atrial fibrillation; Z51.89 Encounter for other specified aftercare ==

== ENCOUNTER 2018-06-18 13:47 | Outpatient (CLI) | payer MEDICARE, SELFPAY ==
--- NOTE | 2018-06-18 13:00 | DI.RAD_ITS ---
SYMPTOMS/DIAGNOSIS: PULMONARY HYPERTENSION, I27.20, F/U PNEUMONIA ON PREVIOUS CXR PA AND LATERAL CHEST: Examination is compared with the previous examination of 05/28/18. Previously described right upper lobe consolidation appears to have resolved since the previous examination. The lungs are now generally clear. Prominence of the mi bilaterally is again noted, consistent with pulmonary arterial hypertension, unchanged from 04/10/2017. No pleural effusions seen. CONCLUSION: Findings consistent with resolution of previously described pneumonia.
== END 2018-06-18 14:07 ==
PROVIDERS: PCP Family Medicine; Visit Provider Internal Medicine
DX: I27.20 Pulmonary hypertension, unspecified (principal); J18.9 Pneumonia, unspecified organism
CPT/HCPCS: 71046

== ENCOUNTER 2018-07-13 12:49 | Emergency (ER) | payer MEDICARE, SELFPAY ==
[2018-07-13 12:53] VITALS: BP 148/93; PULSE 70; RESP 20; TEMP 36.5; O2SAT 91
--- NOTE | 2018-07-13 13:02 | DI.RAD_ITS ---
SYMPTOMS/DIAGNOSIS: RIGHT SHOULDER AND RIGHT ELBOW PAIN S/P FALL RIGHT SHOULDER: Four views were obtained. There are mild hypertrophic degenerative changes of the acromioclavicular joint. There is mild spurring of the glenoid and humeral head as well, particularly inferiorly. Cartilaginous joint space of the glenohumeral joint may be minimally narrowed. 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 RIGHT ELBOW: Three views were obtained. There are mild degenerative changes of the joints of the elbow with a prominent olecranon spur. There is no evidence of fracture or joint effusion. CONCLUSION: No evidence of acute change.
[2018-07-13] MEDS: Bacitracin 1 PACKET (13:19)
--- NOTE | 2018-07-13 13:37 | ED.GENADUL_ITS ---
Discharge Plan Disposition Patient Disposition: HOME Condition: Good Discharge Details Chief Complaint: Orthopedic Clinical Impression: Skin tear, Sprain of right shoulder Primary Care Provider: Avery Murphy ED Provider: Alpesh Gomez Home Meds and New Rx's Prescriptions: New lidocaine [Lidoderm] 1 PATCH patch 1 patch Topical Q24H Qty: 4 RF: 0 No Action methylprednisolone 4 mg tablet 4 mg PO DAILY PRN (Reason: gout attacks) Qty: 10 RF: 3 aspirin [Aspir-81] 81 MG tablet,delayed release (DR/EC) 81 mg PO DAILY RF: 0 Oxygen EACH HS Qty: 4 RF: 0 metoprolol tartrate 100 MG tablet 100 mg PO BID Qty: 180 RF: 3 nitroglycerin [Nitrostat] 0.4 MG tablet, sublingual 0.4 mg Sublingual PRN PRNQty: 25 RF: 6 atorvastatin [Lipitor] 40 mg tablet 40 mg PO DAILY Qty: 90 RF: 3 Contour Test Strips strip 1 ea Miscellaneous BID Qty: 180 RF: 11 lancets [BD Ultra Fine Lancets] 33 gauge misc 1 ea Miscellaneous DAILY Qty: 100 RF: 3 levothyroxine 75 mcg tablet 75 mcg PO DAILY@0600 Qty: 90 RF: 3 pen needle, diabetic needle .ROUTE .MEDSUPPLY Qty: 1 RF: 0 metformin 1,000 mg tablet 1,000 mg PO BID Qty: 180 RF: 3 glipizide 5 mg tablet 5 mg PO DAILY Qty: 90 RF: 3 Basaglar KwikPen U-100 Insulin 100 unit/mL (3 mL) insulin pen 37 unit subcut Dinner Time 3 Days Qty: 3 RF: 3 Eliquis 2.5 mg tablet 2.5 mg PO BID Qty: 180 RF: 3 amlodipine 5 mg tablet 5 mg PO DAILY 90 Days Qty: 90 RF: 3 cyanocobalamin (vitamin B-12) [Vitamin B-12] 500 MCG tablet 1,000 mcg PO DAILY Qty: 100 RF: 0 furosemide 20 mg tablet 30 mg PO DAILY 90 Days Qty: 135 RF: 3 Discharge Instructions Instructions: Shoulder Sprain (ED), Adhesive Capsulitis (ED) Additional Instructions: Your x-rays do not show any sign of fracture at this point. I suspect that you mildly damage to the ligaments. Please use the shoulder sling as directed, and perform the movements a few times every day to prevent frozen shoulder syndrome. Please change your bandage daily, and wash it gently with soap and water. Please apply triple antibiotic ointment in the interim between bandage changes. Please take Tylenol as needed for pain, and use a Lidoderm patch as directed if you notice any worsening of your symptoms, or any new symptoms such as worsening pain in your arm or elbow, change in color of your hand or arm, vomiting, diarrhea, fever, chills, shortness of breath, chest pain, numbness, weakness, or fainting , please return immediately to the emergency department for reevaluation. Please follow up with your primary care provider as soon as possible for reassessment and reevaluation. As always, it was a pleasure participating in your medical care today. Referrals: Avery Murphy DO [Primary Care Provider] - Medical Decision Making This is a 83-year-old male with multiple medical problems including Eliquis use who presents today for a mechanical fall. The patient in a mechanical trip and fell on his right shoulder and right elbow. He has a skin tear in his right elbow but no pain or mood issues with movement of the right elbow. His right shoulder demonstrates mild to moderate pain with internal rotation and flexion. No evidence of gross deformity. Suspect rotator cuff injury. We will get an x-ray to rule out acute fracture. No signs of trauma externally aside for the aforementioned components, no current clinical indication for additional radiographic imaging. 2:01 PM X-ray results per Dr. Chanel negative for any acute process. I see no signs of significant fracture on my personal interpretation. Skin tear was bandaged, and he is tolerated this well. Pain and mobility notably improved with Lidoderm patch. Suspect rotator cuff injury or ligamentous injury. Will give a sling, we had a long discussion about movements and exercises to prevent frozen shoulder syndrome. Recommend conservative management for the next 7 days, and close PCP follow-up. If no improvement he may require orthopedic follow-up on an outpatient basis. I have extensively reviewed the treatment plan and discharge instructions with the patient and their family. I have addressed all patient concerns at this time. The patient and family was made aware of what symptoms to monitor for that would warrant a return to the emergency department. Discussed the plan with the patient and family, they demonstrate verbal understanding and agreement with our assessment and plan at this time. HPI General Date/Time Provider Initiated Documentation: 07/13/18 12:52 . HPI Narrative: This is an 83-year-old male with a past medical history of chronic hypoxic respiratory failure, on nocturnal oxygen at 6L, as well as severe pulmonary hypertension, and restrictive lung disease. He also has known CAD s/p CABG, chronic systolic CHF with an EF of 45-50%, Afib on elequis Diabetes, and HTN. He presents today for evaluation of fall. Patient states that 30 minutes prior to arrival he fell and landed on his right shoulder and right elbow. He denies any pain in his right elbow but does state his right shoulder hurts with movement. He has not taken any NSAIDs. He does have a skin tear on his right lateral elbow. He denies any numbness or tingling or weakness. He denies any pain with movement of his elbow. He denies any chest head or neck pain. He did not hit his head he had no loss of consciousness. He has no other complaints at this time. Tetanus is up-to-date. Related Data Home Medications Medication Instructions Recorded Confirmed aspirin [Aspir-81] 81 mg PO DAILY tab-cap 05/11/12 07/13/18 Oxygen l HS #4 09/09/16 07/10/18 metoprolol tartrate 100 mg PO BID #180 tab-cap 11/25/16 07/13/18 nitroglycerin [Nitrostat] 0.4 mg SUBLINGUAL PRN PRN #25 tab 11/25/16 07/13/18 cyanocobalamin (vitamin B-12) 1,000 mcg PO DAILY #100 tab 03/24/17 07/13/18 [Vitamin B-12] atorvastatin 40 mg tablet 40 mg PO DAILY #90 tab-cap 11/28/17 07/13/18 blood sugar diagnostic strips #180 strip 12/30/17 07/13/18 lancets 33 gauge #100 ndl 01/02/18 07/13/18 levothyroxine 75 mcg tablet 75 mcg PO DAILY@0600 #90 tab 02/16/18 07/13/18 furosemide 30 mg PO DAILY 90 Days #135 tab-cap 02/25/18 07/13/18 pen needle, diabetic #1 02/26/18 07/13/18 metformin 1,000 mg tablet 1,000 mg PO BID #180 tab 03/26/18 07/13/18 glipizide 5 mg tablet 5 mg PO DAILY #90 tab 03/30/18 07/13/18 insulin glargine (U-100) 100 37 unit SUBCUT Dinner Time 3 Days 04/27/18 07/13/18 unit/mL (3 mL) subcutaneous pen #3 box apixaban 2.5 mg tablet 2.5 mg PO BID #180 tab 04/28/18 07/13/18 amlodipine 5 mg tablet 5 mg PO DAILY 90 Days #90 tab-cap 06/22/18 07/13/18 methylprednisolone 4 mg tablet 4 mg PO DAILY PRN #10 tab 07/10/18 07/13/18 lidocaine [Lidoderm] 1 patch TOPICAL Q24H #4 patch 07/13/18 Previous Rx's Medication Instructions Recorded metoprolol tartrate 100 mg PO BID #180 tab-cap 11/25/16 cyanocobalamin (vitamin B-12) 1,000 mcg PO DAILY #100 tab 03/24/17 [Vitamin B-12] atorvastatin 40 mg tablet 40 mg PO DAILY #90 tab-cap 11/28/17 blood sugar diagnostic strips #180 strip 12/30/17 lancets 33 gauge #100 ndl 01/02/18 levothyroxine 75 mcg tablet 75 mcg PO DAILY@0600 #90 tab 02/16/18 furosemide 30 mg PO DAILY 90 Days #135 tab-cap 02/25/18 metformin 1,000 mg tablet 1,000 mg PO BID #180 tab 03/26/18 glipizide 5 mg tablet 5 mg PO DAILY #90 tab 03/30/18 insulin glargine (U-100) 100 37 unit SUBCUT Dinner Time 3 Days 04/27/18 unit/mL (3 mL) subcutaneous pen #3 box apixaban 2.5 mg tablet 2.5 mg PO BID #180 tab 04/28/18 amlodipine 5 mg tablet 5 mg PO DAILY 90 Days #90 tab-cap 06/22/18 methylprednisolone 4 mg tablet 4 mg PO DAILY PRN #10 tab 07/10/18 lidocaine [Lidoderm] 1 patch TOPICAL Q24H #4 patch 07/13/18 Allergies Allergy/AdvReac Type Severity Reaction Status Date / Time clindamycin Allergy Intermediate rash Verified 07/13/18 12:56 EMEKA Inhibitors Allergy Unknown Verified 07/13/18 12:56 gemfibrozil Allergy Unknown Verified 07/13/18 12:56 lisinopril Allergy Unknown Verified 07/13/18 12:56 oxycodone Allergy Unknown Verified 07/13/18 12:56 indomethacin AdvReac Intermediate AVOID due Verified 07/13/18 12:56 to ANTICOAGULATION Thiazides AdvReac Unknown Verified 07/13/18 12:56 General Stated Complaint: Orthopedic SRUTHI: 3 Review of Systems Review of Systems All systems reviewed & are unremarkable except as noted in HPI and below PFSH Medical History Advance directive on file (Chronic) Hypomagnesemia (Resolved) Unspecified arthropathy, pelvic region and thigh (Chronic 02/15/11) Type 2 diabetes mellitus with hyperglycemia (Chronic 02/20/15) Restrictive lung disease (Chronic 09/09/16) Pulmonary hypertension (Chronic 10/03/17) Obesity (BMI 30.0-34.9) (Chronic 02/15/11) Other acute and subacute form of ischemic heart disease (Chronic 06/07/11) 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 (Chronic 06/07/11) Hyperlipidemia (Chronic 02/15/11) Hearing loss (Chronic 02/15/11) Essential hypertension (Chronic 02/15/11) Dyspnea on exertion (Chronic 05/11/13) Diabetes mellitus (Chronic 08/10/00) Cough (Resolved 04/03/12) Coronary artery disease involving [place] coronary artery of [place] heart without angina pectoris (Chronic 02/15/11) Chronic atrial fibrillation (Chronic) Benign neoplasm of colon (Resolved 02/15/11) Atrial arrhythmia (Chronic 02/15/11) Anticoagulation goal of INR 2 to 3 (Resolved 05/12/11) Anticoagulation adequate with anticoagulant therapy (Chronic 05/12/11) Adenoma of transverse colon (Resolved 02/15/11) Arthropathy (Chronic 02/15/11) Restrictive pattern present on pulmonary function testing (Chronic) Abnormal diffusion capacity determined by pulmonary function test (Chronic) RML pneumonia (Resolved) Gout (Chronic) Hypothyroid (Chronic) B12 deficiency (Chronic) Macrocytosis without anemia (Chronic) DVT prophylaxis (Resolved) ASCVD (arteriosclerotic cardiovascular disease) HLD (hyperlipidemia) HTN (hypertension) T2DM (type 2 diabetes mellitus) Tubular adenoma Surgical History Fracture, tibia (Acute ~02/1994) History of appendectomy (Chronic ~01/1954) Hx of CABG (Chronic ~02/2002) Hx of cholecystectomy (Chronic ~01/1991) Social History Smoking/Tobacco Use Status: Never Drug use: Never Household members: spouse Communication Needs: Hard of Hearing What is your relationship status?: Panel score (0-1 are the most socially isolated patients): 1 What type of physical activity do you participate in: regular exercise Frequency: 3-4 times per week Seatbelt use: always 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 3.ENT: Atraumatic external nose and ears. Moist MM. Neck: Symmetric, trachea midline, No thyromegaly. There is no evidence of raccoon eyes, burger sign, CSF rhinorrhea, mastoid tenderness, cranial crepitus, hemotympanum, exophthalmos, or hyphema. 4.CVS: +S1/S2, No murmurs or gallops. Peripheral pulses 2+ and equal in all extremities. Brisk capillary refill in all extremities. 5.RESP: Unlabored respiratory effort. Clear to auscultation bilaterally. No wheezes rales or rhonchi 6.GI: Soft, Nontender/Nondistended, No hepatosplenomegaly. No guarding or rebound. 7.MSK: Normocephalic, Extremities w/o deformity.No cyanosis or clubbing, right arm demonstrates normal movement of the wrist and fingers and hand, no tenderness of the wrist fingers hand or forearm or elbow. Notable skin tear over the right elbow which is superficial. No deep involvement. Notable pain with movement of the right shoulder. Pain is worse with internal rotation, and flexion. Minimal pain with abduction, posterior movement and external rotation. No deformity, no evidence of gross dislocation. No signs of trauma otherwise 8.Skin: Warm, Dry. Notable superficial skin tear not requiring sutures, over the right lateral elbow. No evidence of deep tissue involvement whatsoever. No active bleeding 9.Neuro: [facility] II-XII grossly intact. Sensation grossly intact, no focal neurologic deficits. 10.Psych: (AAO) x3. Appropriate mood and affect Course Vital Signs Temperature 36.5 C 07/13/18 12:53 Pulse 70 07/13/18 12:53 Respiratory Rate 20 07/13/18 12:53 Blood Pressure 148/93 H 07/13/18 12:53 Pulse Oximetry 91 L 07/13/18 12:53 Temperature 36.5 C 07/13/18 12:53 Temperature Source Temporal Artery Scan 07/13/18 12:53 Pulse 70 07/13/18 12:53 Respiratory Rate 20 07/13/18 12:53 Respiratory Effort Non-Labored 07/13/18 12:53 Blood Pressure 148/93 H 07/13/18 12:53 Pulse Oximetry 91 L 07/13/18 12:53 Oxygen Delivery Method Room Air 07/13/18 12:53 Oxygen Flow Rate 0 07/13/18 12:53 Pain Level 8 07/13/18 12:56
[2018-07-13] MEDS: Acetaminophen 500 MG TAB 1000 MG PO (13:47)
[2018-07-13] MEDS: Lidocaine 5% Patch 1 PATCH TP (13:48)
== END 2018-07-13 14:11 | disposition home or self-care (01) ==
PROVIDERS: Emergency Provider Student in an Organized Health Care Education/Training Program; PCP Family Medicine
DX: S51.011A Laceration without foreign body of right elbow, initial encounter (principal); S43.401A Unspecified sprain of right shoulder joint, initial encounter; W01.0XXA Fall on same level from slipping, tripping and stumbling without subsequent striking against object, initial encounter; Z79.01 Long term (current) use of anticoagulants; Z95.1 Presence of aortocoronary bypass graft; I25.10 Atherosclerotic heart disease of native coronary artery without angina pectoris; I50.9 Heart failure, unspecified; I11.0 Hypertensive heart disease with heart failure
CPT/HCPCS: 99284; 73030; 73080; 99282; L3650

== ENCOUNTER 2018-11-06 13:09 | Outpatient (REF) | payer MEDICARE, SELFPAY ==
[2018-11-06 14:11] LABS: Anion Gap 6.6 mmol/L (3-11); BUN 18 mg/dL (7-18); CO2 29.4 mmol/L (21.0-32.0); CREATININE 1.35 mg/dL (0.70-1.30); Calcium 9.1 mg/dL (8.5-10.1); Chloride 109 mmol/L (98-107); Glucose 101 mg/dL (70-100); Potassium 5.8 mmol/L (3.5-5.1); Sodium 145 mmol/L (136-145)
== END 2018-11-06 13:29 ==
LOC: LBN 13:09
PROVIDERS: PCP Family Medicine; Visit Provider Family Medicine
DX: N17.9 Acute kidney failure, unspecified (principal)
CPT/HCPCS: 80048

== ENCOUNTER 2018-12-25 11:16 | Outpatient (CLI) | payer MEDICARE, SELFPAY ==
[2018-12-25 12:07] LABS: Abs Immature Grans 0.02 k/cumm (0.0-0.09); Absolute Basophil Count 0.02 k/cumm (0.0-0.2); Absolute Eosinophil Count 0.23 k/cumm (0.0-0.7); Absolute Lymphocyte Count 1.46 k/cumm (1.2-3.4); Absolute Monocyte Count 0.82 k/cumm (0.11-0.7); Absolute Neutrophil Count 6.46 k/cumm (1.2-6.7); Basophils % 0.2; Eosinophils % 2.6; HGB 14.5 g/dL (13.5-17.5); Immature Grans % 0.2; Lymphocytes % 16.2; Mean Corp. HGB Concentration 31.5 g/dL (32.0-36.0); Mean Corpuscular Hemoglobin 28.8 pg (27.0-33.0); Mean Corpuscular Volume 91.3 fL (80-95); Mean Platelet Volume 11.8 fL (8.0-11.0); Monocytes % 9.1; Neutrophils % 71.7; Platelet Count 209 x1000/uL (130-400); RBC 5.04 m/cumm (4.50-6.00); RBC Distribution Width 16.9 % (11.8-14.1); White Blood Cell Count 9.01 k/cumm (4.4-10.8)
== END 2018-12-25 11:36 ==
PROVIDERS: PCP Family Medicine; Visit Provider Family Medicine
DX: R10.13 Epigastric pain (principal)
CPT/HCPCS: 36415; 85025

== ENCOUNTER 2019-01-01 14:30 | Outpatient (CLI) | payer MEDICARE, SELFPAY ==
--- NOTE | 2019-01-01 14:38 | DI.RAD_ITS ---
EXAM: XR CHEST 2V PA AND LATERAL INDICATION: PULMONARY HYPERTENSION I27.20, INCREASED SOB,? PNEUMOTHORAX. COMPARISON: XR CHEST 2V PA LATERAL from 06/18/2018 TECHNIQUE: 2D digital imaging was performed. FINDINGS: Heart size is stable. There is tortuosity of the thoracic aorta. Sternal wires and mediastinal clips are again seen and stable. There is prominence of the pulmonary arteries bilaterally suggesting pul monary artery hypertension. The lungs are clear. No effusions or pneumothoraces are identified. There is unchanged mild elevati on of the right hemidiaphragm. Degenerative changes are seen in the spine. IMPRESSION: No acute pulmonary process.
== END 2019-01-01 14:50 ==
PROVIDERS: PCP Family Medicine; Visit Provider Internal Medicine
DX: I27.20 Pulmonary hypertension, unspecified (principal); R06.02 Shortness of breath
CPT/HCPCS: 71046

== ENCOUNTER 2019-04-26 20:00 | Outpatient (REF) | payer MEDICARE, SELFPAY ==
[2019-04-26 19:31] LABS: Anion Gap 8.5 mmol/L (3-11); BUN 31 mg/dL (7-18); CO2 31.5 mmol/L (21.0-32.0); CREATININE 1.22 mg/dL (0.70-1.30); Calcium 9.2 mg/dL (8.5-10.1); Chloride 103 mmol/L (98-107); Estimated GFR 56.87 (mL/min/1.73m2); Glucose 164 mg/dL (74-106); Potassium 4.7 mmol/L (3.5-5.1); Sodium 143 mmol/L (136-145)
== END 2019-04-26 20:20 ==
LOC: LBN 20:00
PROVIDERS: PCP Family Medicine; Visit Provider Family Medicine
DX: N17.9 Acute kidney failure, unspecified (principal)
CPT/HCPCS: 80048

== ENCOUNTER 2020-05-25 03:08 | Outpatient (CLI) | payer MEDICARE, SELFPAY ==
[2020-05-25 14:44] LABS: Anion Gap 8.8 mmol/L (3-11); BUN 40 mg/dL (7-18); CO2 34.2 mmol/L (21.0-32.0); CREATININE 1.6 mg/dL (0.70-1.30); Calcium 9.9 mg/dL (8.5-10.1); Chloride 100 mmol/L (98-107); Estimated GFR 41.39 (mL/min/1.73m2); Glucose 140 mg/dL (74-106); Potassium 4.1 mmol/L (3.5-5.1); Sodium 143 mmol/L (136-145)
== END 2020-05-25 03:09 | disposition home or self-care (01) ==
LOC: LBO 03:08
PROVIDERS: PCP Family Medicine; Visit Provider Family Medicine
DX: I50.30 Unspecified diastolic (congestive) heart failure (principal)
CPT/HCPCS: 36415; 80048

== ENCOUNTER 2020-09-27 13:19 | Outpatient (REF) | payer MEDICARE, SELFPAY | END 2020-09-27 13:20 | disposition home or self-care (01) | LOC: LBO 13:19 | PROVIDERS: Nurse Practitioner Adult Health; PCP Family Medicine; Visit Provider Family Medicine | DX: M1A.9XX1 Chronic gout, unspecified, with tophus (tophi) (principal) | CPT/HCPCS: 84550 ==

== ENCOUNTER 2021-03-25 21:21 | Emergency (ER) | payer MEDICARE, SELFPAY ==
--- NOTE | 2021-03-25 21:31 | ED.GENADUL_ITS ---
Discharge Plan Disposition Patient Disposition: Discharge Details Clinical Impression: Cardiopulmonary arrest Primary Care Provider: Avery Murphy ED Provider: Fran Adames Medical Decision Making 85-year-old male presents via EMS with family in attendance. He was watching football when he went to the bathroom, developed dizziness and shortness of breath, fell to the ground and then became unresponsive. Patient was with agonal respirations upon the arrival of EMS. IO was placed, supraglottic airway was placed, patient was given epinephrine x3, he did not have any return of spontaneous circulation. Upon arrival to the ER he is pulseless and lifeless. Bedside ultrasound shows no cardiac activity. Family states patient would not want further life-sustaining measures and patient was pronounced at 9:25 PM. Case discussed with on-call medical director of hospice, Khurram Luo. No indication to pursue autopsy. I will sign the certificate. HPI General Mode of arrival: EMS . Date/Time Provider Initiated Documentation: 03/25/21 21:44 . Limitations to Documentation: other (Unresponsive) . Information obtained by: family and EMS . History of Present Illness 85 year old M presents to the emergency department with the chief complaint of Patient abruptly unresponsive at home, now pulseless, described as severe, Patient started experiencing this minute(s) improves with No relieving factors improve symptom(s), No exacerbating factors reported . Patient did receive the following treatments prior to arrival, other (Epinephrine x3) Related Data Home Medications Medication Instructions Recorded Confirmed aspirin 81 mg tablet,delayed 81 mg PO DAILY tab-cap 05/11/12 02/27/21 release (Aspir-) Oxygen l HS #4 09/09/16 02/27/21 nitroglycerin 0.4 mg sublingual 0.4 mg SUBLINGUAL PRN PRN #25 tab 11/25/16 02/27/21 tablet (Nitrostat) cyanocobalamin (vitamin B-12) 500 1,000 mcg PO DAILY #100 tab 03/24/17 02/27/21 mcg tablet (Vitamin B-12) potassium chloride 20 mEq 20 meq PO DAILY #90 tab 11/04/19 02/27/21 tablet,extended release(part/cryst) blood sugar diagnostic (Contour #200 strip 03/27/20 02/27/21 Test Strips) glipizide 5 mg tablet 5 mg PO DAILY #90 tab 03/27/20 02/27/21 lancets 33 gauge (BD Ultra Fine #200 each 03/27/20 02/27/21 Lancets) pen needle, diabetic, safety 30 #100 each 03/27/20 02/27/21 gauge x 1/3 (Novofine Autocover) apixaban 2.5 mg tablet (Eliquis) 2.5 mg PO BID #180 tab 05/15/20 02/27/21 furosemide 80 mg tablet See Rx Instructions PO DAILY 05/22/20 furosemide 40 mg tablet (Lasix) 40 mg PO DAILY 06/01/20 02/27/21 insulin glargine 100 unit/mL (3 18 unit (0.18 mL) SUBCUT Dinner 08/07/20 02/27/21 mL) subcutaneous pen (Basaglar Time #3 ml KwikPen U-100 Insulin) metoprolol tartrate 100 mg tablet 100 mg PO BID #180 tab-cap 09/07/20 02/27/21 prednisone 50 mg tablet 50 mg PO DAILY PRN #5 tab 09/27/20 02/27/21 allopurinol 300 mg tablet 300 mg PO DAILY #90 tab 10/09/20 02/27/21 amlodipine 2.5 mg tablet 2.5 mg PO DAILY 11/15/20 02/27/21 spironolactone 50 mg tablet 100 mg PO DAILY #180 tab 01/01/21 02/27/21 levothyroxine 75 mcg tablet 75 mcg PO DAILY@0600 #90 tab 02/19/21 02/27/21 metformin 1,000 mg tablet 1,000 mg PO BID #180 tab 02/26/21 02/27/21 atorvastatin 40 mg tablet (Lipitor) 40 mg PO DAILY #90 tab-cap 03/19/21 prednisone 20 mg tablet 20 mg PO DAILY 5 Days #5 tab 03/23/21 03/23/21 Previous Rx's Medication Instructions Recorded cyanocobalamin (vitamin B-12) 500 1,000 mcg PO DAILY #100 tab 03/24/17 mcg tablet (Vitamin B-12) potassium chloride 20 mEq 20 meq PO DAILY #90 tab 11/04/19 tablet,extended release(part/cryst) blood sugar diagnostic (Contour #200 strip 03/27/20 Test Strips) glipizide 5 mg tablet 5 mg PO DAILY #90 tab 03/27/20 lancets 33 gauge (BD Ultra Fine #200 each 03/27/20 Lancets) pen needle, diabetic, safety 30 #100 each 03/27/20 gauge x 1/3 (Novofine Autocover) apixaban 2.5 mg tablet (Eliquis) 2.5 mg PO BID #180 tab 05/15/20 insulin glargine 100 unit/mL (3 18 unit (0.18 mL) SUBCUT Dinner 08/07/20 mL) subcutaneous pen (Basaglar Time #3 ml KwikPen U-100 Insulin) metoprolol tartrate 100 mg tablet 100 mg PO BID #180 tab-cap 09/07/20 prednisone 50 mg tablet 50 mg PO DAILY PRN #5 tab 09/27/20 allopurinol 300 mg tablet 300 mg PO DAILY #90 tab 10/09/20 spironolactone 50 mg tablet 100 mg PO DAILY #180 tab 01/01/21 levothyroxine 75 mcg tablet 75 mcg PO DAILY@0600 #90 tab 02/19/21 metformin 1,000 mg tablet 1,000 mg PO BID #180 tab 02/26/21 atorvastatin 40 mg tablet (Lipitor) 40 mg PO DAILY #90 tab-cap 03/19/21 prednisone 20 mg tablet 20 mg PO DAILY 5 Days #5 tab 03/23/21 Allergies Allergy/AdvReac Type Severity Reaction Status Date / Time clindamycin Allergy Intermediate rash Verified 03/25/21 21:18 EMEKA Inhibitors Allergy Unknown Verified 03/25/21 21:18 gemfibrozil Allergy Unknown Verified 03/25/21 21:18 lisinopril Allergy Unknown Verified 03/25/21 21:18 oxycodone Allergy Unknown Verified 03/25/21 21:18 indomethacin AdvReac Intermediate AVOID due Verified 03/25/21 21:18 to ANTICOAGULATION Thiazides AdvReac Unknown Verified 03/25/21 21:18 General SRUTHI: 3 Review of Systems Narrative: Has been struggling with his breathing. Wish to be DNR, DNI, family asked that further life-saving measures be stopped. 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 05/2010;also left thumb Type 2 diabetes mellitus with hyperglycemia (Chronic 02/20/15) Restrictive lung disease (Chronic 09/09/16) Pulmonary hypertension (Chronic 10/03/17) [place] [facility] [place]. 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 RA pressure up Hyperlipidemia (Chronic 02/15/11) goal LDL<70 Essential hypertension (Chronic 02/15/11) goal <130/80 Dyspnea on exertion (Chronic 05/11/13) 06/2013 [facility] [place]: CX[place], CT, ECHO: incr RA pressure, ?atypical pneumonia; O2 sat 90 Diabetes mellitus (Chronic 08/10/00) 08/10 dx; pos non-prolif retinopathy (eye doc in [facility] [place]); neg retinopathy 04/2012; goal A1c < 7.5 Coronary artery disease involving [place] coronary artery of [place] heart without angina pectoris (Chronic 02/15/11) s/p inf [place],s/p CABG RCA 02/12; Cath 2011: 3 vessel dis, patent RCA graft; ECHO EF 55% 2013; PA pressure 43; f/u; Dr Yang 07/09/17~ right heart catheterization. Alisson Bhandari MD [facility] [place] Chronic atrial fibrillation (Chronic) Atrial arrhythmia (Chronic 02/15/11) [place] [facility] [place] again w/empyema; no warfarin d/c 01/17 [place]; dabigatron added 05/2011 Anticoagulation adequate with anticoagulant therapy (Chronic 05/12/11) Dabigatran 05/2011 Dr. Jacinto Arthropathy (Chronic 02/15/11) [place] inj. 05/2010;also left thumb, pelvis, thigh Restrictive pattern present on pulmonary function testing (Chronic) Abnormal diffusion capacity determined by pulmonary function test (Chronic) Gout (Chronic) Hypothyroid (Chronic) B12 deficiency (Chronic) Macrocytosis without anemia (Chronic) Medical History ASCVD (arteriosclerotic cardiovascular disease) DVT prophylaxis HLD (hyperlipidemia) HTN (hypertension) T2DM (type 2 diabetes mellitus) Tubular adenoma Surgical History Fracture, tibia (~02/1994) Left History of appendectomy (~01/1954) History of tonsillectomy and adenoidectomy Hx of CABG (~02/2002) Hx of cholecystectomy (~01/1991) Family History Mother , cancer at age 71. Cancer RAIL TRACK LAYER CANCER Father , cva at age 82. Stroke Hypertension Sister No problems noted. Brother No problems noted. Brother No problems noted. Social History Smoking/Tobacco Use Status: Never Smoking risk assessment performed?: Yes Alcohol Intake: never Drug use: Never Household members: spouse Communication Needs: Hard of Hearing and Corrective Lenses current occupation: retired business local owner operator truck driver Pets and animals: Yes Pets and animals: dog(s) Current gender identity: male What is your relationship status?: Panel score (0-1 are the most socially isolated patients): 1 What type of physical activity do you participate in: regular exercise Frequency: 3-4 times per week Seatbelt use: always Drive intox or ride w/intox owner operator tanker truck driver: No Water heater temp set <120 deg: Yes Working smoke detector in home: Yes Fire extinguisher in home: Yes Carbon monox detector in home: Yes Do you feel safe at home: Yes Do you feel safe in your relationship?: Yes Victim of physical abuse: No Victim of emotional abuse: No Victim of sexual abuse: No Additional Social history: info from old record Exam Narrative Exam Narrative: GEN: Pale, cool to the touch, pulseless HEAD: Normocephalic, atraumatic ENT: Mucous membranes dry, oropharynx unremarkable, External ear exam unremarkable EYES: Fixed and dilated, no corneal reflex NECK: Supple, no asymmetry CHEST/RESP: No respiratory effort CARDIOVASCULAR: No heart sounds ABDOMEN: Soft, no mass EXT: Cool to the touch Neuro: Unresponsive, unable to assess Psych: Unable to assess
== END 2021-03-26 00:23 | disposition expired ==
LOC: ER 22:04
PROVIDERS: Emergency Provider Emergency Medicine; PCP Family Medicine
DX: I46.9 Cardiac arrest, cause unspecified (principal)